=== PATIENT | female | born 1970 | race Caucasian/White ===

== ENCOUNTER 2021-01-01 16:02 | Emergency (ER) | payer MEDICAID, SELFPAY ==
[2021-01-01 16:03] VITALS: BP 113/87; PULSE 102; RESP 18; TEMP 36.1; O2SAT 100; BMI 30.7
--- NOTE | 2021-01-01 16:57 | CT_ITS ---
INDICATION: abd pain -- IV PO Contrast EXAMINATION: CT ABDOMEN AND PELVIS WITH CONTRAST - CT Abdomen And Pelvis W/ Contrast Injection TECHNIQUE: Helically acquired images were obtained of the abdomen and pelvis following IV contrast. A radiation dose optimization technique was used for this scan. IV Contrast dosage and agent: 100 mL of ISOVUE-370 Oral contrast: Not specified. COMPARISON: No recent comparison imaging. FINDINGS: LOWER CHEST: There is moderate bibasilar atelectasis. Only a small portion of the heart is included in the [id number]; not well assessed. No significant pericardial effusion. LIVER: Homogeneous. No focal mass. Note that the a small portion of the superior aspect of the liver is excluded from the bmbig-[id number] and is not visualized. GALLBLADDER AND BILIARY TREE: No calcified gallstones. No gallbladder distension or wall edema. No intra- or extrahepatic biliary ductal dilation. PANCREAS: No focal cystic or solid mass. SPLEEN: Normal size without focal cystic or solid mass. ADRENAL GLANDS: No nodules. KIDNEYS AND URETERS: Normal renal size and position. No hydronephrosis. PERITONEUM: No ascites or free air. No other fluid collection. BOWEL: Normal appendix identified. No stomach or bowel distension. No focal inflammatory change. LYMPH NODES: No enlarged mesenteric or retroperitoneal lymph nodes. VESSELS: Aorta is non-dilated. Scattered intimal calcifications without stenosis. URINARY BLADDER: Unremarkable. REPRODUCTIVE ORGANS: Absent. ABDOMINAL WALL: Small fat filled umbilical hernia. BONES: No lytic or blastic abnormality. CT/Abdomen/Pelvis WITH Contrast IMPRESSION: Negative CT of the abdomen and pelvis with contrast. Note that a small portion of the superior margin of the liver is excluded from the [id number]-[id number]. No abnormality suggested. Electronically Signed: Eagle Cartwright DO at 20:16 EDT Tel , Service support ,
--- NOTE | 2021-01-01 17:03 | EDS_ITS ---
HPI History of Present Illness Chief Complaint: Abd Pain Informant: patient Onset/Context/Timing Onset: Weeks Context: Gradual Onset Current Severity: Severe Maximum Severity: Severe Narrative Narrative: Patient presents with multitude of complaints. She states that 1 or 2 months ago she developed sores on her scalp. She started picking at her hair and has noted significant hair loss. Her skin has been very dry and burning. She saw her doctor was given a prescription for special shampoo and Eucerin cream. She states this is not improving. She reports trying to contact her doctor for follow-up but unable to get through on the phone. 3 weeks ago she developed back pain and has been seeing her chiropractor regularly. 1 week ago she noted the pain from her back was wrapping around the right flank and into the right abdomen. She does feel as if she is constipated. Last bowel movement was 4 days ago. She is passing gas. [facility] Medical History Bipolar 1 disorder Dystonic movements Restless leg syndrome Home Medications paroxetine HCl [Paxil CR] 50 mg PO DAILY 08/08/13 [History Last Taken 09/02/14] topiramate 200 mg PO DAILY 08/08/13 [History Last Taken 09/02/14] hydrocodone-acetaminophen 1 tab PO Q6H PRN 3 Days #10 tab 01/01/21 [Rx Last Taken Unknown] potassium chloride 20 meq PO BID #10 tab 01/01/21 [Rx Last Taken Unknown] Allergy/AdvReac Type Severity Reaction Status Date / Time lamotrigine [From Lamictal] Allergy Hives Verified 01/01/21 16:03 sulfamethoxazole Allergy Swelling Verified 01/01/21 16:03 [From Bactrim] trimethoprim [From Bactrim] Allergy Swelling Verified 01/01/21 16:03 clindamycin HCl AdvReac Nausea/Vom/ Verified 01/01/21 16:03 [From Cleocin] Diarrhea clindamycin palmitate HCl AdvReac Nausea/Vom/ Verified 01/01/21 16:03 [From Cleocin] Diarrhea clindamycin phosphate AdvReac Nausea/Vom/ Verified 01/01/21 16:03 [From Cleocin] Diarrhea Social History Smoking Status: Current every day smoker tobacco type: cigarettes ROS ROS ED Constitutional Constitutional ED: Denies chills or fever(s) Eyes Eyes: Denies change in vision ENT ENT ED: Denies sore throat Cardiovascular Cardiovascular: Denies chest pain Respiratory/Chest Respiratory/Chest: Denies cough or dyspnea Gastrointestinal Gastrointestinal: Reports abdominal pain, constipation and nausea; Denies diarrhea or vomiting Genitourinary Genitourinary ED: Denies dysuria Musculoskeletal Musculoskeletal: Reports back pain Integumentary Reports rash Neurologic Neurologic: Denies headache(s) or weakness Allergic/Immunologic Allergic/Immunologic ED: Denies urticaria EXAM Physical Exam Const Vital Signs: 01/01/21 16:03 01/01/21 19:17 Temperature 96.9 F L Temperature Source Temporal Pulse Rate 102 H Respiratory Rate 18 16 Blood Pressure 113/87 H Blood Pressure Mean 95 Pulse Ox 100 Oxygen Delivery Method Room Air Positive well nourished and well developed General Appearance ED: well developed HEENT Reports normocephalic and head/scalp atraumatic Eyes PERRL and EOMs intact bilaterally Neck supple Chest Wall inspection of chest normal and palpation of chest normal Resp normal respiratory effort and clear to auscultation bilaterally Cardio regular rate and regular rhythm GI Palpation: soft and tender RLQ and RUQ Extremity normal to inspection Neuro oriented x3 and no sensory deficits noted Sensorium / Orientation: alert Motor Exam: strength 5/5 throughout Psych mental status grossly normal Skin Skin Narrative: Scabbed lesions noted on her scalp and back. No sign of secondary infection. MDM MDM MDM Narrative Medical decision making narrative: Lab work, urinalysis, CT scan obtained. Patient was given morphine and Zofran for pain. Lab Data Attestation: I reviewed the patient's lab results. Labs: Laboratory Results - last 24 hr 01/01/21 01/01/21 01/01/21 17:25 17:25 17:35 WBC 7.7 RBC 4.59 Hgb 14.7 Hct 43.8 MCV 95.4 MCH 32.0 MCHC 33.6 RDW Std Deviation 50.7 H RDW Coeff of Sade 14.7 H Plt Count 292 MPV 9.2 Immature Gran % (Auto) 0.300 Neut % (Auto) 57.0 Lymph % (Auto) 33.2 [place] % (Auto) 5.9 Eos % (Auto) 2.7 Baso % (Auto) 0.9 Absolute Neuts (auto) 4.4 Absolute Lymphs (auto) 2.55 Nucleated RBC % 0 Sodium 142 Potassium 3.0 L Chloride 110 H Carbon Dioxide 26.0 Anion Gap 6 BUN 6 L Creatinine 1.03 H Estim Creat Clear Calc 55.25 Est GFR (MDRD) Af Amer 73 Est GFR (MDRD) Non-Af 61 BUN/Creatinine Ratio 5.8 L Glucose 88 Calcium 8.9 Total Bilirubin 0.50 Direct Bilirubin 0.11 AST 14 L ALT 20 Alkaline Phosphatase 168 H Total Protein 8.0 Albumin 3.9 Globulin 4.1 Lipase 54 L Urine Color Yellow Urine Clarity Cloudy Urine pH 7.0 Ur Specific [place] 1.010 Urine Protein 30 H Urine Glucose (UA) Normal Urine Ketones 5 H Urine Occult Blood 10 H Urine Nitrite Negative Urine Bilirubin Negative Urine Urobilinogen 1 H Ur Leukocyte Esterase 25 H Urine RBC 0-5 SEEN Urine WBC 0-5 SEEN Ur Squamous Epith Cells 5-10 SEEN Urine Bacteria 1+ Hyaline Casts 0-5 SEEN Urine Mucus 3+ Radiography Diagnostic Testing: Radiology Impression Abdomen/Pelvis CT 01/01/21 16:57 IMPRESSION: Negative CT of the abdomen and pelvis with contrast. Note that a small portion of the superior margin of the liver is excluded from the [id number]-ii-drgo. No abnormality suggested. Electronically Signed: Eagle Cartwright DO at 20:16 EDT Tel , Service support , Treatment and Re-Evaluation Comments:: Lab results significant only for potassium of 3.0. This was replaced orally in the emergency room. Urinalysis does show 1+ bacteria, however 5-10 epithelial cells and no other markers for infection. Test results discussed with the patient at bedside. Patient will be given analgesics and potassium replacement for home. Advised to follow-up with her primary care physician. Return instructions are provided. Discharge Plan Triage Chief Complaint: Abd Pain ED Provider: Val Domingo Dx/Rx/DC Orders Clinical Impression: Abdominal pain, Hypokalemia Instructions: ED Abdominal Pain Unkn Cause Fem, ED Hypokalemia Prescriptions: New hydrocodone-acetaminophen 5-325 mg tablet 1 tab PO Q6H PRN (Reason: pain) 3 Days Qty: 10 RF: 0 potassium chloride 20 mEq tablet extended release 20 meq PO BID Qty: 10 RF: 0 No Action topiramate 200 MG tablet 200 mg PO DAILY RF: 0 paroxetine HCl [Paxil CR] 25 MG tablet extended release 24 hr 50 mg PO DAILY RF: 0 Primary Care Provider: John Marcos Referrals: John Marcos MD [Primary Care Provider] - 1-2 Weeks Disposition Disposition: Home, Self Care
[2021-01-01] MEDS: 0.9% Normal Saline 1,000 ML 1000 ML IV (17:28)
[2021-01-01] MEDS: Morphine 4 MG/ML Syringe IV ×2 (17:28→20:41)
[2021-01-01] MEDS: Ondansetron 4 MG/2 ML Vial IV (17:28)
[2021-01-01 18:04] LABS: Absolute Lymphocyte Count 2.55 X10^3/uL (0.83-4.51); Absolute Neutrophil Count 4.4 X10^3/uL (2.0-7.7); Basophil# 0.07 X10^3/uL; Basophil% 0.9 % (0-1); Eosinophil# 0.21 X10^3/uL; Eosinophils% 2.7 % (0-5); Hematocrit 43.8 % (37-47); Hemoglobin 14.7 g/dL (12.0-15.0); Lymphocyte # 2.55 X10^3/ul (0.83-4.51); Lymphocyte % 33.2 % (19-41); Mean Corp Hgb Conc 33.6 g/dL (32-36); Mean Corpuscular Volume 95.4 fL (81-99); Mean Platelet Vol. 9.2 fl (6.2-12.0); Monocyte# 0.45 X10^3/uL; Monocyte% 5.9 % (0-10); NRBC Flagged by Analyzer 0 % (0-5); Neutrophil # 4.39 X10^3/uL (2.7-7.7); Platelet Count 292 K/mm3 (150-450); RBC Distribution Width CV 14.7 % (11.6-14.6); RBC Distribution Width SD 50.7 fl (35.1-43.9); Red Blood Count 4.59 M/mm3 (4.2-5.4); White Blood Count 7.7 K/mm3 (4.4-11.0)
[2021-01-01 18:27] LABS: AST(SGOT) 14 U/L (15-37); Alanine Aminotransfer ALT/SGPT 20 U/L (13-56); Albumin, Serum 3.9 g/dL (3.2-5.0); Alkaline Phosphatase 168 U/L (45-117); Anion Gap 6 (5-15); BUN 6 mg/dL (7-18); BUN/Creat Ratio 5.8 RATIO (10-20); Bilirubin, Direct 0.11 mg/dL (0.00-0.30); Calcium,Total 8.9 mg/dL (8.5-10.1); Chloride 110 mmol/L (98-107); Creatinine, Serum 1.03 mg/dL (0.55-1.02); EST Glomerular Filtration Rate 61 mL/min (>60); Est Glom Filt Rate - Afr Amer 73 mL/min (>60); Estimated Creatinine Clearance 55.25 ml/min; Globulin 4.1 g/dL (2.2-4.2); Glucose 88 mg/dL (74-106); Lipase 54 U/L (73-393); Sodium Level 142 mmol/L (136-145)
[2021-01-01 18:42] LABS: Color, Urine Yellow (Yellow); Glucose, Dipstick Normal (Normal); Ketone-Dipstick 5 mg/dl (Negative); Leukocyte Esterase-Dipstick 25 /ul (Negative); Nitrite-Dipstick Negative (Negative); Occult Blood-Urine 10 /ul (Negative); Protein-Dipstick 30 mg/dl (Negative); Urine Bilirubin Dipstick Negative (Negative); Urine Clarity Cloudy (Clear); Urine Urobilinogen 1 mg/dl (Normal)
[2021-01-01 18:53] LABS: Mucous, Urine 3+ /hpf (<or=2+)
[2021-01-01 18:55] LABS: Hyaline Cast 0-5 SEEN /lpf (0-5); Red Blood Cells-Urine 0-5 SEEN /hpf (0-5); Squamous Epithelial Cells - UA 5-10 SEEN /hpf (5-10); White Blood Cells 0-5 SEEN /hpf (0-5)
[2021-01-01 18:57] LABS: Bacteria 1+ /hpf (None Seen)
[2021-01-01 19:17] VITALS: RESP 16
[2021-01-01] MEDS: Ketorolac 30 MG/ML Syringe IV (20:39)
[2021-01-01] MEDS: Potassium Chloride Oral Tablet 20 MEQ 40 MEQ PO (20:39)
[2021-01-01 21:42] VITALS: BP 114/60; PULSE 78; RESP 18
== END 2021-01-01 21:43 | disposition home or self-care (01) ==
PROVIDERS: Emergency Provider Emergency Medicine; PCP Family Medicine
DX: R10.11 Right upper quadrant pain (principal); R10.31 Right lower quadrant pain; E87.6 Hypokalemia; F31.9 Bipolar disorder, unspecified; F17.210 Nicotine dependence, cigarettes, uncomplicated; Z79.899 Other long term (current) drug therapy
CPT/HCPCS: 74177; 80048; 80076; 81001; 83690; 85025; 96361; 96374; 96375; 99283; J7030; Q9967; A4216; J2405

== ENCOUNTER 2021-01-09 17:53 | Emergency (ER) | payer MEDICAID, SELFPAY ==
[2021-01-09 17:56] VITALS: BP 94/73; PULSE 111; RESP 17; TEMP 36.9; O2SAT 97; BMI 30.6
[2021-01-09 18:16] VITALS: BP 144/108; PULSE 119; RESP 20; O2SAT 96
--- NOTE | 2021-01-09 18:46 | EDS_ITS ---
HPI History of Present Illness Chief Complaint: Abd Pain Informant: patient Narrative Narrative: 50-year-old female presenting to emergency department with multiple medical complaints. She tells me that she has some sores in her head and has been losing her hair and saw her doctor for this yesterday. She notes that her body hurts all over. She was seen in the emergency department 8 days ago with constipation. At that time basic blood work was normal and a CT of the abdomen pelvis did not demonstrate anything acute. She states she has not yet had a bowel movement. She has tried several hnwi-lsv-puxurug outlets with no relief. She states she feels very bloated. Today she was at her daughter's house and felt a warm gushing sensation in the right lower quadrant going down her right medial thigh. She denies any urinary symptoms. Patient states that she is ex tremely emotional and starts to cry because she feels that no one is listening to her and helping her with her medical issues. Nursing reports that the patient had a possible syncopal episode in triage. Patient did not have any postictal symptoms. [facility] Medical History Bipolar 1 disorder Dystonic movements Restless leg syndrome Home Medications paroxetine HCl [Paxil CR] 50 mg PO DAILY 08/08/13 [History Last Taken 09/02/14] topiramate 200 mg PO DAILY 08/08/13 [History Last Taken 09/02/14] hydrocodone-acetaminophen 1 tab PO Q6H PRN 3 Days #10 tab 01/01/21 [Rx Last Taken Unknown] ammonium lactate TOPICAL 01/09/21 [History Last Taken Unknown] mupirocin TOPICAL 01/09/21 [History Last Taken Unknown] polyethylene glycol 3350 01/09/21 [History Last Taken Unknown] prednisone 01/09/21 [History Last Taken Unknown] Allergy/AdvReac Type Severity Reaction Status Date / Time lamotrigine [From Lamictal] Allergy Hives Verified 01/09/21 17:56 sulfamethoxazole Allergy Swelling Verified 01/09/21 17:56 [From Bactrim] trimethoprim [From Bactrim] Allergy Swelling Verified 01/09/21 17:56 clindamycin HCl AdvReac Nausea/Vom/ Verified 01/09/21 17:56 [From Cleocin] Diarrhea clindamycin palmitate HCl AdvReac Nausea/Vom/ Verified 01/09/21 17:56 [From Cleocin] Diarrhea clindamycin phosphate AdvReac Nausea/Vom/ Verified 01/09/21 17:56 [From Cleocin] Diarrhea Social History (Updated 01/09/21 @ 18:[address] Endy Haynes, DO) Smoking Status: Current every day smoker tobacco type: cigarettes substance use type: does not use ROS ROS ED Constitutional Constitutional ED: Denies chills or weight loss Eyes Eyes: Denies change in vision or diplopia ENT ENT ED: Denies ear pain, rhinorrhea or sore throat Cardiovascular Cardiovascular: Denies chest pain, orthopnea, palpitations or racing heartbeat Respiratory/Chest Respiratory/Chest: Denies cough, dyspnea or orthopnea Gastrointestinal Gastrointestinal: Reports abdominal pain and constipation; Denies diarrhea, nausea or vomiting Genitourinary Genitourinary ED: Denies dysuria, hematuria or urinary frequency Musculoskeletal Musculoskeletal: Reports myalgias; Denies arthralgias Integumentary Reports rash; Denies abscess Neurologic Neurologic: Denies headache(s) or weakness Psychiatric Psychiatric: Denies anxiety, depression, suicidal ideation or suicidal thoughts Endocrine Endocrinology: Denies polydipsia, polyphagia or polyuria Allergic/Immunologic Allergic/Immunologic ED: Denies mouth swelling, tongue swelling or urticaria EXAM Physical Exam Const Vital Signs: 01/09/21 17:56 01/09/21 18:16 Temperature 98.5 F Temperature Source Temporal Pulse Rate 111 H 119 H Respiratory Rate 17 20 H Blood Pressure 94/73 144/108 H Blood Pressure Mean 80 120 Pulse Ox 97 96 Oxygen Delivery Method Room Air Room Air Positive well nourished, well developed and obese General Appearance ED: well developed Nutritional Appearance: obese HEENT Reports normocephalic, head/scalp atraumatic, TM's clear and moist mucous membranes HEENT Narrative: Patient has some flat erythematous patches on her scalp each 1/2 cm or less. Lot of the hair has been shaved off. Tympanic Membrane ED: Yes TM's clear Eyes PERRL and EOMs intact bilaterally Neck no lymphadenopathy, supple and no JVD Resp normal respiratory effort and clear to auscultation bilaterally Cardio regular rate, regular rhythm and no murmurs GI GI Narrative: Patient complains of tenderness palpation over the lower quadrants. There is no guarding or rebound. She states that despite it hurting when I push it actually feels good. Palpation: soft; Negative for guarding Back/Spine no CVA tenderness and normal ROM Extremity normal to inspection General Extremety ED: Negative for edema General Extremity: Negative for edema Neuro oriented x3 and CN's II-XII intact bilaterally Sensorium / Orientation: alert Motor Exam: strength 5/5 throughout Psych mental status grossly normal Mood & Affect: Negative for depressed or tearful Skin no rashes or lesions noted and no wounds MDM MDM MDM Narrative Medical decision making narrative: Urinalysis is slightly contaminated but no overt infection. My interpretation of the plain films of the abdomen is no obstructive pattern abscess or fecal impaction. Patient does not appear to have a significant stool burden either. Her feeling of a warm gush cross the lower abdomen is unique. I do not see anything emergent causing the patient's symptoms I would recommend continued follow-up with her doctor. Lab Data Labs: Laboratory Results - last 24 hr 01/09/21 18:56 Urine Color Yellow Urine Clarity Clear Urine pH 8.0 Ur Specific [place] 1.010 Urine Protein Negative Urine Glucose (UA) Normal Urine Ketones Negative Urine Occult Blood Negative Urine Nitrite Negative Urine Bilirubin Negative Urine Urobilinogen Normal Ur Leukocyte Esterase 100 H Urine RBC 0 SEEN Urine WBC 0-5 SEEN Ur Squamous Epith Cells 5-10 SEEN Urine Bacteria 0 SEEN Urine Mucus 0 SEEN Urine Yeast 1+ Discharge Plan Triage Chief Complaint: Abd Pain ED Provider: Endy Haynes Dx/Rx/DC Orders Clinical Impression: Abdominal pain, Constipation Instructions: How the Colon Works Prescriptions: No Action topiramate 200 MG tablet 200 mg PO DAILY RF: 0 paroxetine HCl [Paxil CR] 25 MG tablet extended release 24 hr 50 mg PO DAILY RF: 0 hydrocodone-acetaminophen 5-325 mg tablet 1 tab PO Q6H PRN (Reason: pain) 3 Days Qty: 10 RF: 0 prednisone 10 mg tablet RF: 0 ammonium lactate 12 % lotion TOPICAL RF: 0 mupirocin 2 % ointment TOPICAL RF: 0 polyethylene glycol 3350 17 gram/dose powder RF: 0 Primary Care Provider: John Marcos Referrals: John Marcos MD [Primary Care Provider] - 1 Week Disposition Disposition: Home, Self Care
[2021-01-09 19:03] LABS: Bacteria 0 SEEN /hpf (None Seen); Mucous, Urine 0 SEEN /hpf (<or=2+); Red Blood Cells-Urine 0 SEEN /hpf (0-5)
[2021-01-09 19:04] LABS: Color, Urine Yellow (Yellow); Glucose, Dipstick Normal (Normal); Ketone-Dipstick Negative (Negative); Leukocyte Esterase-Dipstick 100 /ul (Negative); Nitrite-Dipstick Negative (Negative); Occult Blood-Urine Negative /ul (Negative); Protein-Dipstick Negative (Negative); Urine Bilirubin Dipstick Negative (Negative); Urine Clarity Clear (Clear); Urine Urobilinogen Normal (Normal)
--- NOTE | 2021-01-09 19:07 | RAD_ITS ---
STUDY: X-RAY - ABDOMEN/PELVIS REASON FOR EXAM: Female, 50 years old. constipation , right lower abdominal pain TECHNIQUE: Frontal view of the abdomen COMPARISON: 01 January 2021 FINDINGS: Normal visualized lung bases. There is an nonobstructive bowel gas pattern. There is no demonstrated free abdominal air. The visualized liver, spleen and kidneys are grossly normal in size and morphology. Normal soft tissue structures. Normal visualized osseous structures. RAD/Abdomen Single View IMPRESSION: Normal abdomen and bowel. Electronically Signed: Monika Hawkins MD at 20:37 EDT Tel , Service support ,
[2021-01-09 19:10] LABS: Squamous Epithelial Cells - UA 5-10 SEEN /hpf (5-10); White Blood Cells 0-5 SEEN /hpf (0-5); Yeast-Urine 1+ /hpf (None Seen)
--- NOTE | 2021-01-09 19:32 | ED.RN ---
PT REQUESTING ICE CHIPS, SOMETHING TO DRINK, AND SOME MORPHINE FOR THE PAIN IN HER MOUTH. DR HARO NOTIFIED OF THE SAME. ORDERS ENTERED. PT GIVEN A CUP OF ICE CHIPS
[2021-01-09] MEDS: Ketorolac 60 MG/2 ML Vial IM (19:37)
== END 2021-01-09 19:56 | disposition home or self-care (01) ==
PROVIDERS: Emergency Provider Emergency Medicine; PCP Family Medicine
DX: K59.00 Constipation, unspecified (principal); F31.9 Bipolar disorder, unspecified; F17.210 Nicotine dependence, cigarettes, uncomplicated; E66.9 Obesity, unspecified; Z68.30 Body mass index [BMI] 30.0-30.9, adult; Z79.899 Other long term (current) drug therapy
CPT/HCPCS: 74018; 81001; 96372; 99284

== ENCOUNTER → 2021-01-13 16:30 | Outpatient (CLI) | payer MEDICAID, SELFPAY ==
[2021-01-13 18:18] LABS: T3 Total - Triiodothyronine 0.92 ng/mL (0.6-1.81); Vitamin B12 375 pg/mL (211-911)
[2021-01-13 18:31] LABS: Ferritin 108 ng/mL (8-252); T4 Free Direct 0.76 ng/dL (0.76-1.46); Thyroid Stim Hormone (TSH) 1.89 uIU/mL (0.358-3.74)
[2021-01-16 16:54] LABS: Vitamin D 1,25-Dihydroxy 75.9 pg/mL (19.9-79.3)
[2021-01-21 09:30] LABS: Thyroid Peroxidase AB < 8 IU/mL (0-34); Zinc, Plasma or Serum 68 ug/dL (44-115)
== END ==
PROVIDERS: PCP Family Medicine; Referring Provider Physician Assistant Medical; Visit Provider Physician Assistant Medical
DX: L63.8 Other alopecia areata (principal); L85.3 Xerosis cutis; D48.5 Neoplasm of uncertain behavior of skin
CPT/HCPCS: 36415; 82306; 82607; 82652; 82728; 82746; 84439; 84443; 84480; 84630; 86376

== ENCOUNTER 2021-02-16 03:53 | Inpatient (IN) | payer MEDICAID, SELFPAY ==
[2021-02-16] VITALS (11 sets, daily range): BP systolic 116–164; BP diastolic 81–122; PULSE 85–99; RESP 14–18; TEMP 36.3–36.9; O2SAT 95–100; BMI 31.6
--- NOTE | 2021-02-16 03:58 | RAD_ITS ---
EXAM: XR Chest, 1 View CLINICAL INDICATION: 50 years old, Female; sob TECHNIQUE: Frontal view of the chest. This report was created using [employer] report generation technology. COMPARISON: None. FINDINGS: Lungs and pleural spaces: Atelectasis in the lung bases. No pneumothorax. No effusion. Heart: Unremarkable. Cardiac silhouette not enlarged. Mediastinum: Central airways and mediastinal contour are unremarkable. Bones/joints: Unremarkable. Soft tissues: Unremarkable. RAD/Chest 1 View (Portable) IMPRESSION: No acute findings in the chest. Electronically Signed: Zack Macedo MD at 5:08 EDT Tel , Service support ,
--- NOTE | 2021-02-16 03:58 | EKG12_ITS ---
Test Reason : CP Blood Pressure : / mmHG Vent. Rate : 099 BPM Atrial Rate : 099 BPM P-R Int : 138 ms QRS Dur : 078 ms QT Int : 376 ms P-R-T Axes : 036 018 034 degrees QTc Int : 482 ms Sinus rhythm with Premature atrial complexes Prolonged QT Abnormal ECG Confirmed by CJ MORGAN, SAMREEN ([id number]), content editor QUIQUE CABRERA ([id number]) on 02/18/2021 8:58:17 AM Referred By: CLARA Confirmed By:SAMREEN CORONA MD
--- NOTE | 2021-02-16 03:58 | CT_ITS ---
EXAM: CT Head Without Intravenous Contrast CLINICAL INDICATION: 50 years old, Female; seizure TECHNIQUE: Multiple axial images were obtained of the head without intravenous contrast. This CT exam was performed using one or more of the following dose reduction techniques: automated exposure control, adjustment of the mA and/or kV according to patient size, and/or use of iterative reconstruction technique. This report was created using [employer] report generation technology. COMPARISON: None. FINDINGS: Brain and extra-axial spaces: Mild small vessel mild mucosal thickening left maxillary sinus. No intra- or extra-axial hemorrhage. No evidence of acute infarct. No intracranial mass or mass effect. There is preservation of the jensen/white matter interface. Posterior fossa structures are unremarkable. Ventricles are appropriate for age. No hydrocephalus. Basal cisterns are patent. Bones/joints: Unremarkable. No discrete lytic or blastic abnormalities. Sinuses: Unremarkable as visualized. Clear. Mastoid air cells: Unremarkable. Clear. Orbits: Visualized globes, extraocular muscles, optic nerves and retrobulbar fat appear unremarkable. CT/Brain/Head without Contrast IMPRESSION: No acute findings in the head/brain. Electronically Signed: Zack Macedo MD at 5:06 EDT Tel , Service support ,
--- NOTE | 2021-02-16 04:10 | EDS_ITS ---
HPI History of Present Illness Chief Complaint: Chest Pain Informant: patient and family Onset/Context/Timing Onset: Month(s) Current Severity: Moderate Maximum Severity: Moderate Narrative Narrative: Patient presents with family members reporting chest pain for the past couple of months. Just before arrival tonight she developed shortness of breath and dizziness. She states she felt she was going to pass out. While I was examining the patient she had what appeared to be a tonic-clonic seizure lasting approximately 2 minutes. Daughter denies any history of seizure activity. She states the patient was recently started on BuSpar. PFSH PFSH Medical History Bipolar 1 disorder Dystonic movements PTSD (post-traumatic stress disorder) Restless leg syndrome Tobacco use Home Medications paroxetine HCl [Paxil CR] 50 mg PO QHS 08/08/13 [History Last Taken 09/02/14] topiramate 200 mg PO BID 08/08/13 [History Last Taken 09/02/14] polyethylene glycol 3350 DAILY PRN PRN 01/09/21 [History Last Taken Unknown] amantadine HCl 100 mg BID 02/16/21 [History Last Taken Unknown] azithromycin 250 mg PO DAILY 02/16/21 [History Last Taken Unknown] buspirone 15 mg PO BID 02/16/21 [History Last Taken Unknown] clobetasol 1 applic TOPICAL BID 02/16/21 [History Last Taken Unknown] hydroxyzine pamoate [Vistaril] 50 mg PO BID PRN 02/16/21 [History Last Taken Unknown] risperidone 1 mg PO QHS 02/16/21 [History Last Taken Unknown] zinc oxide 1 applic BID 02/16/21 [History Last Taken Unknown] Allergy/AdvReac Type Severity Reaction Status Date / Time lamotrigine [From Lamictal] Allergy Hives Verified 01/09/21 17:56 sulfamethoxazole Allergy Swelling Verified 01/09/21 17:56 [From Bactrim] trimethoprim [From Bactrim] Allergy Swelling Verified 01/09/21 17:56 clindamycin HCl AdvReac Nausea/Vom/ Verified 01/09/21 17:56 [From Cleocin] Diarrhea clindamycin palmitate HCl AdvReac Nausea/Vom/ Verified 01/09/21 17:56 [From Cleocin] Diarrhea clindamycin phosphate AdvReac Nausea/Vom/ Verified 01/09/21 17:56 [From Cleocin] Diarrhea Family History (Updated 02/16/21 @ 04:[address] Lorena Finch MD) Mother Diabetes Hypertension Rheumatoid arthritis Father Cancer Surgical History (Updated 02/16/21 @ 04:[address] Lorena Finch MD) S/P hysterectomy S/P tonsillectomy and adenoidectomy Social History (Updated 02/16/21 @ 04:[address] Lorena Finch MD) household members: family Smoking Status: Current every day smoker tobacco type: cigarettes alcohol intake: never substance use type: does not use ROS ROS ED Constitutional Constitutional ED: Denies chills or fever(s) Eyes Eyes: Denies change in vision ENT ENT ED: Denies sore throat Cardiovascular Cardiovascular: Reports chest pain Respiratory/Chest Respiratory/Chest: Reports dyspnea; Denies cough Gastrointestinal Gastrointestinal: Reports abdominal pain; Denies diarrhea, nausea or vomiting Genitourinary Genitourinary ED: Denies dysuria Musculoskeletal Musculoskeletal: Denies back pain Integumentary Reports other Details: Wound on abdominal wall that is been draining ; Denies rash Neurologic Neurologic: Denies headache(s) or weakness Psychiatric Psychiatric: Reports anxiety Allergic/Immunologic Allergic/Immunologic ED: Denies urticaria EXAM Physical Exam Const Vital Signs: 02/16/21 03:54 02/16/21 04:20 02/16/21 04:36 Temperature 98.4 F Temperature Source Temporal Pulse Rate 97 99 Respiratory Rate 14 18 Respiratory Effort Normal Non-Labored Blood Pressure 125/94 H 129/99 H Blood Pressure Mean 104 109 Pulse Ox 96 97 Oxygen Delivery Method Room Air Room Air 02/16/21 05:04 Temperature 98.4 F Temperature Source Temporal Pulse Rate 98 Respiratory Rate 16 Respiratory Effort Blood Pressure 164/122 H Blood Pressure Mean 136 Pulse Ox 100 Oxygen Delivery Method Room Air Positive well nourished and well developed General Appearance ED: well developed Neck supple Neck Narrative: No meningismus. Chest Wall inspection of chest normal and palpation of chest normal Resp normal respiratory effort and clear to auscultation bilaterally Cardio regular rate and regular rhythm GI normal to inspection, nondistended, normoactive bowel sounds and non-tender Palpation: soft Extremity normal to inspection Neuro oriented x3 Neuro Narrative: No focal neuro deficits. Sensorium / Orientation: alert Skin Skin Narrative: Superficial skin wound noted just inferior to the umbilicus. No sign of infection. MDM MDM MDM Narrative Medical decision making narrative: Patient was given 1 mg of IV Ativan for seizure-like activity. Patient is placed on cardiac care nurse. EKG, lab work, head CT, chest x-ray ordered. Lab Data Attestation: I reviewed the patient's lab results. Labs: Laboratory Results - last 24 hr 02/16/21 02/16/21 02/16/21 04:00 04:00 04:00 WBC 9.8 RBC 4.43 Hgb 14.5 Hct 42.9 MCV 96.8 MCH 32.7 H MCHC 33.8 RDW Std Deviation 51.5 H RDW Coeff of Sade 14.2 Plt Count 283 MPV 9.2 Immature Gran % (Auto) 0.200 Neut % (Auto) 46.9 L Lymph % (Auto) 46.0 H [place] % (Auto) 5.3 Eos % (Auto) 1.0 Baso % (Auto) 0.6 Absolute Neuts (auto) 4.6 Absolute Lymphs (auto) 4.49 Nucleated RBC % 0 D-Dimer Quant (PE/DVT) 0.84 H* Sodium 141 Potassium 3.1 L Chloride 107 Carbon Dioxide 24.0 Anion Gap 10 BUN 4 L Creatinine 1.02 Estim Creat Clear Calc 55.80 Est GFR (MDRD) Af Amer 74 Est GFR (MDRD) Non-Af 61 BUN/Creatinine Ratio 3.9 L Glucose 101 Lactic Acid Calcium 9.7 Total Bilirubin 0.20 Direct Bilirubin 0.06 AST 17 ALT 21 Alkaline Phosphatase 141 H Troponin I High Sens 5 Total Protein 7.0 Albumin 3.3 Globulin 3.7 Ethyl Alcohol 02/16/21 02/16/21 04:00 04:41 WBC RBC Hgb Hct MCV MCH MCHC RDW Std Deviation RDW Coeff of Sade Plt Count MPV Immature Gran % (Auto) Neut % (Auto) Lymph % (Auto) [place] % (Auto) Eos % (Auto) Baso % (Auto) Absolute Neuts (auto) Absolute Lymphs (auto) Nucleated RBC % D-Dimer Quant (PE/DVT) Sodium Potassium Chloride Carbon Dioxide Anion Gap BUN Creatinine Estim Creat Clear Calc Est GFR (MDRD) Af Amer Est GFR (MDRD) Non-Af BUN/Creatinine Ratio Glucose Lactic Acid 1.7 Calcium Total Bilirubin Direct Bilirubin AST ALT Alkaline Phosphatase Troponin I High Sens Total Protein Albumin Globulin Ethyl Alcohol < 3.0 Radiography Chest X-Ray - ED: 1 View, Read by ED Physician, Normal, Heart, Lungs and Mediastinum Diagnostic Testing: Clinical Impression(s) from Imaging Studies Brain CT 02/16/21 03:58 IMPRESSION: No acute findings in the head/brain. Electronically Signed: Zack Macedo MD at 5:06 EDT Tel , Service support , Chest X-Ray 02/16/21 03:58 IMPRESSION: No acute findings in the chest. Electronically Signed: Zack Macedo MD at 5:08 EDT Tel , Service support , Chest CTA 02/16/21 04:43 IMPRESSION: No pulmonary embolism is identified. Motion artifact limits evaluation of the distal pulmonary arteries. Electronically Signed: Zack Macdeo MD at 5:58 EDT Tel , Service support , EKG Initial EKG: Attestation: I personally reviewed and interpreted this EKG as follows: Interpretation: Sinus Rhythm (Sinus at 99 bpm with no acute ischemia.) Treatment and Re-Evaluation Comments:: Patient's lab work significant for potassium of 3.1. Troponin normal. D-dimer slightly elevated at 0.84. EtOH level negative. Tox screen pending. Head CT unremarkable. Patient given a dose of Toradol for complaint of headache. Chest x-ray reveals no focal infiltrate. CTA of the chest ordered given patient's elevated D-dimer with complaints of chest pain and shortness of breath. Patient discussed with hospitalist for admission. Discharge Plan Dx/Rx/DC Orders Clinical Impression: Chest pain, Seizure-like activity, Hypokalemia Disposition Disposition: Acute Care Hospital [facility] Discharge Date/Time: 02/16/21 05:55
[2021-02-16] MEDS: LORazepam 2 MG/ML Syringe 1 MG IV (04:11)
[2021-02-16 04:16] LABS: Absolute Lymphocyte Count 4.49 X10^3/uL (0.83-4.51); Absolute Neutrophil Count 4.6 X10^3/uL (2.0-7.7); Basophil# 0.06 X10^3/uL; Basophil% 0.6 % (0-1); Hematocrit 42.9 % (37-47); Hemoglobin 14.5 g/dL (12.0-15.0); Lymphocyte # 4.49 X10^3/ul (0.83-4.51); Mean Corp Hgb Conc 33.8 g/dL (32-36); Mean Corpuscular Hgb 32.7 pg (27.0-32.0); Mean Corpuscular Volume 96.8 fL (81-99); Mean Platelet Vol. 9.2 fl (6.2-12.0); Monocyte# 0.52 X10^3/uL; Monocyte% 5.3 % (0-10); NRBC Flagged by Analyzer 0 % (0-5); Neutrophil # 4.58 X10^3/uL (2.7-7.7); Neutrophil % 46.9 % (47-70); Platelet Count 283 K/mm3 (150-450); RBC Distribution Width CV 14.2 % (11.6-14.6); RBC Distribution Width SD 51.5 fl (35.1-43.9); Red Blood Count 4.43 M/mm3 (4.2-5.4); White Blood Count 9.8 K/mm3 (4.4-11.0)
[2021-02-16 04:35] LABS: D-Dimer Quantitative (DVT/PE) 0.84 FEU/ug/m (0.27-0.49)
[2021-02-16 04:37] LABS: AST(SGOT) 17 U/L (15-37); Alanine Aminotransfer ALT/SGPT 21 U/L (13-56); Albumin, Serum 3.3 g/dL (3.2-5.0); Alkaline Phosphatase 141 U/L (45-117); Anion Gap 10 (5-15); BUN 4 mg/dL (7-18); BUN/Creat Ratio 3.9 RATIO (10-20); Bilirubin, Direct 0.06 mg/dL (0.00-0.30); Calcium,Total 9.7 mg/dL (8.5-10.1); Chloride 107 mmol/L (98-107); Creatinine, Serum 1.02 mg/dL (0.55-1.02); EST Glomerular Filtration Rate 61 mL/min (>60); Est Glom Filt Rate - Afr Amer 74 mL/min (>60); Globulin 3.7 g/dL (2.2-4.2); Glucose 101 mg/dL (74-106); Potassium 3.1 mmol/L (3.5-5.1); Sodium Level 141 mmol/L (136-145); Troponin-I HS 5 pg/mL (3.0-54.0)
--- NOTE | 2021-02-16 04:43 | CT_ITS ---
EXAM: CT Angiography Chest Without and With Intravenous Contrast CLINICAL INDICATION: 50 years old, Female; cp, sob TECHNIQUE: Helically acquired angiography images were obtained of the chest without and with intravenous contrast. This CT exam was performed using one or more of the following dose reduction techniques: automated exposure control, adjustment of the mA and/or kV according to patient size, and/or use of iterative reconstruction technique. This report was created using [employer] report generation technology. MIP reconstructed images were created and reviewed. CONTRAST: IV 100mL Isovue-300 COMPARISON: None. FINDINGS: Artifacts: Motion artifact. Pulmonary arteries: Unremarkable. Normal in caliber. No pulmonary embolism is identified. Motion artifact limits evaluation of the distal pulmonary arteries. Aorta: Unremarkable. Normal in caliber. No evidence of dissection. Great vessels of aortic arch: Unremarkable. Normal in caliber. No evidence of dissection. Lungs and pleural spaces: Unremarkable. No mass. No consolidation or edema. No pleural effusion or thickening. No pneumothorax. Heart: Unremarkable. Heart size is normal. No pericardial effusion. No signs of right heart strain, ratio of right ventricle to left ventricle measures less than 1. Mediastinum: Unremarkable. No mediastinal or hilar adenopathy. Esophagus is unremarkable. No hiatal hernia. Thyroid: Unremarkable. No thyroid lesions. Bones/joints: Unremarkable. No suspicious lytic or blastic abnormality. CT/CTA Chest W/WO Contrast IMPRESSION: No pulmonary embolism is identified. Motion artifact limits evaluation of the distal pulmonary arteries. Electronically Signed: Zack Macedo MD at 5:58 EDT Tel , Service support ,
[2021-02-16] MEDS: Ketorolac 30 MG/ML Syringe IV (04:54)
[2021-02-16] MEDS: Potassium Chloride 10mEq/100mL 10 MEQ/100 ML IV.SOLN. 100 MEQ IV BOLUS ×4 (04:55→08:46)
[2021-02-16 04:57] LABS: Alcohol, Blood (Medical)-Serum < 3.0 mg/dL
--- NOTE | 2021-02-16 05:18 | PCM.HP.STD ---
HPI - General General Date of Admission: 02/16/21 Date of Service: 02/16/21 Chief Complaint: Chest pain, near syncope, possible seizure activity. HPI Narrative The patient is a 50 y/o F w/ PMHx: Anxiety and Depression/Bipolar disorder/PTSD, RLS, Tobacco use who presents to the [facility] ED on 02/16/21 with history of initially several months of intermittent chest discomfort however on day of presentation she reported concurrently lightheadedness and dizziness with near syncopal sensation prompting family to bring her to the ED and while being evaluated had onset of 2 minutes of tonic clonic appearing seizure activity. Per family report patient was recently started on buspar. From review of records patient did have admission in 2014 with at that time dystonic movements, phonic tics and complex motor tics evaluated per neurology with diagnosis of acute psychosis with complex motor tics and phonic tics with unremarkable MRI and EEG at that time with crisis evaluation and transition to psychiatric facility for evaluation. Patient also reports ongoing issues with abdominal fullness, chronic various skin conditions in addition to intermittent midsternal nonradiating chest discomfort, occurs at rest and with activity, rates it varying between 3-7 out of 10 in severity, currently none and this is been ongoing over the last several months. Patient does report dyspnea with these episodes. Work-up in the ED included T 98.4, heart 9 7, BP 125/94, respiratory rate 14, 96% on room air, CBC with WC 9.8, hemoglobin 14.5, platelet 283 without marked shift, D-dimer 0.84 with CTPA pending upon evaluation, CMP potassium 3.1, alk phos 141 otherwise not marked appearing, ethyl alcohol less than 3, EKG with sinus rhythm with no acute evidence of ischemia, chest x-ray with no acute cardiopulmonary findings, CT of the head with no acute intracranial findings, rapid Covid antigen negative, cardiac enzyme 5, blood culture x2 pending per ED. in the ED patient ministered potassium 40 mill equivalent, Ativan 1 mg IV x1 and Toradol 30 mg IV x1. PFSH Medical History Bipolar 1 disorder Dystonic movements PTSD (post-traumatic stress disorder) Restless leg syndrome Tobacco use Home Medications paroxetine HCl [Paxil CR] 50 mg PO DAILY 08/08/13 [History Last Taken 09/02/14] topiramate 200 mg PO DAILY 08/08/13 [History Last Taken 09/02/14] hydrocodone-acetaminophen 1 tab PO Q6H PRN 3 Days #10 tab 01/01/21 [Rx Last Taken Unknown] ammonium lactate TOPICAL 01/09/21 [History Last Taken Unknown] mupirocin TOPICAL 01/09/21 [History Last Taken Unknown] polyethylene glycol 3350 01/09/21 [History Last Taken Unknown] prednisone 01/09/21 [History Last Taken Unknown] Allergy/AdvReac Type Severity Reaction Status Date / Time lamotrigine [From Lamictal] Allergy Hives Verified 01/09/21 17:56 sulfamethoxazole Allergy Swelling Verified 01/09/21 17:56 [From Bactrim] trimethoprim [From Bactrim] Allergy Swelling Verified 01/09/21 17:56 clindamycin HCl AdvReac Nausea/Vom/ Verified 01/09/21 17:56 [From Cleocin] Diarrhea clindamycin palmitate HCl AdvReac Nausea/Vom/ Verified 01/09/21 17:56 [From Cleocin] Diarrhea clindamycin phosphate AdvReac Nausea/Vom/ Verified 01/09/21 17:56 [From Cleocin] Diarrhea Family History (Updated 02/16/21 @ 04:[address] Lorena Finch MD) Mother Diabetes Hypertension Rheumatoid arthritis Father Cancer Surgical History (Updated 02/16/21 @ 04:[address] Lorena Finch MD) S/P hysterectomy S/P tonsillectomy and adenoidectomy Social History (Updated 02/16/21 @ 04:[address] Lorena Finch MD) household members: family Smoking Status: Current every day smoker tobacco type: cigarettes alcohol intake: never substance use type: does not use ROS ROS Narrative Admission Review of Systems: CONSTITUTIONAL: No weight loss, fever, chills, + weakness or fatigue. HEENT: + Chronic hair loss which she reports is from stress. Eyes: No visual loss, blurred vision, double vision or yellow sclerae. Ears, Nose, Throat: No hearing loss, sneezing, congestion, runny nose or sore throat. SKIN: + Chronic wounds, not infected. CARDIOVASCULAR: + chest pain, chest pressure or chest discomfort, near syncopal sensation, No palpitations, edema, orthopnea. RESPIRATORY: + shortness of breath, No cough or sputum, wheezing, hemoptysis. GASTROINTESTINAL: No anorexia, nausea, vomiting or diarrhea, abdominal pain, melena, BRBPR. GENITOURINARY: No dysuria, frequency, urgency or retention. NEUROLOGICAL: + ? Seizure like activity, near syncope, No headache, paralysis, ataxia, numbness or tingling in the extremities, focal weakness, change in bowel or bladder control. MUSCULOSKELETAL: + muscle, back pain, joint pain or stiffness. HEMATOLOGIC: No anemia, bleeding or bruising. LYMPHATICS: No enlarged nodes. No history of splenectomy. PSYCHIATRIC: + history of depression or anxiety. ENDOCRINOLOGIC: No reports of sweating, cold or heat intolerance. No polyuria or polydipsia. ALLERGIES: No history of asthma, hives, eczema or rhinitis. Vital Signs Vital Signs Vital Signs: 02/16/21 03:54 02/16/21 04:20 02/16/21 04:36 Temperature 98.4 F Temperature Source Temporal Pulse Rate 97 99 Respiratory Rate 14 18 Respiratory Effort Normal Non-Labored Blood Pressure 125/94 H 129/99 H Blood Pressure Mean 104 109 Pulse Ox 96 97 Oxygen Delivery Method Room Air Room Air 02/16/21 05:04 Temperature Temperature Source Pulse Rate 98 Respiratory Rate 16 Respiratory Effort Blood Pressure 164/122 H Blood Pressure Mean 136 Pulse Ox 100 Oxygen Delivery Method Room Air Weight Weight: 178 lb 5.663 oz Body Mass Index (BMI) 31.6 Physical Exam Narrative Physical Examination: General: Awake, alert, oriented x 3, no visible evidence of any kind of postictal phase, remains cooperative, seated upright in the ED bed in no apparent distress. Skin: Normal color, normal turgor, no icterus, no cyanosis except very staged what appears to be picked regions to the thorax, scalp as well as the abdomen, noninfected appearing. HEENT: AT/NC, EOMI, PERRLA, mildly dry MM, no carotid bruits or JVD noted. Lungs: Diminished, greater bases, moderate effort, no rales, ronchi or wheezing. Heart: Mildly tachycardic with regular rhythm; no gallop, rub audible. Abdomen: Soft, despite patient reported discomfort NTTP, no obvious distention, distant normal BS, no obvious evidence of HSM. Extremities: No cyanosis, clubbing, or edema. Neurological: Patient awake, alert, oriented as noted, cognitive function intact; pupils equally reactive to light and accommodation, cranial nerves II-XII grossly normal, moving all 4 extremities, no focal deficits, strength appears intact, no evidence of any postictal phase. Psychiatric: Affect appears normal, mildly irritable to questioning, no acute evidence of depressive or anxiety feelings. Results Lab / Micro Data Result Diagrams: 02/16/21 04:00 02/16/21 04:00 Labs: Laboratory Results - last 24 hr 02/16/21 04:00: WBC 9.8, RBC 4.43, Hgb 14.5, Hct 42.9, MCV 96.8, MCH 32.7 H, MCHC 33.8, RDW Std Deviation 51.5 H, RDW Coeff of Sade 14.2, Plt Count 283, MPV 9.2, Immature Gran % (Auto) 0.200, Neut % (Auto) 46.9 L, Lymph % (Auto) 46.0 H, [place] % (Auto) 5.3, Eos % (Auto) 1.0, Baso % (Auto) 0.6, Absolute Neuts (auto) 4.6, Absolute Lymphs (auto) 4.49, Nucleated RBC % 0 02/16/21 04:00: D-Dimer Quant (PE/DVT) 0.84 H* 02/16/21 04:00: Sodium 141, Potassium 3.1 L, Chloride 107, Carbon Dioxide 24.0, Anion Gap 10, BUN 4 L, Creatinine 1.02, Estim Creat Clear Calc 55.80, Est GFR (MDRD) Af Amer 74, Est GFR (MDRD) Non-Af 61, BUN/Creatinine Ratio 3.9 L, Glucose 101, Calcium 9.7, Total Bilirubin 0.20, Direct Bilirubin 0.06, AST 17, ALT 21, Alkaline Phosphatase 141 H, Troponin I High Sens 5, Total Protein 7.0, Albumin 3.3, Globulin 3.7 02/16/21 04:00: Ethyl Alcohol < 3.0 Micro: Microbiology 02/16/21 04:05 Nasal Secretion SARS-CoV-2 Antigen (Rapid) - Final Radiology Impression Brain CT 02/16/21 03:58 IMPRESSION: No acute findings in the head/brain. Electronically Signed: Zack Macedo MD at 5:06 EDT Tel , Service support , Chest X-Ray 02/16/21 03:58 IMPRESSION: No acute findings in the chest. Electronically Signed: Zack Macedo MD at 5:08 EDT Tel , Service support , Assessment & Plan Assessment/Plan (1) Chest pain: QUALIFIERS: Chest pain type: unspecified Qualified Code(s): R07.9 - Chest pain, unspecified (2) Seizure-like activity: PLAN: The patient is a 50 y/o F w/ PMHx: Anxiety and Depression/Bipolar disorder/PTSD, RLS, Tobacco use who presents to the [facility] ED on 02/16/21 with history of initially several months of intermittent chest discomfort however on day of presentation she reported concurrently lightheadedness and dizziness with near syncopal sensation prompting family to bring her to the ED and while being evaluated had onset of 2 minutes of tonic clonic appearing seizure activity. 1. Questionable new-onset seizure with history of prior seizure evaluation with diagnosis and evaluation at that time per neurology of psychosis: CT head without acute intracranial pathology. Will admit to PCU, maintain on telemetry in PCU on seizure precautions, obtain EEG, obtain brain MRI, obtain TSH, UDS. Will hold on antiepileptic drugs at this time given prior noted history but have as needed Ativan if necessary. Pending work-up including MRI and EEG may then consider neurology consultation. We will hold BuSpar given a very rare side effect can be seizure activity. 2. Chest Pain with near syncopal sensations: EKG in ED sinus rhythm with no acute evidence of ischemia, CXR w/ no acute cardiopulmonary finding, initial trop normal x1. Will place on a monitored bed to assure no acute myocardial infarction with serial cardiac enzymes and EKGs. Given presentation as noted above #1 and pending CTPA given mildly elevated D-dimer we will hold on ordering any stress testing especially given inability to discern exact story of chest discomfort with #1 presentation concurrently. Magnesium level requested. FLP in AM. ASA. 3. Hypokalemia: Admission K+ 3.1, magnesium level requested, supplementation given, repeat level in AM. 4. Elevated BP without hypertensive diagnosis: Patient with elevated BPs upon arrival, possibly associated with questionable seizure-like activity, will continue monitor and add regimen if appropriate, as needed IV hydralazine in interim. 5. Anxiety and depression/bipolar disorder/PTSD: We will continue patient home Paxil, Topamax, Trileptal with level requested. We will hold patient BuSpar given possible rare side effect of seizure activity; however, add back if seizure felt ruled out. 6. Restless leg syndrome: We will continue patient home Mirapex regimen. 7. Tobacco Abuse: Encouraged cessation, inpatient consultation per RT, NR if desired. 8. DVT prophylaxis: SCDs, Lovenox. Charges/Coding Visit Charges OBSV E&M: 10160 Initial observation care L3
[2021-02-16 05:20] LABS: Lactic Acid 1.7 mmol/L (0.4-1.9)
[2021-02-16 06:04] LABS: Amphetamine Urine VISTA NEGATIVE (<1000 ng/mL); Barbiturate Urine VISTA NEGATIVE (< 200 ng/mL); Benzodiazepine Urine VISTA NEGATIVE (< 200 ng/mL); Cocaine Urine VISTA NEGATIVE (< 300 ng/mL); Ecstacy Urine VISTA NEGATIVE (< 500 ng/mL); Methadone Urine VISTA NEGATIVE (< 300 ng/mL); PCP Urine VISTA NEGATIVE (< 25 ng/mL); THC Urine VISTA POSITIVE (< 50 ng/mL); Vista UDS pH Range 6
--- NOTE | 2021-02-16 06:42 | MRI_ITS ---
STUDY: MRI BRAIN WITHOUT CONTRAST REASON FOR EXAM: Female, 50 years old. seizure TECHNIQUE: Standardized multiplanar fat and water weighted pulse sequences were obtained. COMPARISON: CT 02/16/2021, MRI 09/03/2014 FINDINGS: Normal size of the ventricles and extra-axial spaces for the patient''s age. Normal white matter tracts of the supratentorial brain. There is no evidence for recent intracranial ischemia or other cause of cytotoxic edema on diffusion weighted imaging (DWI). Normal T2* images of the brain without demonstrated susceptibility artifact. There is no demonstrated hemosiderin stain. Normal bilateral basal ganglia. Normal thalami. There is no extra-axial fluid accumulation. Normal flow voids within the major intracranial circulation suggesting patency by spin echo criteria. Normal sella turcica, pituitary gland, infundibular stalk, optic chiasm and hypothalamus. Normal tectal plate and pineal gland. Normal midbrain, anna and medulla. Normal cerebellum. Normal basal cisterns. Normal bilateral temporal bones. Normal bilateral internal auditory canals. No demonstrated orbital abnormality, within the constraints of a routine brain study. Normal visualized paranasal sinuses. Normal calvarium and skull base. Normal visualized soft tissue structures. Normal visualized upper cervical spine. MRI/Brain without Contrast IMPRESSION: Normal unenhanced MRI of the brain. Electronically Signed: Jaspreet Gonzalez MD at 12:16 EDT Tel , Service support ,
[2021-02-16] MEDS: 0.9% Normal Saline 1,000 ML 100 ML IV ×3 (07:42→21:45)
--- NOTE | 2021-02-16 08:04 | PCS.PANDOC ---
PANDEMIC DOCUMENTATION INITIATED: Date: 12/08/2020 Time: 190
[2021-02-16 08:32] LABS: Magnesium 1.9 mg/dL (1.6-2.6); Thyroid Stim Hormone (TSH) 1.96 uIU/mL (0.358-3.74); Troponin-I HS 5 pg/mL (3.0-54.0)
--- NOTE | 2021-02-16 09:10 | TELEMED_ITS ---
[facility] has confirmed receipt of a request for visit. This document confirms receipt of the order initiating the consult. To find the results of the consultation, please view the patient's reports for the scanned Telemed Consult.
[2021-02-16] MEDS: levETIRAcetam IV 1,000 MG/100 ML BAG 400 MG IV ×2 (09:14→21:45)
[2021-02-16] MEDS: Topiramate 200 MG Tablet PO (09:25)
[2021-02-16] MEDS: Famotidine 20 MG Tablet PO ×2 (09:26→21:45)
[2021-02-16] MEDS: Enoxaparin 40 MG/0.4 ML Syringe SC (09:26)
[2021-02-16 10:28] LABS: Troponin-I HS 4 pg/mL (3.0-54.0)
[2021-02-16] MEDS: Acetaminophen 325 MG Tablet 650 MG PO ×2 (11:18→20:41)
--- NOTE | 2021-02-16 11:49 | PN.HOSP_ITS ---
Documented by User: Anny Paniagua NP, RADIATION THERAPY TECHNICIAN-C 02/16/21 12:10 Subjective Subjective Patient seen and examined. Atypical seizure activity reported by nursing this morning. Awaiting MRI, neuro consult. Denies further chest pain. Patient states she has been under increased stress recently with watching her grandsons and was also recently started on BuSpar, she is wondering if either of these could be contributing to her symptoms. Objective Data Objective Data Vital Signs: Vital Signs Temp Pulse Resp BP Pulse Ox 97.7 F L 85 18 140/101 H 100 02/16/21 08:00 02/16/21 08:00 02/16/21 08:00 02/16/21 08:00 02/16/21 08:00 Oxygen Delivery Method Room Air Weight: 169 lb 12.095 oz Body Mass Index (BMI) 30.0 Intake & Output: Intake and Output for Last 24 Hours 02/14/21 02/15/21 02/16/21 23:59 23:59 23:59 Intake Total 500 / 500 Balance 500 / 500 Lab / Micro Data Result Diagrams: 02/16/21 04:00 02/16/21 04:00 Labs: Laboratory Results - last 24 hr 02/16/21 04:00: WBC 9.8, RBC 4.43, Hgb 14.5, Hct 42.9, MCV 96.8, MCH 32.7 H, MCHC 33.8, RDW Std Deviation 51.5 H, RDW Coeff of Sade 14.2, Plt Count 283, MPV 9.2, Immature Gran % (Auto) 0.200, Neut % (Auto) 46.9 L, Lymph % (Auto) 46.0 H, [place] % (Auto) 5.3, Eos % (Auto) 1.0, Baso % (Auto) 0.6, Absolute Neuts (auto) 4.6, Absolute Lymphs (auto) 4.49, Nucleated RBC % 0 02/16/21 04:00: D-Dimer Quant (PE/DVT) 0.84 H* 02/16/21 04:00: Sodium 141, Potassium 3.1 L, Chloride 107, Carbon Dioxide 24.0, Anion Gap 10, BUN 4 L, Creatinine 1.02, Estim Creat Clear Calc 55.80, Est GFR (MDRD) Af Amer 74, Est GFR (MDRD) Non-Af 61, BUN/Creatinine Ratio 3.9 L, Glucose 101, Calcium 9.7, Total Bilirubin 0.20, Direct Bilirubin 0.06, AST 17, ALT 21, Alkaline Phosphatase 141 H, Troponin I High Sens 5, Total Protein 7.0, Albumin 3.3, Globulin 3.7 02/16/21 04:00: Ethyl Alcohol < 3.0 02/16/21 04:41: Lactic Acid 1.7 02/16/21 05:35: Urine Opiates Screen NEGATIVE, Urine Methadone Screen NEGATIVE, Ur Barbiturates Screen NEGATIVE, Ur Phencyclidine Scrn NEGATIVE, Ur Amphetamines Screen NEGATIVE, U Methamphetamin-MDMA NEGATIVE, U Benzodiazepines Scrn NEGATIVE, Urine Cocaine Screen NEGATIVE, U Cannabinoids Screen POSITIVE H, Ur Drug Screen Comment 02/16/21 07:42: Magnesium 1.9, Troponin I High Sens 5, TSH 1.96 02/16/21 09:45: Troponin I High Sens 4 Micro: Microbiology 02/16/21 04:05 Nasal Secretion SARS-CoV-2 Antigen (Rapid) - Final Radiography Diagnostic Testing: Radiology Impression Brain CT 02/16/21 03:58 IMPRESSION: No acute findings in the head/brain. Electronically Signed: Zack Macedo MD at 5:06 EDT Tel , Service support , Chest X-Ray 02/16/21 03:58 IMPRESSION: No acute findings in the chest. Electronically Signed: Zack Macedo MD at 5:08 EDT Tel , Service support , Chest CTA 02/16/21 04:43 IMPRESSION: No pulmonary embolism is identified. Motion artifact limits evaluation of the distal pulmonary arteries. Electronically Signed: Zack Macedo MD at 5:58 EDT Tel , Service support , Physical Exam Const alert, oriented x3 and no apparent distress Orientation / Consciousness: awake, oriented to person, oriented to place and oriented to time HEENT normocephalic and moist oral mucous membranes Eyes PERRL, EOMs intact bilaterally and conjunctivae normal Neck no lymphadenopathy Resp normal respiratory effort and clear to auscultation bilaterally Cardio regular rate, regular rhythm and no murmurs Peripheral Pulses: pulses 2+ throughout GI normal to inspection, nondistended, normoactive bowel sounds, non-tender and non-distended Extremity normal to inspection Skin no rashes or lesions noted Lesions: no lesions Rashes: no rashes Trauma: no lacerations or abrasions Neuro CN's II-XII intact bilaterally, no focal motor deficits, no sensory deficits noted and deep tendon reflexes 2+ bilaterally Psych mental status grossly normal and affect normal Assessment & Plan Assessment/Plan (1) Seizure-like activity: PLAN: 1. Questionable new onset seizure-MRI of brain, EEG pending. [facility] neurology consult pending. Tox screen positive for cannabinoids. Brain CT unremarkable. Seizure precautions. Patient was evaluated in 2014 for abnormal movements and at that time diagnosed with acute psychosis, she was discharged to psychiatric facility for further treatment. 2. Atypical chest pain-troponin, EKG unremarkable. CTA without PE. Will obtain echo as well due to reported presyncope. 3. Hypokalemia-replace per protocol, trend BMP. 4. Elevated blood pressure without history of hypertension-appears improved from prior, as needed hydralazine. If remains above goal, will initiate oral regimen. 5. Anxiety/depression/bipolar disorder/PTSD-on Paxil, Topamax, Trileptal. Recently started on BuSpar which is currently being held. 6. Restless leg syndrome-on Mirapex. 7. Tobacco dependence-encouraged cessation. DVT prophylaxis-Lovenox subcu This patient was seen by MIRA Pritchard under the supervision of Dr. Brown. Documented by User: Dr. Angie Brown MD 02/16/21 14:41 Objective Data Lab / Micro Data Result Diagrams: 02/16/21 04:00 02/16/21 04:00 Charges/Coding Addendum Addendum: Patient seen by Anny MEYERS under my supervision Patient seen and examined. She was admitted with a complaint of chest pain persistent shortness of breath and dizziness. In the ED, she was also noted to have a tonic-clonic seizure lasting about 2 minutes. She had recently been started on BuSpar and they were concerned that this could have caused the seizure. She has been managed for chest pain rule out ACS as well as seizure disorder Patient seen and examined this morning. While she was having EEG, patient had a witnessed tonic-clonic seizure which lasted about 2 minutes. I personally witnessed the seizures which involved her arms and her legs as well as twitching of her eyebrows. Seizures spontaneously aborted. Patient was given a loading dose of IV Keppra 1000 mg x 1. Patient had no post ictal drowsiness and was alert and able to communicate. She had no active complaints and review of sy stems otherwise negative. O/E: Const alert, oriented x3 and no apparent distress Orientation / Consciousness: awake, oriented to person, oriented to place and oriented to time HEENT normocephalic and moist oral mucous membranes Eyes PERRL, EOMs intact bilaterally and conjunctivae normal Neck no lymphadenopathy Resp normal respiratory effort and clear to auscultation bilaterally Cardio regular rate, regular rhythm and no murmurs Peripheral Pulses: pulses 2+ throughout GI normal to inspection, nondistended, normoactive bowel sounds, non-tender and non-distended Extremity normal to inspection Skin no rashes or lesions noted Lesions: no lesions Rashes: no rashes Trauma: no lacerations or abrasions Neuro CN's II-XII intact bilaterally, no focal motor deficits, no sensory deficits noted and deep tendon reflexes 2+ bilaterally Psych mental status grossly normal and affect normal Will consult [facility] neurology. Patient given a loading dose of IV Keppra 1 g. Will start on Keppra 1000 mg twice daily. Await neurology review. EEG showed evidence of primary epilepsy. SHe has been on lamictal and depakote but didnt tolerate it. Continue holding buspar and continue on Keppra. Seizure precautions. fall precautions. MRI of the brain pending. D dimer was also elevated but CTA of the chest was negative for any evidence of PE. Rest as per Anny MEYERS's note, which I have reviewed and endorsed. Visit Charges Inpatient E&M: 08316 Subs Hosp L3
--- NOTE | 2021-02-16 12:02 | ECHOD_ITS ---
Reason For Study: Syncope/Near Syncope Procedure This was a 2D Doppler, Color Flow transthoracic echocardiogram. Exam performed portable in patient room. Left Ventricle Normal LV size. Mild concentric left ventricular hypertrophy. Apical false tendon noted. Left ventricular systolic function is normal. Stage 1 diastolic dysfunction. No regional wall motion abnormalities noted. Right Ventricle Normal RV size. Normal systolic function. Atria Normal left atrium. Normal right atrium. Mitral Valve Normal mitral valve. Tricuspid Valve Normal tricuspid valve. Mild (1+) tricuspid valve insufficiency. Pulmonary artery systolic pressure is 30 mmHg. Pulmonic Valve Normal pulmonic valve. Great Vessels Normal aortic root. The pulmonary artery is normal size. Normal inferior vena cava. Pericardium/Pleural No pericardial effusion. MMode/2D Measurements & Calculations LVIDd: 4.1 cm IVSd: 1.2 cm Ao root diam: 2.8 cm LVIDs: 2.4 cm LVPWd: 1.2 cm RVDd: 2.8 cm FS: 40.5 % LAV(MOD-bp): 26.1 ml LVAd ap4: 19.2 cm2 SV(MOD-sp4): 31.6 ml LAV(MOD-bp) Indexed: 14.7 ml/m2 LVLd ap4: 6.4 cm LAV(MOD-sp2): 20.8 ml EDV(MOD-sp4): 49.1 ml LAV(MOD-sp4): 25.8 ml EDV(sp4-el): 49.1 ml LVAs ap4: 10.3 cm2 LVLs ap4: 5.1 cm ESV(MOD-sp4): 17.5 ml ESV(sp4-el): 17.6 ml EF(MOD-sp4): 64.3 % EF(sp4-el): 64.2 % SV(sp4-el): 31.5 ml LA dimension(2D): 2.9 cm LA A4 area: 12.4 cm2 RA A4 area: 9.7 cm2 Doppler Measurements & Calculations MV E max marco antonio: 58.5 cm/sec Lat Peak E' Marco Antonio: 8.3 cm/sec Med Peak E' Marco Antonio: 8.6 cm/sec MV A max macro antonio: 79.6 cm/sec E/E' lat: 7.1 E/E' med: 6.8 MV E/A: 0.73 Ao V2 max: 133.9 cm/sec LV V1 max: 111.7 cm/sec PA V2 max: 102.1 cm/sec Ao max P.2 mmHg LV V1 max P.0 mmHg Ao V2 mean: 93.5 cm/sec Ao mean P.8 mmHg Ao V2 VTI: 25.0 cm TR max marco antonio: 263.3 cm/sec TR max P.7 mmHg ECHO/Echo Complete Interpretation Summary Normal LV size. Mild concentric left ventricular hypertrophy. Left ventricular systolic function is normal. Apical false tendon noted. Stage 1 diastolic dysfunction. Pulmonary artery systolic pressure is 30 mmHg. Ordering Physician: Anny Paniagua Referring Physician: John Marcos Performed By: Nayla Pardo, VIKI, RVT
[2021-02-16] MEDS: Paroxetine 20 MG Tablet PO ×2 (12:24→21:45)
--- NOTE | 2021-02-16 15:50 | CHAPLAIN ---
Type of Pastoral Visit _x__ Initial Visit ___ Follow-up Visit ___ On-call Visit ___ General Patient Visit ___ Spiritual Assessment ___ Family Conference ___ Bereavement ___ Rapid Response ___ Code Blue ___ Other (describe below) Pastoral Care Referral From _x__ Patient ___ Family ___ Nurse ___ Physician ___ Collar Cutter ___ Commercial Real Estate Sales Manager ___ Other (describe below) Sacrament/Intervention _x__ Active listening ___ Anointing ___ Pentecostalism ___ Bereavement ___ Communion ___ Ellyn exploration ___ _x__ Life review _x__ Prayer ___ Reconciliation ___ Sacrament of Sick _x__ Supportive presence ___ Wedding ___ Other (describe below) Pastoral Comments patient gives report on her health history of recent weeks; pt is waiting for answers; pt thinks some health issues related to her mental difficulties with 'breakdown'; pt welcomes support and prayers
[2021-02-16] MEDS: Propranolol 10 MG Tablet PO (21:45)
[2021-02-16] MEDS: DiphenhydrAMINE 25 MG Capsule 50 MG PO (22:28)
[2021-02-17 03:20] VITALS: PULSE 82
[2021-02-17 04:25] VITALS: BP 104/69; PULSE 80; RESP 16; TEMP 36.5; O2SAT 99
[2021-02-17] MEDS: 0.9% Normal Saline 1,000 ML 100 ML IV (06:48)
[2021-02-17 06:55] LABS: Absolute Lymphocyte Count 3.05 X10^3/uL (0.83-4.51); Absolute Neutrophil Count 1.7 X10^3/uL (2.0-7.7); Basophil# 0.05 X10^3/uL; Eosinophil# 0.07 X10^3/uL; Eosinophils% 1.3 % (0-5); Hematocrit 38.9 % (37-47); Hemoglobin 12.5 g/dL (12.0-15.0); Lymphocyte # 3.05 X10^3/ul (0.83-4.51); Lymphocyte % 58.3 % (19-41); Mean Corp Hgb Conc 32.1 g/dL (32-36); Mean Corpuscular Hgb 32.4 pg (27.0-32.0); Mean Corpuscular Volume 100.8 fL (81-99); Mean Platelet Vol. 9.1 fl (6.2-12.0); Monocyte# 0.37 X10^3/uL; Monocyte% 7.1 % (0-10); NRBC Flagged by Analyzer 0 % (0-5); Neutrophil # 1.68 X10^3/uL (2.7-7.7); Neutrophil % 32.1 % (47-70); Platelet Count 240 K/mm3 (150-450); RBC Distribution Width CV 14.4 % (11.6-14.6); RBC Distribution Width SD 54.3 fl (35.1-43.9); Red Blood Count 3.86 M/mm3 (4.2-5.4); White Blood Count 5.2 K/mm3 (4.4-11.0)
[2021-02-17] MEDS: Acetaminophen 325 MG Tablet 650 MG PO (06:57)
[2021-02-17 07:00] VITALS: PULSE 95
[2021-02-17] MEDS: DiphenhydrAMINE 25 MG Capsule 50 MG PO (07:00)
[2021-02-17 07:21] LABS: ALB/GLOB Ratio 0.8 RATIO (0.9-2.4); AST(SGOT) 12 U/L (15-37); Alanine Aminotransfer ALT/SGPT 16 U/L (13-56); Albumin, Serum 2.7 g/dL (3.2-5.0); Alkaline Phosphatase 114 U/L (45-117); Anion Gap 10 (5-15); BUN 4 mg/dL (7-18); BUN/Creat Ratio 4.5 RATIO (10-20); Calcium,Total 8.8 mg/dL (8.5-10.1); Chloride 111 mmol/L (98-107); Cholesterol 195 mg/dL (200); EST Glomerular Filtration Rate 71 mL/min (>60); Est Glom Filt Rate - Afr Amer 86 mL/min (>60); Estimated Creatinine Clearance 63.24 ml/min; Globulin 3.3 g/dL (2.2-4.2); Glucose 94 mg/dL (74-106); High Density Lipoprotein 36 mg/dL; Potassium 3.7 mmol/L (3.5-5.1); Sodium Level 145 mmol/L (136-145); Triglycerides 414 mg/dL
--- NOTE | 2021-02-17 09:58 | PCM.DC ---
Discharge Instructions Diet Discharge Diet: Low fat / Low cholesterol Activity Discharge Activity: Return to Normal Activity and May Not Drive (Until cleared by neurology) Dressing / Incision Call your doctor if you observe: Shortness of breath, Dizziness, Chest pain and - (Recurrent seizure activity) Follow Up Care Test Results: Test results from this visit will be discussed in further detail at your follow-up appointment, if applicable. Discharge Plan Admission Admit Date/Time: 02/16/21 13:23 Primary Reason for Your Visit: New onset seizure Attending Provider: Aldo Ellison Primary Care Provider: John Marcos Discharge Orders/Prescriptions Prescriptions: New propranolol 10 mg Tablet 10 mg PO BID Qty: 60 RF: 0 levetiracetam [Keppra] 1,000 mg tablet 1,000 mg PO BID Qty: 60 RF: 0 Continued topiramate 200 MG tablet 200 mg PO BID RF: 0 paroxetine HCl [Paxil CR] 25 MG tablet extended release 24 hr 50 mg PO QHS RF: 0 polyethylene glycol 3350 17 gram/dose powder DAILY PRN PRN (Reason: Constipation) RF: 0 amantadine HCl 100 mg BID RF: 0 risperidone 1 mg Tablet 1 mg PO QHS RF: 0 clobetasol 0.05 % Solution 1 applic TOPICAL BID RF: 0 zinc oxide 1 applic BID RF: 0 Discontinued hydroxyzine pamoate [Vistaril] 50 mg Capsule 50 mg PO BID PRN (Reason: Anxiety) RF: 0 buspirone 15 mg Tablet 15 mg PO BID RF: 0 azithromycin 250 mg Tablet 250 mg PO DAILY RF: 0 Referrals / Follow Up: Counseling,Center [GROUP OF PHYSICIANS] - In 1 Week Horace Maciel MD [STAFF PHYSICIAN] - Within 2 Weeks John Marcos MD [Primary Care Provider] - In 1 Week Disposition Disposition (needs filled in before D/C Order can be placed): Home, Self Care
--- NOTE | 2021-02-17 10:10 | CASEMGMT ---
NESSA BOLES assessment: Face to Face with patient for initial transition planning/care coordination assessment. NESSA BOLES introduced self and role at [facility], pt voices understanding and consents to assessment. Pt is sitting up in bed in no distress on room air. Pt is A/Ox4 and answers all questions appropriately. Care providers, pharmacy, and demographics verified. Presentation: CP off and on for a month, also dizziness Admitting dx: Seizure, CP, syncope PCP: [facility] Specialists: [place], psych at [facility]; [facility] Preferred Pharmacy: [facility] Insurance: [facility] [employer] plan [facility] Prescription Benefit: Yes Living Will/HPOA: Pt does not have LW/HPOA but would like AD info. Pt provided with AD info. LNOK: Magda Russo, daughter Living Arrangements: Pt states lives with 22yo daughter(not listed) in 2 story apartment and states no concerns at home. Pt states is independent with ADL's. Transportation: Pt states daughter/mother drive and states no transportation concerns. DME/HHC: Pt states no current DME or need for any further DME. Pt states no hx of HHC or SNF in the past. Pt states no concerns with going home at time of discharge. Pt is on disability. Pt states smokes a pack of cigarettes daily and does not drink ETOH. Pt states no further concerns/needs. CM to follow for any further discharge planning/needs. Advised pt to ask for CM if any further questions/concerns/needs arise, voices understanding. Pt Goal: Home Plan[place] NESSA BOL[place]
--- NOTE | 2021-02-17 10:11 | DS.PCM_ITS ---
Documented by User: Anny Paniagua NP, MARKETING TRAINEE-C 02/17/21 10:19 Providers Date of Admission: 02/16/21 Date of Discharge: 02/17/21 Primary Care Physician: John Marcos MD Reason For Visit: ? SEIZZURE, CHEST PAIN, NEAR SYNCOPE Diagnosis Discharge Diagnosis (1) Seizure-like activity: Status: Acute Code(s): R56.9 - Unspecified convulsions Medications at Discharge Home Medications paroxetine HCl [Paxil CR] 50 mg PO QHS 08/08/13 topiramate 200 mg PO BID 08/08/13 polyethylene glycol 3350 DAILY PRN PRN 01/09/21 amantadine HCl 100 mg BID 02/16/21 clobetasol 1 applic TOPICAL BID 02/16/21 risperidone 1 mg PO QHS 02/16/21 zinc oxide 1 applic BID 02/16/21 levetiracetam [Keppra] 1,000 mg PO BID #60 tab 02/17/21 propranolol 10 mg PO BID #60 tab 02/17/21 Hospital Course Operations None Procedures 2-D Echocardiogram and Electroencephalogram Summary of Care Provided Minutes Spent on Discharge: 35 Hospital Course: Patient is a 50-year-old female admitted 02/16/2021 due to seizure activity. 1. New onset seizure-MRI of brain normal, EEG abnormal and consistent with primary epilepsy. [facility] neurology consulted. Tox screen positive for cannabinoids. Brain CT unremarkable. Neurology recommending Keppra 1000 mg twice daily, discontinuing BuSpar which was recently started and neurology follo w-up. No driving until cleared by neurology. 2. Atypical chest pain-troponin, EKG unremarkable. CTA without PE. Echocardiogram completed which demonstrated preserved EF, stage I diastolic dysfunction, no regional wall motion abnormalities. Patient reports tenderness under left breast which is reproducible. Musculoskeletal in nature. 3. Hypokalemia-replaced per protocol, resolved. 4. Elevated blood pressure without history of hypertension-improved without intervention. Continue outpatient monitoring. 5. Anxiety/depression/bipolar disorder/PTSD-on Paxil, Topamax, Trileptal. Recently started on BuSpar which was discontinued, spoke with prescriber at counseling center who recommended propanolol 10 mg twice daily for further anxiety treatment. Follow-up with counseling center in 1 week. 6. Restless leg syndrome-no longer on regimen. 7. Tobacco dependence-encouraged cessation. Physical Exam Const alert, oriented x3 and no apparent distress Orientation / Consciousness: awake, oriented to person, oriented to place and oriented to time HEENT normocephalic and moist oral mucous membranes Eyes PERRL, EOMs intact bilaterally and conjunctivae normal Neck no lymphadenopathy Resp normal respiratory effort and clear to auscultation bilaterally Cardio regular rate, regular rhythm and no murmurs Peripheral Pulses: pulses 2+ throughout GI normal to inspection, nondistended, normoactive bowel sounds, non-tender and non-distended Extremity normal to inspection Skin no rashes or lesions noted Lesions: no lesions Rashes: no rashes Trauma: no lacerations or abrasions Neuro CN's II-XII intact bilaterally, no focal motor deficits, no sensory deficits noted and deep tendon reflexes 2+ bilaterally Psych mental status grossly normal and affect normal Patient seen and examined prior to discharge. Physical assessment as noted above. Patient is stable for discharge with follow up recommendations as noted above. This patient was seen by MIRA Pritchard under the supervision of Dr. Ellison. Weight / BMI Weight Weight: 170 lb 3.15 oz Body Mass Index (BMI) 30.0 ABG / Lab / Microbiology Data Result Diagrams: 02/17/21 06:32 02/17/21 06:32 Laboratory: Laboratory Results - last 24 hr 02/16/21 09:45: Troponin I High Sens 4 02/17/21 06:32: WBC 5.2, RBC 3.86 L, Hgb 12.5, Hct 38.9, MCV 100.8 H, MCH 32.4 H , MCHC 32.1 D, RDW Std Deviation 54.3 H, RDW Coeff of Sade 14.4, Plt Count 240, MPV 9.1, Immature Gran % (Auto) 0.200, Neut % (Auto) 32.1 L, Lymph % (Auto) 58.3 H, [place] % (Auto) 7.1, Eos % (Auto) 1.3, Baso % (Auto) 1.0, Absolute Neuts (auto) 1.7 L, Absolute Lymphs (auto) 3.05, Nucleated RBC % 0 02/17/21 06:32: Sodium 145, Potassium 3.7, Chloride 111 H, Carbon Dioxide 24.0, Anion Gap 10, BUN 4 L, Creatinine 0.90, Estim Creat Clear Calc 63.24, Est GFR (MDRD) Af Amer 86, Est GFR (MDRD) Non-Af 71, BUN/Creatinine Ratio 4.5 L, Glucose 94, Calcium 8.8, Total Bilirubin 0.10 L, AST 12 L, ALT 16, Alkaline Phosphatase 114, Total Protein 6.0 L, Albumin 2.7 L, Globulin 3.3, Albumin/Globulin Ratio 0.8 L, Triglycerides 414 H, Cholesterol 195, LDL Cholesterol TNP, VLDL Cholesterol TNP, HDL Cholesterol 36 L Microbiology: Microbiology 02/16/21 04:05 Nasal Secretion SARS-CoV-2 Antigen (Rapid) - Final Radiography Diagnostic Testing: Radiology Impression Brain MRI 02/16/21 06:42 IMPRESSION: Normal unenhanced MRI of the brain. Electronically Signed: Jaspreet Gonzalez MD at 12:16 EDT Tel , Service support , Echocardiogram 02/16/21 12:02 Interpretation Summary Normal LV size. Mild concentric left ventricular hypertrophy. Left ventricular systolic function is normal. Apical false tendon noted. Stage 1 diastolic dysfunction. Pulmonary artery systolic pressure is 30 mmHg. Ordering Physician: Anny Paniagua Referring Physician: John Marcos Performed By: Nayla Pardo, VIKI, RVT D/C Instructions Discharge Diet: Low fat / Low cholesterol Call your doctor if you observe: Shortness of breath, Dizziness, Chest pain and - (Recurrent seizure activity) Meaningful Use Info Meaningful Use Diagnoses (Choose all that apply): None applicable Discharge Plan Admission Admit Date/Time: 02/16/21 13:23 Primary Reason for Your Visit: New onset seizure Attending Provider: Aldo Ellison Primary Care Provider: John Marcos Discharge Orders/Prescriptions Prescriptions: New propranolol 10 mg Tablet 10 mg PO BID Qty: 60 RF: 0 levetiracetam [Keppra] 1,000 mg tablet 1,000 mg PO BID Qty: 60 RF: 0 Continued topiramate 200 MG tablet 200 mg PO BID RF: 0 paroxetine HCl [Paxil CR] 25 MG tablet extended release 24 hr 50 mg PO QHS RF: 0 polyethylene glycol 3350 17 gram/dose powder DAILY PRN PRN (Reason: Constipation) RF: 0 amantadine HCl 100 mg BID RF: 0 risperidone 1 mg Tablet 1 mg PO QHS RF: 0 clobetasol 0.05 % Solution 1 applic TOPICAL BID RF: 0 zinc oxide 1 applic BID RF: 0 Discontinued hydroxyzine pamoate [Vistaril] 50 mg Capsule 50 mg PO BID PRN (Reason: Anxiety) RF: 0 buspirone 15 mg Tablet 15 mg PO BID RF: 0 azithromycin 250 mg Tablet 250 mg PO DAILY RF: 0 Referrals / Follow Up: Counseling,Center [GROUP OF PHYSICIANS] - In 1 Week Horace Maciel MD [STAFF PHYSICIAN] - Within 2 Weeks John Marcos MD [Primary Care Provider] - 02/20/21 4:40 pm Disposition Disposition (needs filled in before D/C Order can be placed): Home, Self Care Documented by User: Dr. Aldo Ellison DO 02/17/21 20:01 Providers Date of Admission: 02/16/21 Reason For Visit: ? SEIZZURE, CHEST PAIN, NEAR SYNCOPE Medications at Discharge Home Medications paroxetine HCl [Paxil CR] 50 mg PO QHS 08/08/13 topiramate 200 mg PO BID 08/08/13 polyethylene glycol 3350 DAILY PRN PRN 01/09/21 amantadine HCl 100 mg BID 02/16/21 clobetasol 1 applic TOPICAL BID 02/16/21 risperidone 1 mg PO QHS 02/16/21 zinc oxide 1 applic BID 02/16/21 levetiracetam [Keppra] 1,000 mg PO BID #60 tab 02/17/21 propranolol 10 mg PO BID #60 tab 02/17/21 ABG / Lab / Microbiology Data Result Diagrams: 02/17/21 06:32 02/17/21 06:32 Discharge Plan Admission Admit Date/Time: 02/16/21 13:23 Primary Reason for Your Visit: New onset seizure Attending Provider: Aldo Ellison Primary Care Provider: John Marcos Discharge Orders/Prescriptions Prescriptions: New propranolol 10 mg Tablet 10 mg PO BID Qty: 60 RF: 0 levetiracetam [Keppra] 1,000 mg tablet 1,000 mg PO BID Qty: 60 RF: 0 Continued topiramate 200 MG tablet 200 mg PO BID RF: 0 paroxetine HCl [Paxil CR] 25 MG tablet extended release 24 hr 50 mg PO QHS RF: 0 polyethylene glycol 3350 17 gram/dose powder DAILY PRN PRN (Reason: Constipation) RF: 0 amantadine HCl 100 mg BID RF: 0 risperidone 1 mg Tablet 1 mg PO QHS RF: 0 clobetasol 0.05 % Solution 1 applic TOPICAL BID RF: 0 zinc oxide 1 applic BID RF: 0 Discontinued hydroxyzine pamoate [Vistaril] 50 mg Capsule 50 mg PO BID PRN (Reason: Anxiety) RF: 0 buspirone 15 mg Tablet 15 mg PO BID RF: 0 azithromycin 250 mg Tablet 250 mg PO DAILY RF: 0 Referrals / Follow Up: Counseling,Center [GROUP OF PHYSICIANS] - In 1 Week Horace Maciel MD [STAFF PHYSICIAN] - Within 2 Weeks John Marcos MD [Primary Care Provider] - 02/20/21 4:40 pm Disposition Disposition (needs filled in before D/C Order can be placed): Home, Self Care Charges/Coding Addendum Addendum: Patient was seen and examined today, her MRI of her brain did not show any evidence of stroke. On examination she appeared in good health and spirits, she does not appear to be in any distress. Vital signs as documented. Skin warm and dry and without overt rashes. Neck without JVD, thyroid appears normal, trachea is midline, neck is supple. Lungs clear, normal air movement was noted. Heart exam notable for regular rhythm, normal sounds and absence of murmurs, rubs or gallops. Abdomen unremarkable and without evidence of organomegaly, masses, or abdominal aortic enlargement, bowel sounds are present in all 4 quadrants, no abdominal tenderness was noted. Extremities nonedematous, no cyanosis was noted, no clubbing was noted. Neuro: Cranial nerves II through XII are grossly intact, no focal motor deficits were noted, sensation to light touch and pinprick is intact, motor exam 5/5 throughout. Psych: Patient is alert and oriented x3, she does not appear anxious or depressed, she does not appear agitated. Patient appears stable for discharge at this time, I have reviewed Anny Paniagua's discharge summary including her medical assessment and plan of care and endorse it. Visit Charges Inpatient E&M: 68889 Disch Hosp
[2021-02-17 10:20] VITALS: BP 141/111; PULSE 101; RESP 18; TEMP 36.6; O2SAT 98
[2021-02-17] MEDS: Propranolol 10 MG Tablet PO (10:26)
[2021-02-17] MEDS: Famotidine 20 MG Tablet PO (10:26)
[2021-02-17] MEDS: Paroxetine 20 MG Tablet PO (10:27)
[2021-02-17] MEDS: Topiramate 200 MG Tablet PO (10:27)
[2021-02-17] MEDS: Enoxaparin 40 MG/0.4 ML Syringe SC (10:29)
[2021-02-17] MEDS: levETIRAcetam IV 1,000 MG/100 ML BAG 400 MG IV (10:34)
[2021-02-17 10:42] VITALS: BP 141/111; PULSE 101; RESP 18; TEMP 36.6; O2SAT 98
--- NOTE | 2021-02-17 11:11 | PHA.DC.MC ---
Pharmacy Service has performed discharge medication reconciliation and counseling for this patient. 1. LEVETIRACETAM 1000MG PO BID 2. PROPRANOLOL 10MG PO BID The patient's discharge medication list was reviewed for discrepancies and discrepancies were resolved. Home Medications paroxetine HCl [Paxil CR] 50 mg PO QHS 08/08/13 topiramate 200 mg PO BID 08/08/13 polyethylene glycol 3350 DAILY PRN PRN 01/09/21 amantadine HCl 100 mg BID 02/16/21 clobetasol 1 applic TOPICAL BID 02/16/21 risperidone 1 mg PO QHS 02/16/21 zinc oxide 1 applic BID 02/16/21 levetiracetam [Keppra] 1,000 mg PO BID #60 tab 02/17/21 propranolol 10 mg PO BID #60 tab 02/17/21 The patient was counseled on the following discharge medications and changes in medications for homegoing were reviewed. The Reason for Use, instructions for use, and potential side effects were reviewed for all new medications. The patient's questions regarding all of their medications were answered. The patient was able to verbally demonstrate an understanding of their discharge medications.
--- NOTE | 2021-02-18 14:56 | CASEMGMT ---
NESSA BOLES Discharge Follow-Up Phone Call. Tricia: 11 Strata: 3 Discharge Date: 02/17/21 Adm Dx: Seizure, CP, near syncope Call to pt to inquire about how she has been doing since being discharged from the hospital. Pt states she has been doing okay. She states she has been tired/exhausted since returning home and has been resting a lot. She states she received her new medications prior to be discharged and is taking her medications as prescribed. She denies having any questions about the discharge instructions or any of the medications. She states her daughter has been w/her since returning home but will be leaving tonight and returning home tomorrow. Pt voices concerns w/being home alone. She states she does not need assistance w/getting up or w/personal care, it just helps her feel better to have someone w/her. NESSA BOLES inquired of pt if there were options for someone else to stay w/her. She stated no. She states she has not spoken w/her daughter about her concerns yet. NESSA BOLES encouraged her to talk w/her daughter and also recommended she have arrangements made for someone to call her or check on her if able. Pt states she thinks this will help her feel better and states she will do this. She denies having any other concerns, questions, or needs. Dia GALLEGOS RN, CM
== END 2021-02-17 11:52 | disposition home or self-care (01) | DRG 53 ==
LOC: ED 05:35 → PCU 05:53
PROVIDERS: Admitting Provider Family Medicine; Emergency Provider Emergency Medicine; PCP Family Medicine; Visit Provider Internal Medicine
DX: G40.309 Generalized idiopathic epilepsy and epileptic syndromes, not intractable, without status epilepticus (principal); R07.89 Other chest pain; R03.0 Elevated blood-pressure reading, without diagnosis of hypertension; E87.6 Hypokalemia; G25.81 Restless legs syndrome; F31.9 Bipolar disorder, unspecified; F43.10 Post-traumatic stress disorder, unspecified; F41.9 Anxiety disorder, unspecified; F17.210 Nicotine dependence, cigarettes, uncomplicated; Z79.899 Other long term (current) drug therapy
CPT/HCPCS: 36415; 70450; 70551; 71045; 71275; 80048; 80053; 80061; 80076; 80307; 82077; 83605; 83735; 84443; 84484; 85025; 85379; 87040; 87426; 93005; 93306; 95819; 97802; 99251; 99285; 99406; J7030; Q9957; Q9967; A4216; G0463; J3490

== ENCOUNTER 2021-02-20 11:00 | Emergency (ER) | payer MEDICAID, SELFPAY ==
[2021-02-20 11:01] VITALS: BP 108/78; PULSE 79; RESP 18; TEMP 36.7; O2SAT 99; BMI 31.0
--- NOTE | 2021-02-20 11:11 | ED.RN ---
pt with seizure lasting approx 20 sec. moving arms and legs and shaking head rhythmically. pt now postictal.
[2021-02-20] MEDS: LORazepam 2 MG/ML Syringe 1 MG IV (11:28)
[2021-02-20 11:51] LABS: Absolute Lymphocyte Count 2.85 X10^3/uL (0.83-4.51); Absolute Neutrophil Count 3.4 X10^3/uL (2.0-7.7); Basophil# 0.04 X10^3/uL; Basophil% 0.6 % (0-1); Eosinophil# 0.08 X10^3/uL; Eosinophils% 1.2 % (0-5); Hematocrit 46.3 % (37-47); Hemoglobin 14.9 g/dL (12.0-15.0); Lymphocyte # 2.85 X10^3/ul (0.83-4.51); Lymphocyte % 41.9 % (19-41); Mean Corp Hgb Conc 32.2 g/dL (32-36); Mean Corpuscular Hgb 32.3 pg (27.0-32.0); Mean Corpuscular Volume 100.2 fL (81-99); Mean Platelet Vol. 9.3 fl (6.2-12.0); Monocyte# 0.45 X10^3/uL; Monocyte% 6.6 % (0-10); NRBC Flagged by Analyzer 0 % (0-5); Neutrophil # 3.36 X10^3/uL (2.7-7.7); Neutrophil % 49.4 % (47-70); Platelet Count 294 K/mm3 (150-450); RBC Distribution Width CV 14.5 % (11.6-14.6); RBC Distribution Width SD 53.3 fl (35.1-43.9); Red Blood Count 4.62 M/mm3 (4.2-5.4); White Blood Count 6.8 K/mm3 (4.4-11.0)
[2021-02-20 12:02] LABS: ALB/GLOB Ratio 0.8 RATIO (0.9-2.4); AST(SGOT) 26 U/L (15-37); Alanine Aminotransfer ALT/SGPT 25 U/L (13-56); Albumin, Serum 3.3 g/dL (3.2-5.0); Alkaline Phosphatase 138 U/L (45-117); Anion Gap 5 (5-15); BUN 6 mg/dL (7-18); BUN/Creat Ratio 5.7 RATIO (10-20); Calcium,Total 9.5 mg/dL (8.5-10.1); Chloride 109 mmol/L (98-107); Creatinine, Serum 1.05 mg/dL (0.55-1.02); EST Glomerular Filtration Rate 59 mL/min (>60); Est Glom Filt Rate - Afr Amer 72 mL/min (>60); Glucose 94 mg/dL (74-106); Potassium 3.9 mmol/L (3.5-5.1); Protein, Total 7.3 g/dL (6.4-8.2); Sodium Level 140 mmol/L (136-145)
[2021-02-20 13:08] VITALS: BP 111/75; PULSE 89; RESP 16; O2SAT 99
--- NOTE | 2021-02-20 14:39 | EX.ED.DYSGE1 ---
HPI History of Present Illness Chief Complaint: Seizure Informant: patient Onset/Context/Timing Onset: Today Timing: Intermittent and Lasts (1 to 2 minutes) Quality: Shaking Location: Generalized Narrative Narrative: Patient presents with a seizure that occurred today. Patient has a history of seizures. Patient takes Keppra for her seizure. Family states that she felt like she was going to pass out and grabbed onto her. She lowered the patient to the floor. Patient denies biting her tongue. Patient denies any urinary or stool incontinence. Patient admits to subjective chills but denies any fevers. Patient admits to nausea but denies any vomiting. Patient admits to a mild headache and back pain. Patient states nothing makes her seizures better or worse. PFSH PFSH Medical History Anxiety Bipolar 1 disorder Carotid artery stenosis Current use of proton pump inhibitor Dystonic movements GERD (gastroesophageal reflux disease) Hyperlipemia Major depressive disorder Marijuana abuse Migraine PTSD (post-traumatic stress disorder) Restless leg syndrome Right shoulder pain Tobacco use Home Medications paroxetine HCl [Paxil CR] 50 mg PO BID 08/08/13 [History Last Taken 09/02/14] topiramate 200 mg PO BID 08/08/13 [History Last Taken 09/02/14] polyethylene glycol 3350 17 g PO DAILY PRN PRN 01/09/21 [History Last Taken Unknown] risperidone 1 mg PO QHS 02/16/21 [History Last Taken Unknown] amantadine HCl 100 mg PO BID 02/20/21 [History Last Taken Unknown] ammonium lactate 1 applic TOPICAL DAILY PRN PRN 02/20/21 [History Last Taken Unknown] bupropion HCl 150 mg PO DAILY 02/20/21 [History Last Taken Unknown] hydroxyzine HCl 25 mg PO Q6H PRN PRN 02/20/21 [History Last Taken Unknown] mupirocin 1 applic TOPICAL TID 02/20/21 [History Last Taken Unknown] propranolol 10 mg PO DAILY 02/20/21 [History Last Taken Unknown] Allergy/AdvReac Type Severity Reaction Status Date / Time lamotrigine [From Lamictal] Allergy Hives Verified 02/20/21 11:08 sulfamethoxazole Allergy Swelling Verified 02/20/21 11:08 [From Bactrim] trimethoprim [From Bactrim] Allergy Swelling Verified 02/20/21 11:08 clindamycin HCl AdvReac Nausea/Vom/ Verified 02/20/21 11:08 [From Cleocin] Diarrhea clindamycin palmitate HCl AdvReac Nausea/Vom/ Verified 02/20/21 11:08 [From Cleocin] Diarrhea clindamycin phosphate AdvReac Nausea/Vom/ Verified 02/20/21 11:08 [From Cleocin] Diarrhea Family History (Updated 02/16/21 @ 04:[address] Lorena Finch MD) Mother Diabetes Hypertension Rheumatoid arthritis Father Cancer Surgical History S/P hysterectomy S/P tonsillectomy and adenoidectomy Social History household members: family Smoking Status: Current every day smoker tobacco type: cigarettes alcohol intake: never substance use type: does not use ROS ROS ED Constitutional Constitutional ED: Reports chills and subjective; Denies fever(s) Eyes Eyes: Denies blurry vision or change in vision ENT ENT ED: Denies rhinorrhea or sore throat Cardiovascular Cardiovascular: Denies chest pain or palpitations Respiratory/Chest Respiratory/Chest: Denies cough or dyspnea Gastrointestinal Gastrointestinal: Reports nausea; Denies vomiting Genitourinary Genitourinary ED: Denies dysuria or hematuria Musculoskeletal Musculoskeletal: Reports back pain; Denies neck pain Integumentary Denies abscess or rash Neurologic Neurologic: Reports headache(s); Denies weakness Allergic/Immunologic Allergic/Immunologic ED: Denies mouth swelling or urticaria EXAM Physical Exam Const Vital Signs: 02/20/21 11:01 02/20/21 13:08 Temperature 98.1 F Temperature Source Oral Pulse Rate 79 89 Respiratory Rate 18 16 Blood Pressure 108/78 111/75 Blood Pressure Mean 88 87 Pulse Ox 99 99 Oxygen Delivery Method Room Air Room Air Positive well nourished and well developed General Appearance ED: well developed HEENT Reports moist mucous membranes Neck supple and no JVD Resp normal respiratory effort and clear to auscultation bilaterally Cardio regular rate, regular rhythm and no murmurs GI normal to inspection, nondistended, normoactive bowel sounds and non-tender Palpation: soft Extremity normal to inspection General Extremety ED: Negative for edema or tenderness General Extremity: Negative for edema Neuro oriented x3, CN's II-XII intact bilaterally and no sensory deficits noted Sensorium / Orientation: alert Motor Exam: strength 5/5 throughout Psych mental status grossly normal Skin no rashes or lesions noted MDM MDM MDM Narrative Medical decision making narrative: Patient had a seizure when I was in the room. Patient had some shaking. Patient closed her eyes. Patient was given a dose of Ativan. Patient woke up immediately and started talking. Patient was A&O x3 when she woke up from the seizure. CBC and comprehensive metabolic profile were obtained and were essentially within normal limits. Patient was advised of her findings. Patient was instructed continue taking her Keppra as prescribed. Patient was instructed to follow-up with her primary care physician and neurologist in 3 to 5 days. Patient and family understood and were agreeable with the plan. All questions were answered. Lab Data Attestation: I reviewed the patient's lab results. Labs: Laboratory Results - last 24 hr 02/20/21 02/20/21 11:05 11:05 WBC 6.8 RBC 4.62 Hgb 14.9 Hct 46.3 MCV 100.2 H MCH 32.3 H MCHC 32.2 RDW Std Deviation 53.3 H RDW Coeff of Sade 14.5 Plt Count 294 MPV 9.3 Immature Gran % (Auto) 0.300 Neut % (Auto) 49.4 Lymph % (Auto) 41.9 H Posey % (Auto) 6.6 Eos % (Auto) 1.2 Baso % (Auto) 0.6 Absolute Neuts (auto) 3.4 Absolute Lymphs (auto) 2.85 Nucleated RBC % 0 Sodium 140 Potassium 3.9 Chloride 109 H Carbon Dioxide 26.0 Anion Gap 5 BUN 6 L Creatinine 1.05 H Estim Creat Clear Calc 54.20 Est GFR (MDRD) Af Amer 72 Est GFR (MDRD) Non-Af 59 L BUN/Creatinine Ratio 5.7 L Glucose 94 Calcium 9.5 Total Bilirubin 0.20 AST 26 ALT 25 Alkaline Phosphatase 138 H Total Protein 7.3 Albumin 3.3 Globulin 4.0 Albumin/Globulin Ratio 0.8 L Discharge Plan Triage Chief Complaint: Seizure ED Provider: Yair Landin Dx/Rx/DC Orders Clinical Impression: Seizure-like activity Instructions: ED Seizure, Recurrent (Adult) Prescriptions: No Action topiramate 200 MG tablet 200 mg PO BID RF: 0 paroxetine HCl [Paxil CR] 25 MG tablet extended release 24 hr 50 mg PO BID RF: 0 polyethylene glycol 3350 17 gram/dose powder 17 g PO DAILY PRN PRN (Reason: Constipation) RF: 0 risperidone 1 mg Tablet 1 mg PO QHS RF: 0 amantadine HCl 100 mg Tablet 100 mg PO BID RF: 0 ammonium lactate 12 % Lotion 1 applic TOPICAL DAILY PRN PRN (Reason: Skin Cleansing) RF: 0 hydroxyzine HCl 25 mg Tablet 25 mg PO Q6H PRN PRN (Reason: Itching) RF: 0 mupirocin 2 % Ointment 1 applic TOPICAL TID RF: 0 bupropion HCl 150 mg Tablet Extended Release 24 Hr 150 mg PO DAILY RF: 0 propranolol 10 mg tablet 10 mg PO DAILY RF: 0 Primary Care Provider: John Marcos Referrals: John Marcos MD [Primary Care Provider] - 3-5 Days Disposition Disposition: Home, Self Care
[2021-02-20 14:57] VITALS: PULSE 86; RESP 16; O2SAT 98
== END 2021-02-20 15:02 | disposition home or self-care (01) ==
PROVIDERS: Emergency Provider Emergency Medicine; PCP Family Medicine
DX: G40.909 Epilepsy, unspecified, not intractable, without status epilepticus (principal); K21.9 Gastro-esophageal reflux disease without esophagitis; F31.9 Bipolar disorder, unspecified; F41.9 Anxiety disorder, unspecified; F17.210 Nicotine dependence, cigarettes, uncomplicated; Z79.899 Other long term (current) drug therapy
CPT/HCPCS: 80053; 85025; 96374; 99285; A4216

== ENCOUNTER 2021-02-26 14:30 | Emergency (ER) | payer MEDICAID, SELFPAY ==
[2021-02-26 14:31] VITALS: BP 109/83; PULSE 90; RESP 18; TEMP 36.6; O2SAT 98; BMI 29.7
--- NOTE | 2021-02-26 15:23 | CT_ITS ---
STUDY: CT MAXILLOFACIAL SINUSES REASON FOR EXAM: Female, 50 years old. sinus pain / pressure RADIATION DOSAGE (If Supplied By Facility): CTDIvol = ( 33.06 ) mGy, DLP = ( 730.55 ) mGycm TECHNIQUE: The patient was scanned in a multi detector CT scanner. High resolution axial imaging was performed without the administration of intravenous contrast material. Sagittal and coronal images were reconstructed. Individualized dose optimization techniques were used for this CT. COMPARISON: None. FINDINGS: FRONTAL SINUSES: Normal aeration, without mucosal inflammatory disease. ETHMOIDAL SINUSES: Normal aeration, without mucosal inflammatory disease. MAXILLARY SINUSES: Mild mucosal thickening of the inferior left maxillary sinus without focal mass or air-fluid level. SPHENOIDAL SINUSES: Normal aeration, without mucosal inflammatory disease. There is patency of the bilateral maxillary infundibuli with normal uncinate processes, ethmoid bullae, and hiatus semilunaris. Normal bilateral middle turbinates. Normal bilateral inferior turbinates. Normal midline nasal septum. There is patency of the bilateral nasal airways. The visualized osseous structures are normal. The visualized bilateral orbital contents are normal. CT/Sinus/Facial Bone IMPRESSION: Mild left maxillary chronic sinusitis. No air-fluid levels focal mass or osseous destruction. Electronically Signed: Arun Lino MD ([place]) at 16:30 EDT , Service support ,
--- NOTE | 2021-02-26 15:35 | EDS_ITS ---
HPI History of Present Illness Chief Complaint: Headache Narrative Narrative: Patient is a 50-year-old female with history of headache who states she has been having persistent congestion drainage and headache for multiple months. She states she was recently in the hospital and had imaging studies done which showed no obvious cause. She states that she cannot get relief from her sinus pressure/headache and congestion and secondary to his returns for repeat evaluation. She denies any fevers chills or trauma prior to the headache beginning she denies any blood thinner use. PFSH PFSH Medical History Anxiety Bipolar 1 disorder Carotid artery stenosis Current use of proton pump inhibitor Dystonic movements GERD (gastroesophageal reflux disease) Hyperlipemia Major depressive disorder Marijuana abuse Migraine PTSD (post-traumatic stress disorder) Restless leg syndrome Right shoulder pain Tobacco use Home Medications paroxetine HCl [Paxil CR] 50 mg PO BID 08/08/13 [History Last Taken 09/02/14] topiramate 200 mg PO BID 08/08/13 [History Last Taken 09/02/14] polyethylene glycol 3350 17 g PO DAILY PRN PRN 01/09/21 [History Last Taken Unknown] risperidone 1 mg PO QHS 02/16/21 [History Last Taken Unknown] amantadine HCl 100 mg PO BID 02/20/21 [History Last Taken Unknown] ammonium lactate 1 applic TOPICAL DAILY PRN PRN 02/20/21 [History Last Taken Unknown] bupropion HCl 150 mg PO DAILY 02/20/21 [History Last Taken Unknown] hydroxyzine HCl 25 mg PO Q6H PRN PRN 02/20/21 [History Last Taken Unknown] mupirocin 1 applic TOPICAL TID 02/20/21 [History Last Taken Unknown] propranolol 10 mg PO DAILY 02/20/21 [History Last Taken Unknown] azelastine 2 spray INTRANASAL BID #30 ml 02/26/21 [Rx Last Taken Unknown] prednisone 40 mg PO DAILY #10 tab 02/26/21 [Rx Last Taken Unknown] Allergy/AdvReac Type Severity Reaction Status Date / Time lamotrigine [From Lamictal] Allergy Hives Verified 02/26/21 14:33 sulfamethoxazole Allergy Swelling Verified 02/26/21 14:33 [From Bactrim] trimethoprim [From Bactrim] Allergy Swelling Verified 02/26/21 14:33 clindamycin HCl AdvReac Nausea/Vom/ Verified 02/26/21 14:33 [From Cleocin] Diarrhea clindamycin palmitate HCl AdvReac Nausea/Vom/ Verified 02/26/21 14:33 [From Cleocin] Diarrhea clindamycin phosphate AdvReac Nausea/Vom/ Verified 02/26/21 14:33 [From Cleocin] Diarrhea Family History (Updated 02/16/21 @ 04:[address] Lorena Finch MD) Mother Diabetes Hypertension Rheumatoid arthritis Father Cancer Surgical History S/P hysterectomy S/P tonsillectomy and adenoidectomy Social History household members: family Smoking Status: Current every day smoker tobacco type: cigarettes alcohol intake: never substance use type: does not use ROS ROS ED Constitutional Constitutional ED: Denies chills or fever(s) ENT ENT ED: Denies sore throat Cardiovascular Cardiovascular: Denies chest pain Respiratory/Chest Respiratory/Chest: Denies cough or dyspnea Gastrointestinal Gastrointestinal: Denies abdominal pain, diarrhea, nausea or vomiting Genitourinary Genitourinary ED: Denies dysuria Musculoskeletal Musculoskeletal: Reports myalgias Integumentary Reports rash Neurologic Neurologic: Reports headache(s) Hematologic/Lymphatic Hematologic/Lymphatic: Denies easy bleeding or easy bruising EXAM Physical Exam Const Vital Signs: 02/26/21 14:31 Temperature 97.9 F Temperature Source Temporal Pulse Rate 90 Respiratory Rate 18 Blood Pressure 109/83 H Blood Pressure Mean 91 Pulse Ox 98 Oxygen Delivery Method Room Air Positive well nourished and well developed General Appearance ED: well developed HEENT HEENT Narrative: Nasal mucosa is hyperemic and boggy with enlarged inferior nasal turbinates. There is pain on palpation diffusely across the frontal ethmoid and maxillary sinuses Eyes PERRL and EOMs intact bilaterally Neck supple Neck Narrative: No meningeal signs Resp normal respiratory effort and clear to auscultation bilaterally Cardio regular rate and regular rhythm GI normal to inspection, nondistended, normoactive bowel sounds, non-tender, non- distended and no masses Auscultation: normoactive bowel sounds Palpation: soft Extremity normal to inspection Neuro oriented x3 and CN's II-XII intact bilaterally Neuro Narrative: Cranial nerves II through XII are grossly intact there are no focal neurologic deficits. No pronator drift no dysmetria no truncal ataxia Sensorium / Orientation: alert Motor Exam: strength 5/5 throughout Psych Psych Narrative: Patient has a nervous/anxious affect Mood & Affect: anxious Skin skin turgor normal MDM MDM MDM Narrative Medical decision making narrative: Patient presented to the ER with stable vitals and a normal neurologic exam. Chart review reveals she has had a head CT and MRI in the past 7 to 10 days which have been normal. Therefore at this time I felt only need for symptomatic treatment with a CT of her sinuses to see if there is any changes that were missed on those previous images as they were of her brain. CT of the sinuses revealed no acute finding. On reevaluation she moderate improvement of her symptoms with steroids Benadryl Toradol and Reglan and her neuro exam remains normal and therefore she will be discharged home with symptomatic care to help control her congestion and headache Radiography Diagnostic Testing: Clinical Impression(s) from Imaging Studies Facial/Sinus 02/26/21 15:23 IMPRESSION: Mild left maxillary chronic sinusitis. No air-fluid levels focal mass or osseous destruction. Electronically Signed: Arun Lino MD ([place]) at 16:30 EDT , Service support , Discharge Plan Triage Chief Complaint: Headache ED Provider: Puneet Castillo Dx/Rx/DC Orders Clinical Impression: Cephalgia, Chronic maxillary sinusitis Instructions: Chronic Sinusitis Prescriptions: New prednisone 20 mg tablet 40 mg PO DAILY Qty: 10 RF: 0 azelastine 137 mcg (0.1 %) aerosol,spray 2 spray intranasal BID Qty: 30 RF: 0 No Action topiramate 200 MG tablet 200 mg PO BID RF: 0 paroxetine HCl [Paxil CR] 25 MG tablet extended release 24 hr 50 mg PO BID RF: 0 polyethylene glycol 3350 17 gram/dose powder 17 g PO DAILY PRN PRN (Reason: Constipation) RF: 0 risperidone 1 mg Tablet 1 mg PO QHS RF: 0 amantadine HCl 100 mg Tablet 100 mg PO BID RF: 0 ammonium lactate 12 % Lotion 1 applic TOPICAL DAILY PRN PRN (Reason: Skin Cleansing) RF: 0 hydroxyzine HCl 25 mg Tablet 25 mg PO Q6H PRN PRN (Reason: Itching) RF: 0 mupirocin 2 % Ointment 1 applic TOPICAL TID RF: 0 bupropion HCl 150 mg Tablet Extended Release 24 Hr 150 mg PO DAILY RF: 0 propranolol 10 mg tablet 10 mg PO DAILY RF: 0 Primary Care Provider: John Marcos Referrals: John Marcos MD [Primary Care Provider] - Disposition Disposition: Home, Self Care
[2021-02-26] MEDS: dexAMETHasone 10 MG/ML Vial IV (15:42)
[2021-02-26] MEDS: DiphenhydrAMINE 50 MG/ML Syringe IV (15:43)
[2021-02-26] MEDS: Ketorolac 30 MG/ML Syringe IV (15:44)
[2021-02-26] MEDS: Metoclopramide 10 MG/2 ML Vial IV (15:46)
[2021-02-26 17:00] VITALS: PULSE 78; RESP 12; O2SAT 98
== END 2021-02-26 17:01 | disposition home or self-care (01) ==
PROVIDERS: Emergency Provider Emergency Medicine; PCP Family Medicine
DX: R51.9 Headache, unspecified (principal); J32.0 Chronic maxillary sinusitis; F31.9 Bipolar disorder, unspecified; F41.9 Anxiety disorder, unspecified; F17.210 Nicotine dependence, cigarettes, uncomplicated; Z79.899 Other long term (current) drug therapy
CPT/HCPCS: 70486; 96374; 96375; 99283; A4216

== ENCOUNTER 2021-03-02 18:58 | Emergency (ER) | payer MEDICAID, SELFPAY ==
[2021-03-02 19:01] VITALS: BP 123/100; PULSE 103; RESP 18; TEMP 36.1; O2SAT 97; BMI 30.1
[2021-03-02 22:00] VITALS: RESP 16
--- NOTE | 2021-03-02 22:38 | EKG12_ITS ---
Test Reason : ABD PAIN Blood Pressure : / mmHG Vent. Rate : 071 BPM Atrial Rate : 071 BPM P-R Int : 128 ms QRS Dur : 084 ms QT Int : 376 ms P-R-T Axes : 036 034 046 degrees QTc Int : 408 ms Normal sinus rhythm Poor R wave progression Confirmed by CJ MORGAN, SAMREEN ([id number]), slot editor QUIQUE CABRERA ([id number]) on 03/04/2021 9:27:26 AM Referred By: MARK Confirmed By:SAMREEN CORONA MD
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
[2021-03-02 23:21] LABS: Internal QC Validated? YES +Cl - CLEAR BKGD; Pregnancy, Serum, hCG Quali. NEGATIVE Negative
[2021-03-02 23:29] LABS: Absolute Lymphocyte Count 5.84 X10^3/uL (0.83-4.51); Absolute Neutrophil Count 8.4 X10^3/uL (2.0-7.7); Basophil# 0.04 X10^3/uL; Basophil% 0.3 % (0-1); Eosinophil# 0.08 X10^3/uL; Eosinophils% 0.5 % (0-5); Hematocrit 43.1 % (37-47); Hemoglobin 14.7 g/dL (12.0-15.0); Lymphocyte # 5.84 X10^3/ul (0.83-4.51); Lymphocyte % 38.2 % (19-41); Mean Corp Hgb Conc 34.1 g/dL (32-36); Mean Corpuscular Volume 96.6 fL (81-99); Mean Platelet Vol. 9.1 fl (6.2-12.0); Monocyte# 0.81 X10^3/uL; Monocyte% 5.3 % (0-10); NRBC Flagged by Analyzer 0 % (0-5); Neutrophil # 8.35 X10^3/uL (2.7-7.7); Neutrophil % 54.5 % (47-70); POSITIVE DIFFERENTIAL YES; POSITIVE MORPHOLOGY YES; Platelet Count 325 K/mm3 (150-450); RBC Distribution Width CV 14.3 % (11.6-14.6); RBC Distribution Width SD 50.8 fl (35.1-43.9); Red Blood Count 4.46 M/mm3 (4.2-5.4); White Blood Count 15.3 K/mm3 (4.4-11.0)
[2021-03-02 23:30] LABS: ALB/GLOB Ratio 0.9 RATIO (0.9-2.4); AST(SGOT) 9 U/L (15-37); Alanine Aminotransfer ALT/SGPT 18 U/L (13-56); Albumin, Serum 3.7 g/dL (3.2-5.0); Alkaline Phosphatase 110 U/L (45-117); Anion Gap 6 (5-15); BUN 13 mg/dL (7-18); BUN/Creat Ratio 13.4 RATIO (10-20); Calcium,Total 9.6 mg/dL (8.5-10.1); Chloride 107 mmol/L (98-107); Creatinine, Serum 0.97 mg/dL (0.55-1.02); EST Glomerular Filtration Rate 65 mL/min (>60); Est Glom Filt Rate - Afr Amer 78 mL/min (>60); Estimated Creatinine Clearance 58.67 ml/min; Glucose 93 mg/dL (74-106); Lipase 86 U/L (73-393); Potassium 3.1 mmol/L (3.5-5.1); Protein, Total 7.7 g/dL (6.4-8.2); Sodium Level 137 mmol/L (136-145)
[2021-03-02] MEDS: 0.9% Normal Saline 1,000 ML 999 ML IV (23:34)
[2021-03-02 23:35] LABS: Differential Indicated SCAN CRITERIA MET
[2021-03-02] MEDS: DiphenhydrAMINE 50 MG/ML Syringe IV (23:35)
[2021-03-02] MEDS: proCHLORPERazine 10 MG/2 ML Vial IV (23:35)
[2021-03-02] MEDS: Ketorolac 30 MG/ML Syringe 15 MG IV (23:35)
[2021-03-02 23:40] LABS: Amphetamine Urine VISTA NEGATIVE (<1000 ng/mL); Barbiturate Urine VISTA NEGATIVE (< 200 ng/mL); Benzodiazepine Urine VISTA NEGATIVE (< 200 ng/mL); Cocaine Urine VISTA NEGATIVE (< 300 ng/mL); Ecstacy Urine VISTA NEGATIVE (< 500 ng/mL); Methadone Urine VISTA NEGATIVE (< 300 ng/mL); PCP Urine VISTA NEGATIVE (< 25 ng/mL); THC Urine VISTA POSITIVE (< 50 ng/mL); Vista UDS pH Range 6
[2021-03-03] VITALS (7 sets, daily range): BP systolic 140–146; BP diastolic 84–93; PULSE 80; RESP 16–18; O2SAT 97–98
[2021-03-03 00:13] LABS: Atypical Lymphocyte 1+ %; Differential Comment SCANNED
[2021-03-03] MEDS: PARoxetine CR 12.5 MG Tablet 50 MG PO (00:46)
[2021-03-03] MEDS: RisperiDONE 1 MG Tablet PO (00:47)
[2021-03-03] MEDS: levETIRAcetam 750 MG Tablet PO ×2 (00:47→10:33)
[2021-03-03] MEDS: Amantadine 100 MG Capsule PO ×2 (00:47→10:33)
[2021-03-03 00:56] LABS: Bacteria 0 SEEN /hpf (None Seen); Color, Urine Yellow (Yellow); Glucose, Dipstick Normal (Normal); Ketone-Dipstick Negative (Negative); Leukocyte Esterase-Dipstick Negative /ul (Negative); Mucous, Urine 0 SEEN /hpf (<or=2+); Nitrite-Dipstick Negative (Negative); Occult Blood-Urine Negative /ul (Negative); Protein-Dipstick Negative (Negative); Red Blood Cells-Urine 0 SEEN /hpf (0-5); Squamous Epithelial Cells - UA 0 SEEN /hpf (5-10); Urine Bilirubin Dipstick Negative (Negative); Urine Clarity Clear (Clear); Urine Urobilinogen Normal (Normal); Urine pH 6.5 (5.0 - 8.0); White Blood Cells 0 SEEN /hpf (0-5)
--- NOTE | 2021-03-03 01:17 | CT_ITS ---
EXAM: CT ABDOMEN AND PELVIS WITH INTRAVENOUS CONTRAST CLINICAL INDICATION: abd pain, leukocytosis abd pain, leukocytosis TECHNIQUE: Helically acquired images were obtained of the abdomen and pelvis with intravenous contrast. This CT exam was performed using one or more of the following dose reduction techniques: automated exposure control, adjustment of the mA and/or kV according to patient size, and/or use of iterative reconstruction technique. This report was created using [employer] report generation technology. CONTRAST: IV 100mL Isovue-300 COMPARISON: CT scan abdomen and pelvis 01/01/2021. FINDINGS: LOWER THORAX: There is mild atelectasis in the visualized lung bases bilaterally. No cardiomegaly. No significant pericardial effusion. ABDOMEN: LIVER: Unremarkable. Homogeneous. No focal mass. GALLBLADDER AND BILE DUCTS: Unremarkable. No calcified gallstones. No gallbladder distention or wall edema. No intra- or extrahepatic biliary ductal dilation. PANCREAS: Unremarkable. No focal cystic or solid mass. SPLEEN: Unremarkable. Normal size without focal cystic or solid mass. ADRENALS: Unremarkable. No nodules. KIDNEYS AND URETERS: Unremarkable. Normal renal size and position. No hydronephrosis. STOMACH AND BOWEL: There are a few colonic diverticula. No stomach or bowel distention. No focal inflammatory change. PELVIS: APPENDIX: A normal-appearing appendix is seen on axial images 87-98. BLADDER: Unremarkable. REPRODUCTIVE: The uterus is absent. ABDOMEN and PELVIS: INTRAPERITONEAL SPACE: Unremarkable. No ascites or other fluid collection. No free air. BONES/JOINTS: Unremarkable. No suspicious lytic or blastic abnormality. SOFT TISSUES: There is a small umbilical hernia which contains fat. VASCULATURE: Unremarkable. Abdominal aorta is non-dilated. LYMPH NODES: Unremarkable. No enlarged lymph nodes. CT/Abdomen/Pelvis W IV Cont ONLY IMPRESSION: 1. Previous hysterectomy. 2. Mild colonic diverticulosis, without evidence for acute diverticulitis. 3. No evidence for acute pathology. Electronically Signed: Jelani Rawls MD at 2:10 EST , Service support ,
[2021-03-03] MEDS: Potassium Chloride Oral Tablet 20 MEQ 40 MEQ PO (02:01)
[2021-03-03] MEDS: Potassium Chloride 10mEq/100mL 10 MEQ/100 ML IV.SOLN. 100 MEQ IV BOLUS (02:02)
--- NOTE | 2021-03-03 02:08 | ED.RN ---
crisis paged to see patient at this time
--- NOTE | 2021-03-03 02:26 | ED.RN ---
crisis called back to speak to dr. gomez at this time
[2021-03-03] MEDS: Potassium Chloride 10mEq/100mL 10 MEQ/100 ML IV.SOLN. IV BOLUS (03:29)
--- NOTE | 2021-03-03 10:05 | NURSING ---
CALLED [facility], ETA IS 45 MIN
[2021-03-03] MEDS: Topiramate 200 MG Tablet PO (10:32)
[2021-03-03] MEDS: Propranolol 10 MG Tablet PO (10:33)
== END 2021-03-03 11:39 ==
PROVIDERS: Emergency Provider Emergency Medicine; PCP Family Medicine
DX: F31.9 Bipolar disorder, unspecified (principal); F29 Unspecified psychosis not due to a substance or known physiological condition; F41.9 Anxiety disorder, unspecified; G43.009 Migraine without aura, not intractable, without status migrainosus; R56.9 Unspecified convulsions; E87.6 Hypokalemia; F17.210 Nicotine dependence, cigarettes, uncomplicated; Z79.899 Other long term (current) drug therapy
CPT/HCPCS: 74177; 80053; 80307; 81001; 82077; 83690; 84703; 85025; 87426; 93005; 96361; 96365; 96366; 96375; 99285; J7030; J7050; Q9967; A4216

== ENCOUNTER 2021-07-27 11:33 | Emergency (ER) | payer MEDICAID, SELFPAY ==
[2021-07-27 11:33] VITALS: BP 130/94; PULSE 94; RESP 18; TEMP 36; O2SAT 100; BMI 34.0
--- NOTE | 2021-07-27 12:14 | US_ITS ---
STUDY: ABDOMINAL ULTRASOUND - RIGHT UPPER QUADRANT REASON FOR VISIT: Female, 50 years old . Three-week history of right upper quadrant pain. TECHNIQUE: Ultrasound evaluation of the right upper quadrant was performed with real-time and static jensen-scale imaging. TECHNICAL QUALITY: Adequate. COMPARISON: None. FINDINGS: Liver: The liver is mildly enlarged and measures 17.3 cm. There is increased echogenicity consistent with fatty infiltration. The bile ducts are within normal limits. There is hepatic color flow. The direction of portal flow is hepatopetal. There is no demonstrated mass lesion. Gallbladder: Normal distended gallbladder. The gallbladder wall measures 2.4 mm. There is a negative sonographic Jarvis''s sign. There is no pericholecystic fluid. There are no gallstones. Common Bile Duct (C.B.D.): The common bile duct measures 3.4 mm. Pancreas: Normal size of the head, body and tail of the pancreas. There is increased echogenicity of the pancreas. There is no demonstrated pancreatic mass or cyst. Right Kidney: Normal size of the right kidney. The right kidney measures 11.2 cm x 5.1 cm x 4.4 cm. Normal renal cortex. The right cortex measures 1.3 cm. There is no demonstrated renal mass or cyst. There is no right hydronephrosis. US/Gallbladder IMPRESSION: Mild hepatomegaly. Diffuse fatty infiltration of the liver. Electronically Signed: Steven Caban MD at 14:24 EDT ,
--- NOTE | 2021-07-27 12:26 | EDS_ITS ---
HPI HPI - GI History of Present Illness Chief Complaint: Abd Pain Detail of Chief Complaint: Right upper quadrant pain for 2 to 3 weeks Informant: patient Abdominal Pain/Flank Pain Onset: Weeks Context: Sudden Onset Timing: Continuous and Waxes and wanes Quality: Aching Location: RUQ Current Severity: Mild Maximum Severity: Severe Worsened by: Nothing Relieved by: Nothing Nausea/Vomiting/Emesis GI Symptom: Positive for Nausea; Negative for Vomiting Quality: Negative for Blood streaks, Coffee ground and Hematemesis Diarrhea/Melena/Hematochezia GI Symptom: Negative for Diarrhea, Melena and Hematochezia Narrative Narrative: Patient is a 42-year-old woman who does have history of of daily marijuana use and at times greasy fried foods. There is a family history of biliary disease. She is not had anything to eat since 8 PM. She had cereal with milk. She had a bowel movement this morning that was her normal. She states has been having diarrhea for some time. She has no history of Crohn's or ulcerative colitis. She has no history of irritable bowel syndrome. She denies cardiac respiratory symptoms. She denies dysuria, frequency, urgency or hematuria. The right upper quadrant pain does radiate to the intrascapular region. Prior similar symptoms: No Recent Illness/Hospitalization: No PFSH PFSH Medical History Anxiety Bipolar 1 disorder Bipolar disorder Carotid artery stenosis Current use of proton pump inhibitor Dystonic movements GERD (gastroesophageal reflux disease) Hyperlipemia Major depressive disorder Marijuana abuse Migraine Pseudoseizures PTSD (post-traumatic stress disorder) Restless leg syndrome Right shoulder pain Tobacco use Home Medications topiramate 200 mg PO BID 08/08/13 [History Last Taken 09/02/14] risperidone 1 mg PO QHS 02/16/21 [History Last Taken Unknown] amantadine HCl 100 mg PO BID 02/20/21 [History Last Taken Unknown] propranolol 10 mg PO DAILY 02/20/21 [History Last Taken Unknown] azelastine 2 spray INTRANASAL BID #30 ml 02/26/21 [Rx Last Taken Unknown] acetaminophen 500 mg tablet 1,000 mg PO BID PRN tab 03/02/21 [History Last Taken Unknown] diphenhydramine HCl 25 mg capsule 50 mg PO BID cap 03/02/21 [History Last Taken Unknown] levetiracetam 750 mg tablet 750 mg PO BID #60 tab 03/02/21 [Rx Last Taken Unknown] paroxetine HCl 25 mg tablet,extended release 24 hr 50 mg PO QHS tab 03/02/21 [History Last Taken Unknown] Allergy/AdvReac Type Severity Reaction Status Date / Time lamotrigine [From Lamictal] Allergy Hives Verified 07/27/21 14:51 sulfamethoxazole Allergy Swelling Verified 07/27/21 14:51 [From Bactrim] trimethoprim [From Bactrim] Allergy Swelling Verified 07/27/21 14:51 clindamycin HCl AdvReac Nausea/Vom/ Verified 07/27/21 14:51 [From Cleocin] Diarrhea clindamycin palmitate HCl AdvReac Nausea/Vom/ Verified 07/27/21 14:51 [From Cleocin] Diarrhea clindamycin phosphate AdvReac Nausea/Vom/ Verified 07/27/21 14:51 [From Cleocin] Diarrhea Family History Mother Diabetes Hypertension Rheumatoid arthritis Father Cancer Uncle Cerebral aneurysm Surgical History S/P hysterectomy S/P tonsillectomy and adenoidectomy Social History household members: family Smoking Status: Current every day smoker tobacco type: cigarettes Tobacco: How many years used: 35 second hand exposure: Yes alcohol intake: former substance use type: marijuana ROS ROS ED Constitutional Constitutional ED: Denies chills, fever(s), subjective, sweats or weight loss ENT ENT ED: Denies ear pain, rhinorrhea or sore throat Cardiovascular Cardiovascular: Denies chest pain, orthopnea, palpitations or racing heartbeat Respiratory/Chest Respiratory/Chest: Denies cough, dyspnea, dyspnea on exertion, orthopnea or sputum Gastrointestinal Gastrointestinal: Reports diarrhea and nausea; Denies abdominal pain, constipation or vomiting Genitourinary Genitourinary ED: Denies dysuria, hematuria or urinary frequency Musculoskeletal Musculoskeletal: Reports back pain; Denies arthralgias, myalgias or neck pain Integumentary Denies abscess, Abrasions or rash Neurologic Neurologic: Reports weakness; Denies headache(s) or paresthesias Endocrine Endocrinology: Denies polydipsia, polyphagia or polyuria Hematologic/Lymphatic Hematologic/Lymphatic: Denies easy bleeding or easy bruising EXAM Physical Exam Const Vital Signs: 07/27/21 11:33 Temperature 96.8 F L Temperature Source Temporal Pulse Rate 94 Respiratory Rate 18 Blood Pressure 130/94 H Blood Pressure Mean 106 Pulse Ox 100 Oxygen Delivery Method Room Air Positive well nourished, well developed, obese and unkempt General Appearance ED: unkempt and well developed; Negative for pallor Nutritional Appearance: obese HEENT Reports TM's clear and dry mucous membranes normocephalic and atraumatic Tympanic Membrane ED: Yes TM's clear Mouth ED: Yes dry mucous membranes Mouth: dry mucous membranes Eyes PERRL and EOMs intact bilaterally General Eye ED: Negative for pale conjunctiva or scleral icterus Neck no lymphadenopathy, supple and no JVD Resp normal respiratory effort and clear to auscultation bilaterally Effort and Inspection: Negative for pain with movement Auscultation: Negative for diminished lung sounds Cardio regular rate, regular rhythm, S1 normal heart sound, S2 normal heart sound and no murmurs GI Negative for non-tender or non-distended Inspection: abdominal distention Auscultation: hypoactive bowel sounds; Negative for normoactive bowel sounds Palpation: soft, tender RUQ, McBurney's point and Jarvis's sign and guarding RUQ; Negative for rigid, hepatomegaly, splenomegaly, pulsatile mass or rebound tenderness present Back/Spine no CVA tenderness Cervical Spine: Negative for cervical spine tenderness Thoracic Spine / Upper Back: Negative for thoracic spinal tenderness Lumbar Spine / Lower Back: Negative for lumbar spinal tenderness Extremity Negative for full ROM General Extremety ED: Negative for edema General Extremity: Negative for edema Neuro CN's II-XII intact bilaterally and no sensory deficits noted Sensorium / Orientation: alert, oriented to person, oriented to place and oriented to time Motor Exam: strength 5/5 throughout Psych Appearance: unkempt Mood & Affect: depressed Skin no wounds General Skin Exam: Negative for jaundice or pallor Lesions: no lesions Rashes: no rashes MDM MDM MDM Narrative Medical decision making narrative: Patient symptoms may be due to biliary disease versus lower lobe pneumonia versus cannabis hyperemesis. Patient was treated with Zofran and morphine for her nausea and pain. Appropriate blood work was ordered. Lab Data Attestation: I reviewed the patient's lab results. Lab results narrative: CBC and differential are unremarkable. Comprehensive metabolic panel is remarkable for slight elevation of creatinine with a GFR of 57. Hepatic enzymes are normal. Alkaline phosphatase slightly elevated. Ultrasound reveals a fatty liver. Labs: Laboratory Results - last 24 hr 07/27/21 07/27/21 12:30 12:30 WBC 7.1 RBC 4.66 Hgb 14.7 Hct 43.0 MCV 92.3 MCH 31.5 MCHC 34.2 RDW Std Deviation 44.0 H RDW Coeff of Sade 13.1 Plt Count 261 MPV 8.8 Immature Gran % (Auto) 0.300 Neut % (Auto) 50.3 Lymph % (Auto) 38.5 Harris % (Auto) 7.3 Eos % (Auto) 2.8 Baso % (Auto) 0.8 Absolute Neuts (auto) 3.6 Absolute Lymphs (auto) 2.75 Nucleated RBC % 0 Sodium 137 Potassium 3.8 Chloride 106 Carbon Dioxide 24.0 Anion Gap 7 BUN 13 Creatinine 1.08 H Estim Creat Clear Calc 52.70 Est GFR (MDRD) Af Amer 69 Est GFR (MDRD) Non-Af 57 L BUN/Creatinine Ratio 12.0 Glucose 115 H Calcium 9.7 Total Bilirubin 0.20 AST 25 ALT 23 Alkaline Phosphatase 135 H Total Protein 7.4 Albumin 3.4 Globulin 4.0 Albumin/Globulin Ratio 0.8 L Lipase 111 Radiography Diagnostic Testing: Clinical Impression(s) from Imaging Studies Gallbladder Ultrasound 07/27/21 12:14 IMPRESSION: Mild hepatomegaly. Diffuse fatty infiltration of the liver. Electronically Signed: Steven Caban MD at 14:24 EDT , Discharge Plan Triage Chief Complaint: Abd Pain ED Provider: Bubba Rabago Dx/Rx/DC Orders Clinical Impression: Right upper quadrant abdominal pain, Fatty infiltration of liver, Acute renal insufficiency Instructions: Nonalcoholic Fatty Liver ..., ED Abdominal Pain Unkn Cause Fem, ED Renal Insufficiency Prescriptions: No Action diphenhydramine HCl [Benadryl] 25 mg capsule 50 mg PO BID RF: 0 acetaminophen [Tylenol Extra Strength] 500 mg tablet 1,000 mg PO BID PRN (Reason: Pain) RF: 0 levetiracetam 750 mg tablet 750 mg PO BID Qty: 60 RF: 2 topiramate 200 MG tablet 200 mg PO BID RF: 0 paroxetine HCl [Paxil CR] 25 mg tablet extended release 24 hr 50 mg PO QHS RF: 0 risperidone 1 mg Tablet 1 mg PO QHS RF: 0 amantadine HCl 100 mg Tablet 100 mg PO BID RF: 0 propranolol 10 mg tablet 10 mg PO DAILY RF: 0 azelastine 137 mcg (0.1 %) aerosol,spray 2 spray intranasal BID Qty: 30 RF: 0 Primary Care Provider: John Marcos Referrals: John Marcos MD [Primary Care Provider] - 3-5 Days Disposition Disposition: Home, Self Care
[2021-07-27] MEDS: Morphine 4 MG/ML Syringe IV ×2 (12:29→14:47)
[2021-07-27] MEDS: Ondansetron 4 MG/2 ML Vial IV (12:29)
[2021-07-27 12:44] LABS: Absolute Lymphocyte Count 2.75 X10^3/uL (0.83-4.51); Absolute Neutrophil Count 3.6 X10^3/uL (2.0-7.7); Basophil# 0.06 X10^3/uL; Basophil% 0.8 % (0-1); Eosinophils% 2.8 % (0-5); Hemoglobin 14.7 g/dL (12.0-15.0); Lymphocyte # 2.75 X10^3/ul (0.83-4.51); Lymphocyte % 38.5 % (19-41); Mean Corp Hgb Conc 34.2 g/dL (32-36); Mean Corpuscular Hgb 31.5 pg (27.0-32.0); Mean Corpuscular Volume 92.3 fL (81-99); Mean Platelet Vol. 8.8 fl (6.2-12.0); Monocyte# 0.52 X10^3/uL; Monocyte% 7.3 % (0-10); NRBC Flagged by Analyzer 0 % (0-5); Neutrophil # 3.59 X10^3/uL (2.7-7.7); Neutrophil % 50.3 % (47-70); Platelet Count 261 K/mm3 (150-450); RBC Distribution Width CV 13.1 % (11.6-14.6); Red Blood Count 4.66 M/mm3 (4.2-5.4); White Blood Count 7.1 K/mm3 (4.4-11.0)
[2021-07-27 12:59] LABS: ALB/GLOB Ratio 0.8 RATIO (0.9-2.4); AST(SGOT) 25 U/L (15-37); Alanine Aminotransfer ALT/SGPT 23 U/L (13-56); Albumin, Serum 3.4 g/dL (3.2-5.0); Alkaline Phosphatase 135 U/L (45-117); Anion Gap 7 (5-15); BUN 13 mg/dL (7-18); Calcium,Total 9.7 mg/dL (8.5-10.1); Chloride 106 mmol/L (98-107); Creatinine, Serum 1.08 mg/dL (0.55-1.02); EST Glomerular Filtration Rate 57 mL/min (>60); Est Glom Filt Rate - Afr Amer 69 mL/min (>60); Glucose 115 mg/dL (74-106); Lipase 111 U/L (73-393); Potassium 3.8 mmol/L (3.5-5.1); Protein, Total 7.4 g/dL (6.4-8.2); Sodium Level 137 mmol/L (136-145)
[2021-07-27 15:42] VITALS: BP 113/80
== END 2021-07-27 15:48 | disposition home or self-care (01) ==
PROVIDERS: Emergency Provider Emergency Medicine; PCP Family Medicine; Visit Provider Emergency Medicine
DX: K76.0 Fatty (change of) liver, not elsewhere classified (principal); F31.9 Bipolar disorder, unspecified; N28.9 Disorder of kidney and ureter, unspecified; R10.11 Right upper quadrant pain; E78.5 Hyperlipidemia, unspecified; E66.9 Obesity, unspecified; F41.9 Anxiety disorder, unspecified; F17.210 Nicotine dependence, cigarettes, uncomplicated; Z68.34 Body mass index [BMI] 34.0-34.9, adult; Z79.899 Other long term (current) drug therapy; Z83.79 Family history of other diseases of the digestive system
CPT/HCPCS: 76705; 80053; 83690; 85025; 96374; 96375; 96376; 99283; A4216; J2405

== ENCOUNTER → 2024-09-29 | Outpatient (CLI) | payer MEDICAID, SELFPAY ==
--- NOTE | 2024-09-29 09:52 | CT_ITS ---
PROCEDURE: LOW DOSE CT LUNG SCREENING 09/29/2024 REASON FOR EXAM: NICOTINE DEPENDENCE TECHNIQUE: Low Dose CT Lung screening without contrast. Coronal and Sagittal reconstruction series were provided. One or more dose reduction techniques were used (e.g., Automated exposure control, adjustment of the mA and/or kV according to patient size, use of iterative reconstruction technique). REFERENCE LINK: [employer] Lung-RADS RADIATION DOSE SUMMARY: CTDlvol: 3.02 mGy DLP: 99 mGycm COMPARISON: 02/16/2021. FINDINGS: PULMONARY NODULES: (Only nodules >3mm are reported) Nodules described below are on series 2 unless otherwise specified. Minimal emphysema. Mild bilateral basilar atelectatic pulmonary changes. Normal unenhanced main pulmonary artery and right and left pulmonary arteries. Normal bilateral peripheral pulmonary arteries. Normal thoracic aorta and visualized great vessels. There is no demonstrated aortic aneurysm. Normal heart and pericardium. Normal mediastinum. Normal hilar regions. Normal visualized trachea and bronchi. Normal pleura. Normal visualized upper abdomen. CT/Low Dose CT Lung Screening IMPRESSION: Minimal emphysema. Coronary artery calcification (CAC) is is present Lung-RADS Category: 1 NEGATIVE. RECOMMEND 12-MONTH SCREENING LDCT. Reading [facility]
--- OUTSIDE RECORDS SUMMARY | 2024-09-29 09:52 | XMS RPT_ITS | CCD ---
Author Organization [facility] Care Team Providers Care Fork Operator Name Role Phone Sulove, Saksham Unavailable Unavailable Sulove, Saksham Unavailable Unavailable Sulove, Saksham Unavailable Unavailable John Sadler MD Primary Care Provider [phone] John Sadler MD Primary Care Provider John Sadler MD Primary Care Provider John Sadler MD Primary Care Provider [phone] Tereza Bateman APRN.CNP Unavailable Stacia Verdugo PA-C Unavailable [phone] John Sadler MD Primary Care Provider [phone] STACIA VERDUGO Referring Unavailable JOHN SADLER Primary Care Unavailable STACIA VERDUGO Referring Unavailable JOHN SADLER Primary Care Unavailable JOHN SADLER Primary Care Unavailable STACIA VERDUGO Attending Unavailable JOHN SADLER Primary Care Unavailable Stacia Earl Referring Unavailable Stacia Earl Attending Unavailable Stacia Earl Primary Care Unavailable Allergies Allergy Classification Reported Allergen(s) Allergy Type Date of Onset Reaction(s) Facility (1 source) clindamycin; Translations: [Cleocin HCl] Drug Allergy [facility] Repository (1 source) lamoTRIgine; Translations: [facility]al[facility] sulfamethoxazole; Translations: [sulfamethoxazole] Drug Allergy 4 Anaphylaxis [facility] Repository (1 source) sulfamethoxazole / trimethoprim; Translations: [facility]Bactrim] [facility] ([facility] sources[facility] Clindamycin; Translations: [CLINDAMYCIN HCL] Drug Allergy 4 Other: See Comments [facility] Work Phone: (20 sources) lamoTRIgine; Translations: [LAMOTRIGINE] Drug Allergy 4 Rash [facility] Work Phone: (2 sources) Clindamycin; Translations: [clindamycin palmitate HCl] [facility] Clindamycin; Translations: [clindamycin phosphate] Drug Allergy 2 Nausea/Vom/Chante rrhea [facility] Repository (1 source) Trimethoprim Drug Allergy 2 Swelling [facility] Work Phone: (1 source) Clindamycin Drug Allergy 2 [facility] Repository (1 source) lamoTRIgine Drug Allergy 2 [facility] Repository (1 source) Trimethoprim Drug Allergy 2 [facility] Repository Medications Current Medications Medication Drug Class(es) Dates Sig (Normalized) Sig (Original) acetaminophen 500 mg oral tablet (17 sources) Start: 10-08-2021 take 2 tablets by mouth every six hours as needed acetaminophen (TYLENOL EXTRA STRENGTH) 500 mg tablet Take 2 tablets by mouth every 6 hours as needed for pain. 120 tablet 5 10/08/2021 Active Start: 03-02-2021 take 2 tablets by mo uth twice daily Acetaminophen (Tylenol Extra Strength) 500 mg tablet Active 1000 MG PO TWICE A DAY March 02, 2021 10:04am Comment on above: Take 2 tablets by mo uth every 6 hours as needed for pain. amantadine hydrochloride 100 mg oral tablet (20 sources) Influenza A M2 Protein Inhibitor Start: 02-20-2021 take 100 mg by mouth twice daily Amantadine Hcl Active 100 MG PO TWICE A DAY February 20, 2021 11:08am Start: 06-19-2019 take 1 capsule by mo uth twice daily amantadine HCl (SYMMETREL) 100 mg capsule Take 1 capsule by mouth twice daily[facility]2019 Active Comment on above: Take 1 capsule by mo uth twice daily. [facility] azelastine hydrochloride 0.137 mg/actuat metered dose nasal spray (1 source) Histamine-1 Receptor Antagonist Start: take 1 spray(s) nasal route twice daily Azelastine Active 2 SPRAY INTRANASAL TWICE A DAY February 26, 2021 4:53pm administer into each nostril cholecalciferol 1.25 mg oral capsule (4 sources) Vitamin D Start: take 1 capsule by mouth every week cholecalciferol, Vitamin D3, (VITAMIN D3) 1,250 mcg (50,000 unit) cap capsule Take 1 capsule by mouth one time a week. 12 capsule 1 08/15/2024 Active diphenhydrAMINE hydrochloride 25 mg oral capsule (1 source) Histamine-1 Receptor Antagonist Start: take 2 capsules by mouth twice daily Diphenhydramine Hcl (Benadryl) 25 mg capsule Active 50 MG PO TWICE A DAY March 02, 2021 10:03am enteric contrast (will be provided with radiology test) (1 source) Start: End: enteric contrast (will be provided with radiology test) Indications: Elevated alkaline phosphatase level , LUQ pain , Epigastric pain , Bloating , Early satiety , RUQ pain , Hepatomegaly , Nausea For CT CHESTABD/PEL W IVCON Routine order Administer, As Directed One Time Only, via Oral, Rectal, both Oral and Rectal, Enteric Tube, Stoma or Indwelling Catheter, Enteric Contrast as designated per enteric contrast guidelines 1 Each 0 11/10/2021 11/11/2021 Active Comment on above: For CT CHESTABD/PEL W IVCON Routine order Administer, As Directed One Time Only, via Oral, Rectal, both Oral and Rectal, Enteric Tube, Stoma or Indwelling Catheter, Enteric Contrast as designated per enteric contrast guidelines iv contrast (will be provided with radiology test) (1 source) Start: End: iv contrast (will be provided with radiology test) Indications: Elevated alkaline phosphatase level , LUQ pain , Epigastric pain , Bloating , Early satiety , RUQ pain , Hepatomegaly , Nausea CT Chest ABD/PEL-Inject, intravenously, once for 1 dose.No IV access, insert saline lock prior to the beginning of sedation, infusion, injection of imaging exam. Discontinue saline lock post exam. If Pt. has a central line or IVAD, may access for administration according to line specific nursing protocol. Once exam is complete flush line and de-access according to line specific nursing protocol in the CT contrast administration guidelines link. 1 Each 0 11/10/2021 11/11/2021 Active Comment on above: CT Chest ABD/PEL-Inj ect, intravenously, once for 1 dose.No IV access, insert saline lock prior to the beginning of sedation, infusion, injection of imaging exam. Discontinue saline lock post exam. If Pt. has a central line or IVAD, may access for administration according to line specific nursing protocol. Once exam is complete flush line and de-access according to line specific nursing protocol in the CT contrast administration guidelines link. levETIRAcetam 750 mg oral tablet (5 sources) Start: take 750 mg by mouth twice daily Levetiracetam Active 750 MG PO TWICE A DAY 60 March 02, 2021 7:46pm Start: 02-20-2021 End: 08-07-2021 take 1 tablet by mouth twice daily levETIRAcetam (KEPPRA) 1,000 mg tablet Take 1 tablet by mouth twice daily. 0 02/20/2021 08/07/2021 Discontinued (Discontinued by another Health Care Provider) Comment on above: Take 1 tablet by sharon th twice daily. 24 hr nicotine 0.875 mg/hr transdermal system (5 sources) Cholinergic Nicotinic Agonist Start: 08-15-19 apply 1 dose transdermal route every twenty-four hours nicotine (NICODERM) 21 mg/24 hr Apply 1 patch as directed every 24 hours. 28 patch 1 08/14/2024 Active pantoprazole 20 mg delayed release oral tablet (14 sources) Proton Pump Inhibitor Start: 08-15-19 End: 11-13-19 25 take 1 tablet by mouth once daily pantoprazole DR (PROTONIX) 20 mg tablet Take 1 tablet by mouth once daily. 30 tablet 2 08/14/2024 11/12/2024 Active Start: 11-10-2021 End: 08-14-2024 take 1 tablet by mouth once daily pantoprazole DR (PROTONIX) 40 mg tablet Take 1 tablet by mouth once daily. 30 tablet 2 08/14/2024 08/14/2024 Discontinued Comment on above: Take 1 tablet by sharon once daily. 24 hr PARoxetine hydrochloride 25 mg extended release oral tablet (20 sources) Serotonin Reuptake Inhibitor Start: 03-02-2021 Paroxetine Hcl (Paxil Cr) 25 mg tablet extended release 24 hr Active 50 MG PO AT BEDTIME March 02, 2021 10:03am Start: 06-19-2019 End: 10-08-2021 take 2 tablets by mouth twice daily PARoxetine ER (PAXIL CR) 25 mg 24 hr tablet Take 2 tablets by mouth twice daily. [facility] 0 06/19/2019 10/08/2021 Discontinued Start: 08-08-2013 End: 03-02-2021 Paroxetine Hcl (Paxil Cr) 25 MG tablet extended release 24 hr Discontinued 50 MG PO TWICE A DAY August 08, 2013 3:45pm March 02, 2021 10:04am take 1 tablet by sharon once daily PARoxetine (PAXIL) 10 mg tablet Take 10 mg by mouth once daily. Active take 1 tablet by sharon once daily PARoxetine (PAXIL) 40 mg tablet Take 40 mg by mouth once daily. Active Comment on above: Take 2 tablets by mo [facility] twice daily. [facility] Take 40 mg by mouth once daily. Take 10 mg by mouth once daily. polyethylene glycol 3350 72398 mg powder for oral solution (20 sources) Osmotic Laxative Start: End: take 17 g by mouth once daily as needed Polyethylene Glycol 3350 Discontinued 17 GM PO DAILY NEEDED January 09, 2021 6:20pm March 02, 2021 10:04am Start: 01-08-2021 End: 10-08-2021 polyethylene glycol 3350 (PA RALAX) 17 gram/dose powder Indications: Acute constipation Take 17g in 8oz water once or twice a day for constipation until bowels are regular and then as needed 225 g 5 10/08/2021 Active Comment on above: Take 17g in 8oz wate r once or twice a day for constipation until bowels are regular and then as needed polyethylene glycol 3350 124312 mg / potassium chloride 2970 mg / sodium bicarbonate 6740 mg / sodium chloride 5860 mg / sodium sulfate 48976 mg powder for oral solution (13 sources) Osmotic Laxative Start: 11-11-19 peg 3350-Electrolytes (GOLYTELY) 236-22.74-6.74 -5.86 gram suspension Indications: Colon cancer screening Refer to printed prep instructions from your provider. 4000 mL 11/10/2021 Active Comment on above: Refer to printed pre p instructions from your provider. microencapsulated potassium chloride 20 meq extended release oral tablet (2 sources) Start: 09-21-19 take 1 tablet by mouth once daily potassium chloride ER (KLOR-CON) 20 mEq tablet Take 1 tablet by mouth once daily. 30 tablet 11 09/20/2024 Active Start: 08-15-2024 End: 08-22-2024 take 1 tablet by mouth once daily potassium chloride ER (KLOR-CON) 20 mEq tablet Take 1 tablet by mouth once daily for 7 days. 7 tablet 08/15/2024 08/22/2024 Active risperiDONE 1 mg oral tablet (20 sources) Atypical Antipsychotic Start: 06-19-2019 End: 10-08-2021 risperiDONE (RISPERDAL) 1 mg tablet Take 1 mg in AM and 2 mg in PM. Per Psych 10/08/2021 Active Comment on above: Take 1 tablet by sharon th at bedtime as needed. [facility] Take 1 mg in AM and 2 mg in PM. [facility] rosuvastatin calcium 5 mg oral tablet (4 sources) HMG-CoA Reductase Inhibitor Start: 08-15-2024 take 1 tablet by mouth once daily at bedtime rosuvastatin (CRESTOR) 5 mg tablet Take 1 tablet by mouth daily at bedtime. 90 tablet 1 08/15/2024 Active topiramate 200 mg oral tablet (20 sources) Start: 08-08-2013 take 1 tablet by mouth twice daily topiramate (TOPAMAX) 200 mg tablet Take 1 tablet by mouth twice daily. [facility] 06/19/2019 Active Comment on above: Take 1 tablet by sharon th twice daily. [facility] traZODone hydrochloride 50 mg oral tablet (20 sources) Serotonin Reuptake Inhibitor take 1 tablet by mouth once daily at bedtime traZODone (DESYREL) 50 mg tablet Take 50 mg by mouth daily at bedtime. Active Comment on above: Take 50 mg by mouth daily at bedtime. white petrolatum - mineral oil (EUCERIN) cream (15 sources) Start: 12-15-2020 End: 12-15-2021 white petrolatum - mineral oil (EUCERIN) cream Indications: Itchy skin Apply to affected area as needed for Dry Skin (daily as needed). 113 g 11 12/15/2020 12/15/2021 Active Comment on above: Apply to affected ar ea as needed for Dry Skin (daily as needed). Completed/Discontinued Medications Medication Drug Class(es) Dates Sig (Normalized) Sig (Original) azithromycin 250 mg oral tablet (1 source) Macrolide Antimicrobial Start: 02-16-2021 End: 02-17-2021 take 250 mg by mouth once daily Azithromycin Discontinued 250 MG PO DAILY February 16, 2021 6:37am February 17, 2021 10:07am 2 doses left 24 hr buPROPion hydrochloride 150 mg extended release oral tablet (2 sources) Aminoketone Start: 02-20-2021 End: 03-02-2021 take 150 mg by mouth once daily Bupropion Hcl Discontinued 150 MG PO DAILY February 20, 2021 11:08am March 02, 2021 10:04am Start: 08-08-2013 End: 08-27-2014 take 1 tablet by mouth twice daily Bupropion Hcl (Wellbutrin Sr) 200 MG tablet Discontinued 200 MG PO TWICE A DAY August 08, 2013 3:45pm August 27, 2014 11:54am busPIRone hydrochloride 15 mg oral tablet (1 source) Start: 02-16-2021 End: 02-17-2021 take 15 mg by mouth twice daily Buspirone Discontinued 15 MG PO TWICE A DAY February 16, 2021 6:37am February 17, 2021 10:08am famotidine 20 mg oral tablet (19 sources) Histamine-2 Receptor Antagonist Start: 05-25-2021 End: 08-14-2024 take 1 tablet by mouth twice daily famotidine (PEPCID) 20 mg tablet Take 1 tablet by mouth twice daily. 60 tablet 5 10/08/2021 08/14/2024 Discontinued Comment on above: Take 1 tablet by sharon twice daily. fluticasone propionate 0.05 mg/actuat metered dose nasal spray (18 sources) Corticosteroid Start: 04-06-2021 End: 08-14-2024 take 2 spray(s) by mouth once daily fluticasone (FLONASE) 50 mcg/actuation nasal spray Use 2 Sprays in each nostril once daily. Rinse mouth after use. 1 Each 5 04/06/2021 08/14/2024 Discontinued Comment on above: Use 2 Sprays in each nostril once daily. Rinse mouth after use. hydrOXYzine hydrochloride 25 mg oral tablet (20 sources) Antihistamine Start: 02-20-2021 End: 03-02-2021 take 25 mg by mouth every six hours as needed Hydroxyzine Hcl Discontinued 25 MG PO EVERY 6 HOURS NEEDED February 20, 2021 11:08am March 02, 2021 10:04am Start: 02-16-2021 End: 02-17-2021 take 1 capsule by mouth twice daily Hydroxyzine Pamoate (Vistaril) 50 mg Capsule Discontinued 50 MG PO TWICE A DAY February 16, 2021 6:35am February 17, 2021 10:08am Start: 06-18-2014 End: 08-27-2014 take 1 tablet by mouth four times daily as needed Hydroxyzine (Atarax) 25 MG tablet Discontinued 25 MG PO 4 TIMES DAILY NEEDED June 18, 2014 7:54am August 27, 2014 11:54am End: 08-14-2024 take 1 capsule by mouth every eight hours as needed hydrOXYzine pamoate (VISTARIL) 50 mg capsule Take 50 mg by mouth three times daily as needed. 08/14/2024 Discontinued Comment on above: Take 50 mg by mouth three times daily as needed. ibuprofen 600 mg oral tablet (5 sources) Nonsteroidal Anti-inflammatory Drug Start: 2 End: 2 take 1 tablet by mouth every eight hours as needed ibuprofen (MOTRIN) 600 mg tablet Take 1 tablet by mouth every 8 hours as needed for pain. 90 tablet 1 05/26/2021 09/25/2021 Discontinued (Side Effects) Comment on above: Take 1 tablet by sharon every 8 hours as needed for pain. ammonium lactate 120 mg/ml topical lotion (1 source) Start: End: 1 Ammonium Lactate Discontinued 1 APPLIC TOPICAL DAILY NEEDED February 20, 2021 11:08am March 02, 2021 10:04am loratadine 10 mg oral tablet (12 sources) End: 5 take 1 tablet by mouth once daily loratadine (CLARITIN) 10 mg tablet Take 10 mg by mouth once daily. Take one tablet daily 08/14/2024 Discontinued Comment on above: Take 10 mg by mouth once daily. Take one tablet daily multivitamin tablet (19 sources) Start: End: take 1 tablet by mouth once daily multivitamin tablet Take 1 tablet by mouth once daily. 30 tablet 5 10/08/2021 08/14/2024 Discontinued Start: 10-08-2021 take 1 tablet by sharon th once daily multivitamin tablet Take 1 tablet by mouth once daily. 30 tablet 5 10/08/2021 Active Start: 04-06-2021 End: 10-08-2021 take 1 tablet by mouth once daily multivitamin tablet Take 1 tablet by mouth once daily. 30 tablet 5 04/06/2021 10/08/2021 Discontinued Start: 04-06-2021 take 1 tablet by sharon th once daily multivitamin tablet Take 1 tablet by mouth once daily. 30 tablet 5 04/06/2021 Active Comment on above: Take 1 tablet by sharon th once daily. mupirocin 0.02 mg/mg topical ointment (6 sources) RNA Synthetase Inhibitor Antibacterial Start: 01-09-20 End: 09-26-19 mupirocin (BACTROBAN) 2 % ointment Indications: Rash Apply to affected area three times daily. 15 g 1 01/08/2021 09/25/2021 Discontinued (Course of therapy completed) Comment on above: Apply to affected ar ea three times daily. omeprazole 10 mg delayed release oral capsule (1 source) Proton Pump Inhibitor Start: 08-27-19 15 End: 08-28-19 15 take 10 mg by mouth once daily Omeprazole Discontinued 10 MG PO DAILY August 26, 2014 5:36pm August 27, 2014 11:56am predniSONE 20 mg oral tablet (1 source) Start: 02-27-20 End: 03-02-20 take 40 mg by mouth once daily Prednisone Discontinued 40 MG PO DAILY February 26, 2021 4:52pm March 02, 2021 10:04am propranolol hydrochloride 20 mg oral tablet (20 sources) beta-Adrenergic Karissa Start: 05-26-19 End: 08-15-19 take 1 tablet by mouth once daily propranolol (INDERAL) 20 mg tablet Take 1 tablet by mouth once daily. 30 tablet 5 11/25/2021 08/14/2024 Discontinued Start: 02-20-2021 take 10 mg by mouth once daily Propranolol Active 10 MG PO DAILY February 20, 2021 11:16am Start: 02-17-2021 End: 02-20-2021 take 10 mg by mouth twice daily Propranolol Discontinued 10 MG PO TWICE A DAY 60 February 17, 2021 10:04am February 20, 2021 11:17am Comment on above: Take 1 tablet by sharon once daily. zolpidem tartrate 10 mg oral tablet (1 source) gamma-Aminobutyri c Acid-ergic Agonist Start: 08-08-2013 End: 08-27-2014 take 1 tablet by mouth at bedtime as needed Zolpidem (Ambien) 10 MG tablet Discontinued 10 MG PO AT BEDTIME NEEDED August 08, 2013 3:45pm August 27, 2014 12:05pm Problems Active Problems Problem Classification Problem Date Documented Da te Episodic/Chronic Abdominal pain (18 sources) Right upper quadrant pain; Translations: [Right upper quadrant pain] Episodic Anxiety disorders (20 sources) Generalized anxiety disorder; Translations: [Generalized anxiety disorder] Onset: 0 06-19-2019 Chronic Diabetes mellitus without complication (1 source) Prediabetes; Translations: [Prediabetes] 08-15-2024 Episodic Disorders of lipid metabolism (20 sources) Mixed hyperlipidemia; Translations: [Mixed hyperlipidemia] Onset: 0 07-03-2019 Chronic Disorders usually diagnosed in infancy, childhood, or adolescence (1 source) Tic disorder; Translations: [Other tic disorders] Chronic Epilepsy; convulsions (2 sources) Neurological finding; Translations: [Unspecified convulsions] Episodic Esophageal disorders (20 sources) Gastroesophageal reflux disease without esophagitis; Translations: [Gastro-esophageal reflux disease without esophagitis] Onset: 0 06-19-2019 Chronic Fluid and electrolyte disorders (5 sources) Hypokalemia; Translations: [Hypokalemia] Onset: 5 08-15-2024 Episodic Headache; including migraine (20 sources) Migraine without aura, not refractory ; Translations: [Migraine without aura, not intractable, without status migrainosus] Onset: 0 08-07-2019 Chronic Headache; including migraine (1 source) Headache; Translations: [Headache] Episodic Immunizations and screening for infectious disease (1 source) Vaccination needed; Translations: [Encounter for immunization] Episodic Malaise and fatigue (1 source) Other fatigue; Translations: [Other fatigue] Onset: 5 Episodic Miscellaneous mental health disorders (20 sources) Dissociative convulsions; Translations: [Conversion disorder with seizures or convulsions] Onset: 1 07-25-2021 Chronic Mood disorders (20 sources) Moderate major depression, single episode; Translations: [Major depressive disorder, single episode, moderate] Onset: 4 06-19-2019 Chronic Nausea and vomiting (3 sources) Nausea; Translations: [Nausea] Episodic Nonspecific chest pain (1 source) Chest pain; Translations: [Chest pain, unspecified] Episodic Nutritional deficiencies (5 sources) Vitamin D deficiency; Translations: [Vitamin D deficiency, unspecified] Onset: 5 08-15-2024 Chronic Occlusion or stenosis of precerebral arteries (20 sources) Bilateral stenosis of carotid arteries; Translations: [Occlusion and stenosis of bilateral carotid arteries] Onset: 0 07-03-2019 Chronic Other aftercare (20 sources) Patient encounter status; Translations: [Other snf (current) drug therapy] Onset: 0 08-07-2019 Episodic Other aftercare (1 source) Other intermodal customer service (current) drug therapy; Translations: [On intermodal customer service drug therapy] Onset: 5 Episodic Other circulatory disease (1 source) History of claudication; Translations: [Personal history of other diseases of the circulatory system] Episodic Other connective tissue disease (1 source) Muscle pain; Translations: [Myalgia, unspecified site] Episodic Other connective tissue disease (1 source) Myofascial pain; Translations: [Myalgia, other site] Episodic Other diseases of kidney and ureters (1 source) Acute renal insufficiency; Translations: [Disorder of kidney and ureter, unspecified] Episodic Other diseases of kidney and ureters (1 source) Renal impairment; Translations: [Disorder of kidney and ureter, unspecified] Episodic Other gastrointestinal disorders (1 source) Constipation; Translations: [Constipation, unspecified] Episodic Other gastrointestinal disorders (1 source) Acute constipation; Translations: [Constipation, unspecified] Episodic Other gastrointestinal disorders (4 sources) Abdominal bloating; Translations: [Abdominal distension (gaseous)] Episodic Other hereditary and degenerative nervous system conditions (1 source) Dystonia; Translations: [Dystonia, unspecified] Chronic Other hereditary and degenerative nervous system conditions (1 source) Restless legs; Translations: [Restless legs syndrome] Chronic Other liver diseases (17 sources) Steatosis of liver; Translations: [Fatty (change of) liver, not elsewhere classified] Onset: 2 Chronic Other liver diseases (1 source) Serum alkaline phosphatase raised; Translations: [Abnormal levels of other serum enzymes] Episodic Other liver diseases (2 sources) Large liver; Translations: [Hepatomegaly, not elsewhere classified] Episodic Other non-traumatic joint disorders (1 source) Multiple joint pain; Translations: [Pain in unspecified joint] Episodic Other nutritional; endocrine; and metabolic disorders (18 sources) Obese class I; Translations: [Obesity, unspecified] Onset: 2 Chronic Other nutritional; endocrine; and metabolic disorders (1 source) Weight gain; Translations: [Abnormal weight gain] Episodic Other screening for suspected conditions (not mental disorders or infectious disease) (20 sources) Elevated C-reactive protein; Translations: [Elevated C-reactive protein (CRP)] Onset: 2 Episodic Other upper respiratory disease (20 sources) Chronic rhinitis; Translations: [Chronic rhinitis] Onset: 2 07-25-2021 Chronic Other upper respiratory infections (1 source) Chronic maxillary sinusitis; Translations: [Chronic maxillary sinusitis] Chronic Residual codes; unclassified (1 source) Swelling; Translations: [Edema, unspecified] Episodic Residual codes; unclassified (4 sources) Early satiety; Translations: [Early satiety] Episodic Schizophrenia and other psychotic disorders (1 source) Psychotic disorder; Translations: [Unspecified psychosis not due to a substance or known physiological condition] Chronic Substance-related disorders (20 sources) Smoker; Translations: [Nicotine dependence, unspecified, uncomplicated] Onset: 0 06-19-2019 Chronic Unclassified (1 source) Complex motor tics Unclassified (1 source) Patient encounter status 08-14-2024 Unclassified (1 source) Obesity, Class I, BMI 30-34.9; Translations: [Obesity, Class I, BMI 30-34.9] Onset: 2 Past or Other Problems Problem Classification Problem Date Documented Da te Episodic/Chronic Other aftercare (6 sources) Drug therapy finding; Translations: [Other intermodal customer service (current) drug therapy] Onset: 08-07-2019 08-07-2019 Episodic Other liver diseases (20 sources) Alkaline phosphatase raised; Translations: [Abnormal levels of other serum enzymes] Onset: 06-20-2019 08-09-2019 Episodic Other non-traumatic joint disorders (20 sources) Chronic pain of right upper limb; Translations: [Pain in right shoulder] Onset: 07-21-2013 06-19-2019 Episodic Other non-traumatic joint disorders (19 sources) Joint pain; Translations: [Pain in unspecified joint] Onset: 08-18-2021 08-18-2021 Episodic Substance-related disorders (20 sources) Marijuana user; Translations: [Cannabis use, unspecified, uncomplicated] Onset: 06-19-2019 06-19-2019 Episodic Results Test Name Value Interpretation Reference Range Facility POTASSIUMon 09-19-2024 Potassium [Moles/Vol] 3.5 mmol/L Low 3.7-5.1 [facility] Comment on above: Order Comment: Speci men Type: BLOOD SPECIMEN Ordering Facility: [facility] Address: [address] [place] [address] Performed By: #### K 1 #### [facility] CLIA [id number] [address] [place] [address] [place] KENDRICK SCREENING W TOMOon 08-27 KENDRICK SCREENING W BOBO * * *Final Report* * * DATE OF EXAM: Aug 27 2024 9:28AM [facility] 0582 - KENDRICK SCREENING W BOBO / PROCEDURE REASON: Encounter for screening mammogram for breast cancer * * * * Physician Interpretation * * * * RESULT: [facility] [place] [address] [place] [id number] #[id number] - KENDRICK SCREENING W BOBO HISTORY: 54 year-old patient seen for screening. Patient is asymptomatic in both breasts. Patient states no personal history of breast cancer. The patient has a family history of breast cancer. COMPARISON STUDIES: The present examination has been compared to prior imaging studies dated 06/05/2013 (mammogram), 06/21/2013 (mammogram) and 06/25/2019 (mammogram). MAMMOGRAM TECHNIQUE: The study was acquired using full field digital technology and interpreted from soft copy. Digital Breast Tomosynthesis (DBT) images were obtained and used to assist in the interpretation of this examination. Computer-aided detection was utilized by the radiologist in the interpretation of this examination. MAMMOGRAM FINDINGS: The breasts are heterogeneously dense, which may obscure small masses. No suspicious masses, calcifications or other abnormalities are seen in either breast. There are no significant interval changes. IMPRESSION: There is no mammographic evidence of malignancy in either breast. Routine screening mammogram is recommended. Annual mammogram will be due in 1 year. BI-RADS Category 1: Negative RISK: Based on the Tyrer-Cuzick (TC) risk assessment model, this patient has a 4.8% lifetime risk of developing breast cancer, meaning they are at average risk for developing breast cancer. However, this is only an estimate based on available history provided on the patient's questionnaire. We encourage all patients to talk with their providers about these results, further recommendations for managing breast health, and appropriate supplemental screening options if the patient has dense breast tissue. Interpreting Radiologist: Karla Sidhu M.D. Resident/Fellow: Ean Alicea D.O. Electronically signed on: 08/28/2024 Entry Level Sales Consultant: VICENTE Transcribe Date/Time: Aug 27 2024 8:58A Dictated by: EAN ALICEA, DO This examination was interpreted and the report reviewed and electronically signed by: KARLA SIDHU MD on Aug 28 2024 12:48PM EST [id number] Normal [facility] 25(OH)D3 [facility] 2024 25-hydroxyvitamin D3 [Mass/Vol] 9.6 ng/mL Low 31.0-80.0 [facility] Comment on above: Order Comment: Speci men Type: BLOOD SPECIMEN Ordering Facility: [facility] Address: [address] [place] [address] Result Comment: Clas sification of 25 OH Vitamin D status: Deficiency/Insufficiency: < or = 30 ng/ml. Sufficiency/Optimal Levels: 31-80 ng/mL Toxicity: > 100 ng/mL. Test performed by chemiluminescent immunoassay. Performed By: #### 1 989-3 #### [facility] CLIA [id number] [address] [place] [address] [place] CBC W Auto Differential pane l (Bld)on 08-14-2024 Basophils (Bld) [#/Vol] 0.05 10*3/uL [facility] Basophils/100 WBC (Bld) 0.6 % [facility] Differential cell count method Nom (Bld) Auto [facility] Eosinophils (Bld) [#/Vol] 0.09 10*3/uL [facility] Eosinophils/100 WBC (Bld) 1.2 % [facility] Erythrocyte distribution width (RBC) [Ratio] 14.3 % 11.5 - 15.0 % [facility] Hematocrit (Bld) [Volume fraction] 45.4 % 36.0 - 46.0 % [facility] Hemoglobin (Bld) [Mass/Vol] 15.2 g/dL 11.5 - 15.5 g/dL [facility] Immature granulocytes (Bld) [#/Vol] 0.03 10*3/uL [facility] Immature granulocytes/100 WBC (Bld) 0.4 % [facility] Lymphocytes (Bld) [#/Vol] 2.79 10*3/uL [facility] Lymphocytes/100 WBC (Bld) 35.8 % [facility] MCH (RBC) [Entitic mass] 32.7 pg 26.0 - 34.0 pg [facility] MCHC (RBC) [Mass/Vol] 33.5 g/dL 30.5 - 36.0 g/dL [facility] MCV (RBC) [Entitic vol] 97.6 fL 80.0 - 100.0 fL [facility] Monocytes (Bld) [#/Vol] 0.47 10*3/uL [facility] Monocytes/100 WBC (Bld) 6 % [facility] Neutrophils (Bld) [#/Vol] 4.37 10*3/uL [facility] Neutrophils/100 WBC (Bld) 56 % [facility] Nucleated RBC (Bld) [#/Vol] NINF [facility] Nucleated RBC/100 WBC (Bld) [Ratio] 0 % /100 WBC [facility] Platelet mean volume (Bld) [Entitic vol] 9.4 fL 9.0 - 12.7 fL [facility] Platelets (Bld) [#/Vol] 285 10*3/uL [facility] RBC (Bld) [#/Vol] 4.65 10*6/uL 3.90 - 5.2 0 m/uL [facility] WBC (Bld) [#/Vol] 7.8 10*3/uL [facility] Basophils (Bld) [#/Vol] 0.05 10*3/uL Normal <0.11 [facility] Comment on above: Order Comment: Speci men Type: BLOOD SPECIMEN Ordering Facility: [facility] Address: [address] [place] [address] Performed By: #### 5 7021-8 #### [facility] CLIA [id number] [address] [place] [address] [place] Basophils/100 WBC (Bld) 0.6 % Normal [facility] Comment on above: Order Comment: Speci men Type: BLOOD SPECIMEN Ordering Facility: [facility] Address: [address] [place] [address] Performed By: #### 5 7021-8 #### [facility] CLIA [id number] [address] [place] [address] [place] Differential cell count method Nom (Bld) Auto Normal [facility] Comment on above: Order Comment: Speci men Type: BLOOD SPECIMEN Ordering Facility: [facility] Address: [address] [place] [address] Performed By: #### 5 7021-8 #### [facility] CLIA [id number] [address] [place] [address] [place] Eosinophils (Bld) [#/Vol] 0.09 10*3/uL Normal <0.46 [facility] Comment on above: Order Comment: Speci men Type: BLOOD SPECIMEN Ordering Facility: [facility] Address: [address] [place] [address] Performed By: #### 5 7021-8 #### [facility] CLIA [id number] [address] [place] [address] [place] Eosinophils/100 WBC (Bld) 1.2 % Normal [facility] Comment on above: Order Comment: Speci men Type: BLOOD SPECIMEN Ordering Facility: [facility] Address: [address] [place] [address] Performed By: #### 5 7021-8 #### [facility] CLIA [id number] [address] [place] [address] [place] Erythrocyte distribution width (RBC) [Ratio] 14.3 % Normal 11.5-15.0 [facility] Comment on above: Order Comment: Speci men Type: BLOOD SPECIMEN Ordering Facility: [facility] Address: [address] [place] [address] Performed By: #### 5 7021-8 #### [facility] CLIA [id number] [address] [place] [address] [place] Hematocrit (Bld) [Volume fraction] 45.4 % Normal 36.0-46.0 [facility] Comment on above: Order Comment: Speci men Type: BLOOD SPECIMEN Ordering Facility: [facility] Address: [address] [place] [address] Performed By: #### 5 7021-8 #### [facility] CLIA [id number] [address] [place] [address] [place] Hemoglobin (Bld) [Mass/Vol] 15.2 g/dL Normal 11.5-15.5 [facility] Comment on above: Order Comment: Speci men Type: BLOOD SPECIMEN Ordering Facility: [facility] Address: [address] [place] [address] Performed By: #### 5 7021-8 #### [facility] CLIA [id number] [address] [place] [address] [place] Immature granulocytes (Bld) [#/Vol] 0.03 10*3/uL Normal <0.10 [facility] Comment on above: Order Comment: Speci men Type: BLOOD SPECIMEN Ordering Facility: [facility] Address: [address] [place] [address] Performed By: #### 5 7021-8 #### [facility] CLIA [id number] [address] [place] [address] [place] Immature granulocytes/100 WBC (Bld) 0.4 % Normal [facility] Comment on above: Order Comment: Speci men Type: BLOOD SPECIMEN Ordering Facility: [facility] Address: [address] [place] [address] Performed By: #### 5 7021-8 #### [facility] CLIA [id number] [address] [place] [address] [place] Lymphocytes (Bld) [#/Vol] 2.79 10*3/uL Normal 1.00-4.00 [facility] Comment on above: Order Comment: Speci men Type: BLOOD SPECIMEN Ordering Facility: [facility] Address: [address] [place] [address] Performed By: #### 5 7021-8 #### [facility] CLIA [id number] [address] [place] [address] [place] Lymphocytes/100 WBC (Bld) 35.8 % Normal [facility] Comment on above: Order Comment: Speci men Type: BLOOD SPECIMEN Ordering Facility: [facility] Address: [address] [place] [address] Performed By: #### 5 7021-8 #### [facility] CLIA [id number] [address] [place] [address] [place] MCH (RBC) [Entitic mass] 32.7 pg Normal 26.0-34.0 [facility] Comment on above: Order Comment: Speci men Type: BLOOD SPECIMEN Ordering Facility: [facility] Address: [address] [place] [address] Performed By: #### 5 7021-8 #### [facility] CLIA [id number] [address] [place] [address] [place] MCHC (RBC) [Mass/Vol] 33.5 g/dL Normal 30.5-36.0 [facility] Comment on above: Order Comment: Speci men Type: BLOOD SPECIMEN Ordering Facility: [facility] Address: [address] [place] [address] Performed By: #### 5 7021-8 #### [facility] CLIA [id number] [address] [place] [address] [place] MCV (RBC) [Entitic vol] 97.6 fL Normal 80.0-100.0 [facility] Comment on above: Order Comment: Speci men Type: BLOOD SPECIMEN Ordering Facility: [facility] Address: [address] [place] [address] Performed By: #### 5 7021-8 #### [facility] CLIA [id number] [address] [place] [address] [place] Monocytes (Bld) [#/Vol] 0.47 10*3/uL Normal <0.87 [facility] Comment on above: Order Comment: Speci men Type: BLOOD SPECIMEN Ordering Facility: [facility] Address: [address] [place] [address] Performed By: #### 5 7021-8 #### [facility] CLIA [id number] [address] [place] [address] [place] Monocytes/100 WBC (Bld) 6.0 % Normal [facility] Comment on above: Order Comment: Speci men Type: BLOOD SPECIMEN Ordering Facility: [facility] Address: [address] [place] [address] Performed By: #### 5 7021-8 #### [facility] CLIA [id number] [address] [place] [address] [place] Neutrophils (Bld) [#/Vol] 4.37 10*3/uL Normal 1.45-7.50 [facility] Comment on above: Order Comment: Speci men Type: BLOOD SPECIMEN Ordering Facility: [facility] Address: [address] [place] [address] Performed By: #### 5 7021-8 #### [facility] CLIA [id number] [address] [place] [address] [place] Neutrophils/100 WBC (Bld) 56.0 % Normal [facility] Comment on above: Order Comment: Speci men Type: BLOOD SPECIMEN Ordering Facility: [facility] Address: [address] [place] [address] Performed By: #### 5 7021-8 #### [facility] CLIA [id number] [address] [place] [address] [place] Nucleated RBC (Bld) [#/Vol] 10*3/uL Normal <0.01 [facility] Comment on above: Order Comment: Speci men Type: BLOOD SPECIMEN Ordering Facility: [facility] Address: [address] [place] [address] Performed By: #### 5 7021-8 #### [facility] CLIA [id number] [address] [place] [address] [place] Nucleated RBC/100 WBC (Bld) [Ratio] 0.0 /100 WBC Normal [facility] Comment on above: Order Comment: Speci men Type: BLOOD SPECIMEN Ordering Facility: [facility] Address: [address] [place] [address] Performed By: #### 5 7021-8 #### [facility] CLIA [id number] [address] [place] [address] [place] Platelet mean volume (Bld) [Entitic vol] 9.4 fL Normal 9.0-12.7 [facility] Comment on above: Order Comment: Speci men Type: BLOOD SPECIMEN Ordering Facility: [facility] Address: [address] [place] [address] Performed By: #### 5 7021-8 #### [facility] CLIA [id number] [address] [place] [address] [place] Platelets (Bld) [#/Vol] 285 10*3/uL Normal 150-400 [facility] Comment on above: Order Comment: Speci men Type: BLOOD SPECIMEN Ordering Facility: [facility] Address: [address] [place] [address] Performed By: #### 5 7021-8 #### [facility] CLIA [id number] [address] [place] [address] [place] RBC (Bld) [#/Vol] 4.65 10*6/uL Normal 3.90-5.20 [facility] Comment on above: Order Comment: Speci men Type: BLOOD SPECIMEN Ordering Facility: [facility] Address: [address] [place] [address] Performed By: #### 5 7021-8 #### [facility] CLIA [id number] [address] [place] [address] [place] WBC (Bld) [#/Vol] 7.80 10*3/uL Normal 3.70-11.00 [facility] Comment on above: Order Comment: Speci men Type: BLOOD SPECIMEN Ordering Facility: [facility] Address: [address] [place] [address] Performed By: #### 5 7021-8 #### [facility] CLIA [id number] [address] [place] [address] [place] CNOVon 08-14-2024 CNOV Office Visit (FAMPWS ) FARNAZ UMANZOR ([id number]) 1970 F CHT Date Time Provider Department 08/14/24 9:00 AM STACIA VERDUGO During your visit today, we recorded the following information about you: Temperature Pulse Respiration Blood pressure 97.4 degrees 92/minute 18/minute 102/70 Weight Height 85.3 kg 1.635 m Stacia Verdugo PA-C 08/14/2024 9:36 AM Signed Chief Complaint Patient presents with: Yearly Exam HPI Farnaz Umanzor is a 54 year old female who presents here today for physical . Patient with hx as below. Annual Wellness Exam: - No significant health changes since last visit. - Denies counseling. - Sees psychiatrist Nisreen Orona every 6 months; reports stability. Headaches: - Occasional headaches; no changes or abnormalities noted. Tobacco Use: - Smokes approximately 1 pack per day. - First cigarette within 20 minutes of waking. - Interested in quitting; has attempted independently but struggles to succeed. - Expresses interest in nicotine replacement therapy. - Smokes marijuana; denies use of gummies or e-cigarettes. GERD: - Occasional heartburn 3-4 times per week. - Previously on Protonix 3 years ago; does not recall effectiveness. - Denies daily heartburn. Past medical history, appointments, medications, allergies reviewed. Previous Medical History PAST MEDICAL HISTORY Diagnosis Date Alkaline phosphatase elevation 06/20/2019 Alkaline phosphatase elevation 06/20/2019 W/u was negative. Bilateral carotid artery stenosis 07/03/2019 US 06/2019: Rt 20-40% and Lt 0-20% repeat in 3-5 yrs Bipolar 1 disorder (HCC) 06/19/2019 Chronic rhinitis 07/25/[address] Gant Chronic right shoulder pain 07/21/2013 Current moderate episode of major depressive disorder without prior episode (HCC) 07/21/2013 [facility] (generalized anxiety disorder) 06/19/2019 GERD without esophagitis 06/19/2019 Headache, unspecified headache type 06/19/2019 Ibuprofen overdose 07/21/2013 Marijuana use 06/19/2019 Mixed hyperlipidemia 06/20/2019 Pseudoseizure 04/06/2021 Dr. Maciel Smoker 06/19/2019 Started age 13 up to 3 PPD Previous Surgical History PAST SURGICAL HISTORY Procedure Laterality Date COLONOSCOPY 12/09/2021 EGD W/O BRSH SPEC VARICIES INJ 12/09/2021 HYSTERECTOMY HX 2008 for heavy bleeding OOPHORECTOMY, PART/TOTAL UNILAT/BILAT right removed, because of a cyst TONSILLECTOMY HX Family History FAMILY HISTORY Problem Relation Age of Onset None Other liver disease Colon Cancer Maternal Grandfather unknown if mother had colonoscopy Diabetes Mother Hyperlipidemia Mother other (not known) Father Diabetes Sister type 1 other (anancephaly) Brother Alzheimer's Disease Maternal Grandmother Coronary Artery Disease Maternal Grandmother 70's Breast Cancer Maternal Aunt other (stomach Cancer) Maternal Aunt other (accidental hanging) Brother Prostate Cancer No Family History Ovarian cancer No Family History Hypertension No Family History Kidney Disease No Family History Seizures No Family History Stroke No Family History Thyroid No Family History Patient Allergies ALLERGIES Allergen Reactions Bactrim [Sulfametho* Anaphylaxis Lamictal [Lamotrigi* Rash Cleocin [Clindamyci* Other: See Comments c diff Current Medications Current Outpatient Medications on File Prior to Visit Medication Sig risperiDONE (RISPERDAL) 1 mg tablet Take 1 mg in AM and 2 mg in PM. [facility] acetaminophen (TYLENOL EXTRA STRENGTH) 500 mg tablet Take 2 tablets by mouth every 6 hours as needed for pain. traZODone (DESYREL) 50 mg tablet Take 50 mg by mouth daily at bedtime. PARoxetine (PAXIL) 40 mg tablet Take 40 mg by mouth once daily. PARoxetine (PAXIL) 10 mg tablet Take 10 mg by mouth once daily. hydrOXYzine pamoate (VISTARIL) 50 mg capsule Take 50 mg by mouth three times daily as needed. (Patient taking differently: Take 50 mg by mouth two times a day as needed.) amantadine HCl (SYMMETREL) 100 mg capsule Take 1 capsule by mouth twice daily. From [facility] topiramate (TOPAMAX) 200 mg tablet Take 1 tablet by mouth twice daily. [facility] propranolol (INDERAL) 20 mg tablet Take 1 tablet by mouth once daily. peg 3350-Electrolytes (GOLYTELY) 236-22.74-6.74 -5.86 gram suspension Refer to printed prep instructions from your provider. pantoprazole (PROTONIX) 40 mg tablet Take 1 tablet by mouth once daily. loratadine (CLARITIN) 10 mg tablet Take 10 mg by mouth once daily. Take one tablet daily (Patient not taking: Reported on 08/14/2024) famotidine (PEPCID) 20 mg tablet Take 1 tablet by mouth twice daily. multivitamin tablet Take 1 tablet by mouth once daily. (Patient not taking: Reported on 08/14/2024) polyethylene glycol 3350 (MIRALAX) 17 gram/dose powder Take 17g in 8oz (more content not included)... Normal [facility] Cholesterol in LDL Direct as say [Mass/Vol]on 08-14-2024 Cholesterol in LDL [Mass/Vol] 106 mg/dL High <100 [facility] Comment on above: Order Comment: Speci men Type: BLOOD SPECIMEN Ordering Facility: [facility] Address: [address] [place] [address] Result Comment: <100 mg/dL, Optimal 100-129 mg/dL, Near optimal/above optimal 130-159 mg/dL, Borderline high 160-189 mg/dL, High >189 mg/dL, Very high Secondary prevention optimal LDL Cholesterol levels are recommended to be <70 mg/dL Performed By: #### 1 8262-6, 10686-0, 88987-0, 2842-3 #### [facility] CLIA [id number] [address] [place] [address] [place] Cholesterol in VLDL [Mass/Vol] 162 mg/dL High <30 [facility] Comment on above: Order Comment: Speci men Type: BLOOD SPECIMEN Ordering Facility: [facility] Address: [address] [place] [address] Performed By: #### 1 8262-6, 93794-6, 73848-5, 2842-3 #### [facility] CLIA [id number] [address] [place] [address] [place] Comprehensive metabolic 2000 panelon 08-14-2024 Albumin [Mass/Vol] 4.1 g/dL 3.9 - 4.9 g/dL [facility] ALP [Catalytic activity/Vol] 145 U/L High 34 - 123 U/L [facility] ALT [Catalytic activity/Vol] 17 U/L 7 - 38 U/L [facility] Anion gap [Moles/Vol] 14 mmol/L 8 - 15 mmol/L [facility] AST [Catalytic activity/Vol] 20 U/L 13 - 35 U/L [facility] Bilirubin [Mass/Vol] 0.2 mg/dL 0.2 - 1.3 mg/dL [facility] Calcium [Mass/Vol] 9.2 mg/dL 8.5 - 10. 2 mg/dL [facility] Chloride [Moles/Vol] 106 mmol/L 98 - 107 mmol/L [facility] CO2 [Moles/Vol] 20 mmol/L Low 22 - 30 mmol/L [facility] Creatinine [Mass/Vol] 1.03 mg/dL High 0.58 - 0.96 mg/dL [facility] GFR/1.73 sq M.predicted among non-blacks MDRD (S/P/Bld) [Vol rate/Area] 66 mL/min/{1.73_m2} - PINF [facility] Comment on above: Estimated Glomerular Filtration Rate (eGFR) is calculated using the 2020 CKD-EPI creatinine equation. This equation utilizes serum creatinine, sex, and age as parameters. The creatinine assay has traceable calibration to isotope dilution-mass spectrometry. Refer to KDIGO guidelines for clinical interpretation. In patients with unstable renal function, e.g. those with acute kidney injury, the eGFR may not accurately reflect actual GFR. Glucose [Mass/Vol] 135 mg/dL High 74 - 99 mg/dL [facility] Comment on above: The [place] Diabete s Association (ADA) provides guidance for cutoff values for fasting glucose and random glucose. The ADA defines fasting as no caloric intake for at least 8 hours. Fasting plasma glucose results between 100 to 125 mg/dL indicate increased risk for diabetes (prediabetes). Fasting plasma glucose results greater than or equal to 126 mg/dL meet the criteria for diagnosis of diabetes. In the absence of unequivocal hyperglycemia, results should be confirmed by repeat testing. In a patient with classic symptoms of hyperglycemia or hyperglycemic crisis, random plasma glucose results greater than or equal to 200 mg/dL meet the criteria for diagnosis of diabetes. Reference: Standards of Medical Care in Diabetes 2016, [place] [employer]. Diabetes Care. 2016.39(Suppl 1). Interpretation and review of laboratory results Abnormal [facility] Potassium [Moles/Vol] 3.3 mmol/L Low 3.7 - 5.1 mmol/L [facility] Protein [Mass/Vol] 7.2 g/dL 6.3 - 8.0 g/dL [facility] Sodium [Moles/Vol] 140 mmol/L 136 - 144 mmol/L [facility] Urea nitrogen [Mass/Vol] 7 mg/dL 7 - 21 mg/dL [facility] Albumin [Mass/Vol] 4.1 g/dL Normal 3.9-4.9 [facility] Comment on above: Order Comment: Speci men Type: BLOOD SPECIMEN Ordering Facility: [facility] Address: [address] [place] [address] Performed By: #### 1 8262-6, 39382-4, 94501-2, 2842-3 #### [facility] CLIA [id number] [address] [place] [address] [place] ALP [Catalytic activity/Vol] 145 U/L High 34-123 [facility] Comment on above: Order Comment: Speci men Type: BLOOD SPECIMEN Ordering Facility: [facility] Address: [address] [place] [address] Performed By: #### 1 8262-6, 02362-3, 34866-9, 2842-3 #### [facility] CLIA [id number] [address] [place] [address] [place] ALT [Catalytic activity/Vol] 17 U/L Normal 7-38 [facility] Comment on above: Order Comment: Speci men Type: BLOOD SPECIMEN Ordering Facility: [facility] Address: [address] [place] [address] Performed By: #### 1 8262-6, 49045-4, 37277-6, 2842-3 #### [facility] CLIA [id number] [address] [place], [place] [id number] [place] Anion gap [Moles/Vol] 14 mmol/L Normal 8-15 [facility] Comment on above: Order Comment: Speci men Type: BLOOD SPECIMEN [facility]ing Facility: [facility] [facility] Address: [address] [place] [address] Performed By: #### 1 8262-6, 65513-7, 77038-2, 2842-3 #### [facility] CLIA [id number] [address] [place] [address] [place] AST [Catalytic activity/Vol] 20 U/L Normal 13-35 [facility] Comment on above: Order Comment: Speci men Type: BLOOD SPECIMEN Ordering Facility: [facility] Address: [address] [place] [address] Performed By: #### 1 8262-6, 48718-1, 48838-8, 2842-3 #### [facility] CLIA [id number] [address] [place] [address] [place] Bilirubin [Mass/Vol] 0.2 mg/dL Normal 0.2-1.3 [facility] Comment on above: Order Comment: Speci men Type: BLOOD SPECIMEN Ordering Facility: [facility] Address: [address] [place] [address] Performed By: #### 1 8262-6, 33031-9, 13740-6, 2842-3 #### [facility] CLIA [id number] [address] [place] [address] [place] Calcium [Mass/Vol] 9.2 mg/dL Normal 8.5-10.2 [facility] Comment on above: Order Comment: Speci men Type: BLOOD SPECIMEN Ordering Facility: [facility] Address: [address] [place] [address] Performed By: #### 1 8262-6, 22967-0, 65200-3, 2842-3 #### [facility] CLIA [id number] [address] [place] [address] [place] Chloride [Moles/Vol] 106 mmol/L Normal 98-107 [facility] Comment on above: Order Comment: Speci men Type: BLOOD SPECIMEN Ordering Facility: [facility] Address: [address] [place] [address] Performed By: #### 1 8262-6, 91708-6, 62810-0, 2842-3 #### [facility] CLIA [id number] [address] [place] [address] [place] CO2 [Moles/Vol] 20 mmol/L Low 22-30 [facility] Comment on above: Order Comment: Speci men Type: BLOOD SPECIMEN Ordering Facility: [facility] Address: [address] [place] [address] Performed By: #### 1 8262-6, 95563-8, 12252-2, 2842-3 #### [facility] CLIA [id number] [address] [place] [address] [place] Creatinine [Mass/Vol] 1.03 mg/dL High 0.58-0.96 [facility] Comment on above: Order Comment: Speci men Type: BLOOD SPECIMEN Ordering Facility: [facility] Address: [address] [place] [address] Performed By: #### 1 8262-6, 04086-0, 22808-8, 2842-3 #### [facility] CLIA [id number] [address] [place] [address] [place] Creatinine and Glomerular filtration rate.predicted panel (S/P/Bld) 66 mL/min/1.73m??? Normal >=60 [facility] Comment on above: Order Comment: Speci men Type: BLOOD SPECIMEN Ordering Facility: [facility] Address: [address] [place] [address] Result Comment: Ghazala mated Glomerular Filtration Rate (eGFR) is calculated using the 2020 CKD-EPI creatinine equation. This equation utilizes serum creatinine, sex, and age as parameters. The creatinine assay has traceable calibration to isotope dilution-mass spectrometry. Refer to KDIGO guidelines for clinical interpretation. In patients with unstable renal function, e.g. those with acute kidney injury, the eGFR may not accurately reflect actual GFR. Performed By: #### 1 8262-6, 94683-9, 72228-7, 2842-3 #### [facility] CLIA [id number] [address] [address] [place] Glucose [Mass/Vol] 135 mg/dL High 74-99 [facility] Comment on above: Order Comment: Tammy wood Type: BLOOD SPECIMEN Ordering Facility: [facility] Address: [address] [place] [address] Result Comment: The [place] Diabetes Association (ADA) provides guidance for cutoff values for fasting glucose and random glucose. The ADA defines fasting as no caloric intake for at least 8 hours. Fasting plasma glucose results between 100 to 125 mg/dL indicate increased risk for diabetes (prediabetes). Fasting plasma glucose results greater than or equal to 126 mg/dL meet the criteria for diagnosis of diabetes. In the absence of unequivocal hyperglycemia, results should be confirmed by repeat testing. In a patient with classic symptoms of hyperglycemia or hyperglycemic crisis, random plasma glucose results greater than or equal to 200 mg/dL meet the criteria for diagnosis of diabetes. Reference: Standards of Medical Care in Diabetes 2016, [place] Diabetes Association. Diabetes Care. 2016.39(Suppl 1). Performed By: #### 1 8262-6, 25681-4, 56303-3, 2842-3 #### [facility] CLIA [id number] [address] [place] [address] [place] Potassium [Moles/Vol] 3.3 mmol/L Low 3.7-5.1 [facility] Comment on above: Order Comment: Tammy wood Type: BLOOD SPECIMEN Ordering Facility: [facility] Address: [address] [place] [address] Performed By: #### 1 8262-6, 03805-3, 29787-9, 2842-3 #### [facility] CLIA [id number] [address] [place] [address] [place] Protein [Mass/Vol] 7.2 g/dL Normal 6.3-8.0 [facility] Comment on above: Order Comment: Speci men Type: BLOOD SPECIMEN Ordering Facility: [facility] Address: [address] [place] [address] Performed By: #### 1 8262-6, 02531-8, 67004-4, 2842-3 #### [facility] CLIA [id number] [address] [place] [address] [place] Sodium [Moles/Vol] 140 mmol/L Normal 136-144 [facility] Comment on above: Order Comment: Speci men Type: BLOOD SPECIMEN Ordering Facility: [facility] Address: [address] [place] [address] Performed By: #### 1 8262-6, 07114-4, 06304-6, 2842-3 #### [facility] CLIA [id number] [address] [place] [address] [place] Urea nitrogen [Mass/Vol] 7 mg/dL Normal 7-21 [facility] Comment on above: Order Comment: Speci men Type: BLOOD SPECIMEN Ordering Facility: [facility] Address: [address] [place] [address] Performed By: #### 1 8262-6, 14548-6, 04233-4, 2842-3 #### [facility] CLIA [id number] [address] [place] [address] [place] HBV surface Ab Ql (S)on 07-25 HBV surface Ab Qn (S) mIU/mL [facility] Comment on above: <8 mIU/mL: No serolo gical evidence of immunity to Hepatitis B Virus. >/= 8 to <12 mIU/mL: No serological evidence of immunity to Hepatitis B Virus. >/= 12 mIU/mL: Consistent with serological evidence of immunity to Hepatitis B Virus. [facility] HBV surface Ab Qn (S) <8.00 Normal [facility] Comment on above: Order Comment: Speci men Type: BLOOD SPECIMEN Ordering Facility: [facility] Address: [address] [place] [address] Result Comment: <8 m IU/mL: No serological evidence of immunity to Hepatitis B Virus. >/= 8 to <12 mIU/mL: No serological evidence of immunity to Hepatitis B Virus. >/= 12 mIU/mL: Consistent with serological evidence of immunity to Hepatitis B Virus. Performed By: #### 2 2322-2 #### [facility] CLIA [id number] [address] [place] [address] OF [facility] HBV surface Ab Ser Qlon 07-25 HBV surface Ab Ql (S) Negative Normal [facility] Comment on above: Order Comment: Speci men Type: BLOOD SPECIMEN Ordering Facility[facility] Address: [address] [place] [address] Result Comment: No s erological evidence of immunity to Hepatitis B Virus. Performed By: #### 2 2322-2 #### [facility] CLIA [id number] [address] [place] [address] OF [place] HEPATITIS B SURFACE ANTIBODY on 08-14-2024 HBV surface Ab Ql (S) Negative [facility] Comment on above: No serological evide nce of immunity to Hepatitis B Virus. HbA1c (Bld)on 08-14-2024 Average glucose Estimated from glycated hemoglobin (Bld) [Mass/Vol] 126 mg/dL [facility] Comment on above: eAG: (Estimated aver age glucose) is a calculated value from HgbA1c and is community relations representative of the average blood glucose level in the last 2-3 month period. HbA1c (Bld) [Mass fraction] 6 % High 4.3 - 5.6 % [facility] Comment on above: [place] Diabetes As sociation guidelines indicate that patients with HgbA1c in the range 5.7-6.4% are at increased risk for development of diabetes, and intervention by lifestyle modification may be beneficial. HgbA1c greater or equal to 6.5% is considered diagnostic of diabetes. Interpretation and review of laboratory results Abnormal [facility] Average glucose Estimated from glycated hemoglobin (Bld) [Mass/Vol] 126 mg/dL Normal [facility] Comment on above: Order Comment: Speci men Type: BLOOD SPECIMENOrdering Facility: [facility] Address: [address] [place] [address] Result Comment: eAG: (Estimated average glucose) is a calculated value from HgbA1c and is community relations representative of the average blood glucose level in the last 2-3 month period. Performed By: #### 5 5454-3 ####[facility] [id number] [place] [address] [place] HbA1c (Bld) [Mass fraction] 6.0 % High 4.3-5.6 [facility] Comment on above: Order Comment: Speci men Type: BLOOD SPECIMENOrdering Facility: [facility] Address: [address] [place] [address] Result Comment: [place] Diabetes Association guidelines indicate that patients with HgbA1c in the range 5.7-6.4% are at increased risk for development of diabetes, and intervention by lifestyle modification may be beneficial. HgbA1c greater or equal to 6.5% is considered diagnostic of diabetes. Performed By: #### 5 5454-3 ####[facility] [id number] [place] [address] [place] Lipid 1996 panelon 5 Cholesterol [Mass/Vol] 295 mg/dL High <200 [facility] Comment on above: Order Comment: Speci men Type: BLOOD SPECIMEN Ordering Facility: [facility] Address: [address] [place], [place] [id number] Result Comment: <200 mg/dL, Desirable 200-239 mg/dL, Borderline high >239 mg/dL, High Performed By: #### 1 8262-6, 59584-8, 51731-2, 2842-3 #### [facility] CLIA [id number] [address] [place] [address] [place] Cholesterol in HDL [Mass/Vol] 27 mg/dL Low >39 [facility] Comment on above: Order Comment: Speci men Type: BLOOD SPECIMEN Ordering Facility: [facility] Address: [address] [place] [address] Result Comment: 40-5 9 mg/dL, Acceptable >59 mg/dL, High: Negative risk factor for coronary heart disease <40 mg/dL, Low: Positive risk factor for coronary heart disease Performed By: #### 1 8262-6, 32362-0, 93137-6, 2842-3 #### [facility] CLIA [id number] [address] [place], [place] [address] [place] Cholesterol in LDL [Mass/Vol] Normal [facility] Comment on above: Order Comment: Speci men Type: BLOOD SPECIMEN Ordering Facility: [facility] Address: [address] [place] [address] Result Comment: Unab le to calculate due to elevated Triglycerides. See LDL-Chol, Direct. <100 mg/dL, Optimal 100-129 mg/dL, Near optimal/above optimal 130-159 mg/dL, Borderline high 160-189 mg/dL, High >189 mg/dL, Very high Secondary prevention optimal LDL Cholesterol levels are recommended to be <70 mg/dL LDL cholesterol is calculated using the [place]-NIH equation. Performed By: #### 1 8262-6, 34896-1, 31182-8, 2842-3 #### [facility] CLIA [id number] [address] [place], [place] [id number] [place] Cholesterol in LDL/Cholesterol in HDL [Mass ratio] Normal [facility] Comment on above: Order Comment: Speci men Type: BLOOD SPECIMEN Ordering Facility: [facility] Address: [address] [place] [address] Result Comment: Unab le to calculate due to elevated Triglycerides. Reference: 1. National Cholesterol Education Program ATP III Guideline At-A-Glance Quick Desk Reference: National Heart, Lung, and Blood [place]. National Institutes of Health. 2001: NIH Publication No. 01-3305. 2. An International Atherosclerosis Society position paper: global recommendations for the management of dyslipidemia: executive summary, Atherosclerosis. 2014: 232(2):410-413. Performed By: #### 1 8262-6, 04015-2, 97177-0, 2842-3 #### [facility] CLIA [id number] [address] [address] [place] Cholesterol in VLDL [Mass/Vol] Normal [facility] Comment on above: Order Comment: Speci men Type: BLOOD SPECIMEN Ordering Facility: [facility] Address: [address] [place] [address] Result Comment: Unab le to calculate due to elevated Triglycerides. See LDL-Chol, Direct. Performed By: #### 1 8262-6, 77544-7, 29086-8, 2842-3 #### [facility] CLIA [id number] [address] [place] [address] [place] Cholesterol non HDL [Mass/Vol] 268 mg/dL High <130 [facility] Comment on above: Order Comment: Speci men Type: BLOOD SPECIMEN Ordering Facility: [facility] Address: [address] [place] [address] Result Comment: <130 mg/dL, Optimal 130-159 mg/dL, Near optimal/above optimal 160-189 mg/dL, Borderline high 190-219 mg/dL, High >219 mg/dL, Very high Secondary prevention optimal non HDL Cholesterol levels are recommended to be <100 mg/dL Performed By: #### 1 8262-6, 20033-6, 83377-5, 2842-3 #### [facility] CLIA [id number] [address] [place] [id number] [place] Cholesterol.total/ Cholesterol in HDL [Mass ratio] 10.93 {ratio} High <5.10 [facility] Comment on above: Order Comment: Speci men Type: BLOOD SPECIMEN Ordering Facility: [facility] Address: [address] [place] [address] Performed By: #### 1 8262-6, 57776-7, 76423-6, 2842-3 #### [facility] CLIA [id number] [address] [place] [id number] [place] FASTING TIME 12 hrs Normal [facility] Comment on above: Order Comment: Speci men Type: BLOOD SPECIMEN Ordering Facility: [facility] Address: [address] [place] [address] Performed By: #### 1 8262-6, 91358-3, 98640-4, 2842-3 #### [facility] CLIA [id number] [address] [place] [id number] [place] Triglyceride [Mass/Vol] 879 mg/dL High <150 [facility] Comment on above: Order Comment: Speci men Type: BLOOD SPECIMEN Ordering Facility: [facility] Address: [address] [place] [address] Result Comment: <150 mg/dL, Normal 150-199 mg/dL, Borderline high 200-499 mg/dL, High >499 mg/dL, Very high Performed By: #### 1 8262-6, 23699-8, 59141-1, 2842-3 #### [facility] CLIA [id number] [address] [place] [id number] [place] Prolactin SerPl-mCncon 08-14 Prolactin [Mass/Vol] 38.8 ng/mL High 4.4-33.8 [facility] Comment on above: Order Comment: Speci men Type: BLOOD SPECIMEN Ordering Facility: [facility] Address: [address] [place] [address] Result Comment: Prol actin test is performed using the [employer] Electrochemiluminescence Immunoassay method. Results obtained with different methods or kits cannot be used interchangeably. Performed By: #### 1 8262-6, 68225-8, 39152-7, 2842-3 #### [facility] CLIA [id number] [address] [address] [place] COLONOSCOPY SCREENINGon 11-23 [facility] EGD DIAGNOSTICon 12-09-2021 [facility] HEPATOBILIARY W EF AND/OR RXon 08-13-2021 [facility] ALPHA FETOPROTEIN BLon 08-07 AFP [Mass/Vol] ng/mL <11.0 ng/mL [facility] AMYLASE BLDon 08-07-2021 Amylase [Catalytic activity/Vol] 30 U/L 30 - 104 U/L [facility] C-REACTIVE PROTEIN (CRP)on 0 08-07-2021 CRP [Mass/Vol] 3.4 mg/dL High <0.9 mg/dL [facility] Comprehensive metabolic 2000 panelon 08-07-2021 Albumin [Mass/Vol] 4.2 g/dL 3.9 - 4.9 g/dL [facility] ALP [Catalytic activity/Vol] 150 U/L High 34 - 123 U/L [facility] ALT [Catalytic activity/Vol] 11 U/L 7 - 38 U/L [facility] Anion gap [Moles/Vol] 10 mmol/L 9 - 18 mmol/L [facility] AST [Catalytic activity/Vol] 15 U/L 13 - 35 U/L [facility] Bilirubin [Mass/Vol] mg/dL Low 0.2 - 1.3 mg/dL [facility] Calcium [Mass/Vol] 9.3 mg/dL 8.5 - 10. 2 mg/dL [facility] Chloride [Moles/Vol] 108 mmol/L High 97 - 105 mmol/L [facility] CO2 [Moles/Vol] 22 mmol/L 22 - 30 mmol/L [facility] Creatinine [Mass/Vol] 1.05 mg/dL High 0.58 - 0.96 mg/dL [facility] Estimated Glomerular Filtration Rate 66 mL/min/1.73m >=60 mL/min/1.73m [facility] Glucose [Mass/Vol] 104 mg/dL High 74 - 99 mg/dL [facility] Potassium [Moles/Vol] 3.9 mmol/L 3.7 - 5.1 mmol/L [facility] Protein [Mass/Vol] 7.0 g/dL 6.3 - 8.0 g/dL [facility] Sodium [Moles/Vol] 140 mmol/L 136 - 144 mmol/L [facility] Urea nitrogen [Mass/Vol] 8 mg/dL 7 - 21 mg/dL [facility] ESR Westergren method (Bld) [Velocity]on 08-07-2021 ESR (Bld) [Velocity] 15 mm/h 0 - 20 mm/hr [facility] GGT BLDon 08-07-2021 Gamma glutamyl transferase [Catalytic activity/Vol] 27 U/L 6 - 46 U/L [facility] LIPASE BLDon 08-07-2021 Lipase [Catalytic activity/Vol] 22 U/L 16 - 61 U/L [facility] RHEUMATOID FACTOR BLon 08-07 Rheumatoid factor Qn [IU]/mL <16 IU/mL [facility] T4 FREE/FREE THYROXon 2021 Free T4 [Mass/Vol] 0.8 ng/dL Low 0.9 - 1.7 ng/dL [facility] TSH [facility] 08-07-2021 TSH Qn 2.030 m[IU]/L 0.270 - 4.200 mIU/L [facility] Absolute lymphocyte counton 07-27-2021 Lymphocytes Auto (Unsp spec) [#/Vol] 2.75 10*3/uL 0.83-4.51 [facility] Work Phone: Basophil percentageon 2021 Basophils/100 WBC (Bld) 0.8 % 0-1 [facility] Work Phone: Bilirubin [Mass/Vol] 0.20 mg/dL 0.20-1.00 [facility] Work Phone: Comment on above: For patients on eltr ombopag therapy, use of Dimension [place] TBIL is not recommended. Chloride [Moles/Vol] 106 mmol/L 98-107 [facility] Work Phone: Eosinophils/100 WBC (Bld) 2.8 % 0-5 [facility] Work Phone: Glucose [Mass/Vol] 115 mg/dL 74-106 [facility] Work Phone: Comment on above: Fasting Glucose resu lt from 100 to 125 mg/dL suggests IMPAIRED HOMEOSTASIS per A.D.A. criteria. Neutrophils (Bld) [#/Vol] 3.6 10*3/uL 2.0-7.7 [facility] Work Phone: Neutrophils/100 WBC (Bld) 50.3 % 47-70 [facility] Work Phone: Potassium [Moles/Vol] 3.8 mmol/L 3.5-5.1 [facility] Work Phone: Protein [Mass/Vol] 7.4 g/dL 6.4-8.2 [facility] Work Phone: Sodium [Moles/Vol] 137 mmol/L 136-145 [facility] Work Phone: WBC (Bld) [#/Vol] 7.1 10*3/uL 4.4-11.0 [facility] Work Phone: Blood erythrocytes count (nu mber/volume)on 07-27-2021 RBC (Bld) [#/Vol] 4.66 10*6/uL 4.2-5.4 [facility] Work Phone: Blood hemoglobin measurement (mass/volume)on 07-27-2021 Hemoglobin (Bld) [Mass/Vol] 14.7 g/dL 12.0-15.0 [facility] Work Phone: Blood lymphocytes/100 leukoc yteson 07-27-2021 Lymphocytes/100 WBC (Bld) 38.5 % 19-41 [facility] Work Phone: Blood monocytes/100 leukocyt eson 07-27-2021 Monocytes/100 WBC (Bld) 7.3 % 0-10 [facility] Work Phone: [phone] Blood platelet mean volumeon 07-27-2021 Platelet mean volume (Bld) [Entitic vol] 8.8 fL 6.2-12.0 [facility] Work Phone: Determination of erythrocyte mean corpuscular volume (MCV)on 07-27-2021 MCV (RBC) [Entitic vol] 92.3 fL 81-99 [facility] Work Phone: Hematocrit Auto (Bld) [Volum e fraction]on 07-27-2021 Hematocrit (Bld) [Volume fraction] 43.0 % 37-47 [facility] Work Phone: [phone] Laboratory - Chemistry and C hemistry - challengeon 07-27-2021 ALP [Catalytic activity/Vol] 135 U/L 45-117 [facility] Work Phone: [phone] ALT [Catalytic activity/Vol] 23 U/L 13-56 [facility] Work Phone: [phone] CO2 [Moles/Vol] 24.0 mmol/L 21.0-32.0 [facility] Work Phone: [phone] Globulin (S) [Mass/Vol] 4.0 g/dL 2.2-4.2 [facility] Work Phone: [phone] Lipase [Catalytic activity/Vol] 111 U/L 73-393 [facility] Work Phone: [phone] Urea nitrogen/Creatinin e [Mass ratio] 12.0 mg/mg 10-20 [facility] Work Phone: [phone] Laboratory - Hematology and Cell countson 07-27-2021 Erythrocyte distribution width (RBC) [Entitic vol] 44.0 fL 35.1-43.9 [facility] Work Phone: [phone] Erythrocyte distribution width (RBC) [Ratio] 13.1 % 11.6-14.6 [facility] Work Phone: [phone] Immature granulocytes/100 WBC (Bld) 0.300 % 0.0-0.9 [facility] Work Phone: [phone] Comment on above: IG% - Immature Granu locytes (promyelocytes, myelocytes and metamyelocytes) > 1% indicates that a LEFT SHIFT is Present. MCH (RBC) [Entitic mass] 31.5 pg 27.0-32.0 [facility] Work Phone: [phone] Nucleated RBC/100 WBC (Bld) [Ratio] 0 % 0-5 [facility] Work Phone: [phone] MCHC Auto (RBC) [Mass/Vol]on 07-27-2021 MCHC (RBC) [Mass/Vol] 34.2 g/dL 32-36 [facility] Work Phone: [phone] Panel Informationon 07-27 Estimated Creatinine Clearance Calc 52.70 ml/min [facility] Work Phone: Estimated GFR (MDRD) Amer 69 mL/min >60 [facility] Work Phone: Comment on above: GFR Calc Estimated GFR (MDRD) Non-Af Amer 57 mL/min >60 [facility] Work Phone: Comment on above: Non- GFR Calc Platelets bldon 07-27-2021 Platelets (Bld) [#/Vol] 261 10*3/uL 150-450 [facility] Work Phone: Serum or plasma albumin yuriy urement (mass/volume)on 07-27-2021 Albumin [Mass/Vol] 3.4 g/dL 3.2-5.0 [facility] Work Phone: Serum or plasma albumin/glob ulin mass ratioon 07-27-2021 Albumin/Globulin [Mass ratio] 0.8 {ratio} 0.9-2.4 [facility] Work Phone: Serum or plasma calcium yuriy urement (mass/volume)on 07-27-2021 Calcium [Mass/Vol] 9.7 mg/dL 8.5-10.1 [facility] Work Phone: Serum or plasma creatinine m easurement (mass/volume)on 07-27-2021 Creatinine [Mass/Vol] 1.08 mg/dL 0.55-1.02 [facility] Work Phone: Comment on above: The validity of the calculated GFR & GFRAA in patients over 70 years has not been determined. Clinical correlation is essential. Serum or plasma urea nitroge n measurement (mass/volume)on 07-27-2021 Urea nitrogen [Mass/Vol] 13 mg/dL 7-18 [facility] Work Phone: Thin prep Papanicolaou smear with manual screeningon 07-27-2021 Thin prep Papanicolaou smear with manual screening 25 U/L 15-37 [facility] Work Phone: Thin prep Papanicolaou smear with manual screening 7 5-15 [facility] Work Phone: Vital Signs Date Time Vital Sign Value Performing Clinician Facility 08-14-2024 08:46-0400 Body height 163.5 cm Stacia Verdugo PA-C Work Phone: [facility] 08-14-2024 08:46-0400 Body mass index (BMI) [Ratio] 31.9 kg/m2 Stacia Verdugo PA-C Work Phone: [facility] 08-14-2024 08:46-0400 Body temperature 97.39 [degF] Stacia Verdugo PA-C Work Phone: [facility] 08-14-2024 08:46-0400 Body weight 85.28 kg Stacia Verdugo PA-C Work Phone: [facility] 08-14-2024 08:46-0400 Diastolic blood pressure 70 mm[Hg] Stacia Verdugo PA-C Work Phone: [facility] 08-14-2024 08:46-0400 Heart rate 92 /min Stacia Verdugo PA-C Work Phone: [facility] 08-14-2024 08:46-0400 Respiratory rate 18 /min Stacia Verdugo PA-C Work Phone: [facility] 08-14-2024 08:46-0400 SaO2% (BldA) [Mass fraction] 96 % Stacia Verdugo PA-C Work Phone: [facility] 08-14-2024 08:46-0400 Systolic blood pressure 102 mm[Hg] Stacia Verdugo PA-C Work Phone: [facility] 12-09-2021 14:01-0400 Diastolic blood pressure 90 mm[Hg] Darcy Collins MD Work Phone: [facility] 12-09-2021 14:01-0400 Heart rate 92 /min Darcy Collins MD Work Phone: [facility] 12-09-2021 14:01-0400 Respiratory rate 16 /min Darcy Collins MD Work Phone: [facility] 12-09-2021 14:01-0400 SaO2% (BldA) [Mass fraction] 96 % Darcy Collins MD Work Phone: [facility] 12-09-2021 14:01-0400 Systolic blood pressure 110 mm[Hg] Darcy Collins MD Work Phone: [facility] 12-09-2021 13:45-0400 Body temperature 97.3 [degF] Darcy Collins MD Work Phone: [facility] 12-09-2021 13:12-0400 Body height 160 cm Darcy Collins MD Work Phone: [facility] 12-09-2021 13:12-0400 Body weight 88.45 kg Darcy Collins MD Work Phone: [facility] 11-10-2021 09:38-0400 Body height 162 cm Aleah Peralta SPINAL SURGEON.GENERAL OPERATIONS AGENT Work Phone: [facility] 11-10-2021 09:38-0400 Body weight 88.45 kg Aleah Peralta SPINAL SURGEON.GENERAL OPERATIONS AGENT Work Phone: [facility] 11-10-2021 09:38-0400 Diastolic blood pressure 70 mm[Hg] Aleah Peralta SPINAL SURGEON.GENERAL OPERATIONS AGENT Work Phone: [facility] 11-10-2021 09:38-0400 Heart rate 83 /min Aleah Peralta SPINAL SURGEON.GENERAL OPERATIONS AGENT Work Phone: [facility] 11-10-2021 09:38-0400 SaO2% (BldA) [Mass fraction] 98 % Aleah Peralta SPINAL SURGEON.GENERAL OPERATIONS AGENT Work Phone: [facility] 11-10-2021 09:38-0400 Systolic blood pressure 110 mm[Hg] Aleah Peralta SPINAL SURGEON.GENERAL OPERATIONS AGENT Work Phone: [facility] 10-08-2021 13:10-0400 Body height 161.3 cm John Sadler MD Work Phone: [facility] 10-08-2021 13:10-0400 Body weight 89.81 kg John Sadler MD Work Phone: [facility] 10-08-2021 13:10-0400 Diastolic blood pressure 78 mm[Hg] John Sadler MD Work Phone: [facility] 10-08-2021 13:10-0400 Heart rate 84 /min John Sadler MD Work Phone: [facility] 10-08-2021 13:10-0400 Respiratory rate 16 /min John Sadler MD Work Phone: [facility] 10-08-2021 13:10-0400 Systolic blood pressure 112 mm[Hg] John Sadler MD Work Phone: [facility] 08-07-2021 10:19-0400 Body weight 86.64 kg John Sadler MD Work Phone: [facility] 08-07-2021 10:19-0400 Diastolic blood pressure 68 mm[Hg] John Sadler MD Work Phone: [facility] 08-07-2021 10:19-0400 Heart rate 72 /min John Sadler MD Work Phone: [facility] 08-07-2021 10:19-0400 Respiratory rate 16 /min John Sadler MD Work Phone: [facility] 08-07-2021 10:19-0400 Systolic blood pressure 98 mm[Hg] John Sadler MD Work Phone: [facility] 07-27-2021 15:42-0400 Diastolic blood pressure 80 mm[Hg] [facility] Work Phone: 07-27-2021 15:42-0400 Systolic blood pressure 113 mm[Hg] [facility] Work Phone: 07-27-2021 11:33-0400 Body height 160.02 cm [facility] Work Phone: 07-27-2021 11:33-0400 Body mass index (BMI) [Ratio] 34 kg/m2 [facility] Work Phone: 07-27-2021 11:33-0400 Body temperature 96.8 [degF] [facility] Work Phone: 07-27-2021 11:33-0400 Body weight 87.08 kg [facility] Work Phone: 07-27-2021 11:33-0400 Heart rate 94 /min [facility] Work Phone: 07-27-2021 11:33-0400 Respiratory rate 18 /min [facility] Work Phone: 07-27-2021 11:33-0400 SaO2% (BldA) [Mass fraction] 100 % [facility] Work Phone: Encounters Encounter Date Encounter Type Care Provider Facility Start: 09-29-2024 ambulatory Stacia PEREIRA Facility:[facility] Start: 09-20-2024 End: 09-20-2024 Follow-up encounter Stacia Verdugo PA-C Work Phone: [facility] Start: 09-19-2024 End: 09-19-2024 ambulatory STACIA VERDUGO Facility:[facility] Start: 08-28-2024 End: 08-28-2024 Follow-up encounter Stacia Verdugo PA-C Work Phone: [facility] Start: 08-27-2024 [facility] Start: 08-27-2024 End: 08-27-2024 Subsequent hospital visit by physician Screen Mammo [facility] Comment on above: Encounter for screen ing mammogram for breast cancer [Z12.31] Start: 08-15-2024 End: 08-15-2024 Follow-up encounter Stacia Verdugo PA-C Work Phone: [facility] [place] Start: 08-14-2024 Encounter for antibo dy response examination STACIA VERDUGO [facility] Start: 08-14-2024 Encounter for genera l adult medical examination without abnormal findings STACIA VERDUGO [facility] Start: 08-14-2024 End: 08-14-2024 Patient encounter procedure Stacia Verdugo PA-C Work Phone: [facility] Comment on above: Well adult exam (Prabha jamar Dx); Encounter for screening mammogram for breast cancer; Immunity status testing; Mixed hyperlipidemia; Gastroesophageal reflux disease without esophagitis; YANN (generalized anxiety disorder); Current moderate episode of major depressive disorder without prior episode (HCC); Bipolar 1 disorder (HCC); Marijuana use; Migraine without aura and without status migrainosus, not intractable; Smoker; GERD without esophagitis; Obesity, Class I, BMI 30-34.9; Screening for diabetes mellitus; Screening for lung cancer Start: 08-14-2024 End: 08-14-2024 Patient encounter status Stacia Verdugo PA-C Work Phone: [facility] Start: 08-14-2024 End: 08-14-2024 ambulatory JOHN SADLER Facility:[facility] Start: 09-14-2023 ambulatory John veliz MD Work Phone: [facility] [place] Start: 01-20-2022 Refill Aleah Peralta APRN.CNP Work Phone: Gastroenterology Comment on above: Refill Request Start: 12-09-2021 End: 12-09-2021 Subsequent hospital visit by physician Darcy Collins MD Work Phone: Ambulatory Surgery Comment on above: LUQ pain [R10.12] Start: 11-25-2021 Refill Stacia capps PA-C Work Phone: [facility] [place] Comment on above: Refill Request Start: 11-24-2021 Telephone encounter John Sadler MD Work Phone: [facility] [place] Comment on above: Results Start: 11-20-2021 End: 11-20-2021 Subsequent hospital visit by physician Chacha [facility] ([facility]) Work Phone: Cat Scan Comment on above: Elevated alkaline ph osphatase level [R74.8] Start: 11-10-2021 End: 11-10-2021 Patient encounter procedure Aleah Peralta GENERAL OPERATIONS AGENT Work Phone: Gastroenterology Comment on above: Colon cancer screeni ng (Primary Dx); Elevated alkaline phosphatase level; LUQ pain; Epigastric pain; Bloating; Early satiety; RUQ pain; Hepatomegaly; Nausea Start: 10-21-2021 ambulatory John veliz MD Work Phone: [facility] [place] Start: 10-16-2021 Telephone encounter John Sadler MD Work Phone: [facility] [place] Comment on above: Results; Appointment Start: 10-08-2021 End: 10-08-2021 Patient encounter procedure John Sadler MD Work Phone: [facility] [place] Comment on above: Well adult exam (Prabha jamar Dx); Mixed hyperlipidemia; Bilateral carotid artery stenosis; Migraine without aura and without status migrainosus, not intractable; GERD without esophagitis; YANN (generalized anxiety disorder); Current moderate episode of major depressive disorder without prior episode (HCC); Bipolar 1 disorder (HCC); Pseudoseizure; Encounter for immunization; Screening for HIV (human immunodeficiency virus); Arthralgia, unspecified joint; Acute constipation; Marijuana use; Smoker; Chronic rhinitis; Alkaline phosphatase elevation; Encounter for screening for diabetes mellitus; Need for vaccination; Screening for colon cancer; Obesity, Class I, BMI 30-34.9 Start: 10-08-2021 End: 10-08-2021 Patient encounter status John Sadler MD Work Phone: [facility] [place] Start: 09-25-2021 End: 09-25-2021 ambulatory Nayla Fagan PA-C Work Phone: [facility] Comment on above: CRP elevated (Primar y Dx); Polyarthralgia; Myofascial pain; Swelling; H/O intermittent claudication Start: 09-25-2021 End: 09-25-2021 Telemedicine consultation with patient Nayla Fagan PA-C Work Phone: [facility] Start: 08-13-2021 End: 08-13-2021 Subsequent hospital visit by physician [facility] Work Phone: Nuclear Medicine Comment on above: RUQ pain [R10.11] Start: 08-07-2021 End: 08-07-2021 Patient encounter procedure John Sadler MD Work Phone: Family [facility] [place] Comment on above: RUQ pain (Primary Dx ); Myalgia; Elevated serum alkaline phosphatase level; Renal insufficiency; Right upper quadrant pain; Marijuana use; Weight gain Start: 07-29-2021 Telephone encounter John Sadler MD Work Phone: [facility] Comment on above: Appointment Start: 07-27-2021 End: 07-27-2021 [facility] Start: 07-27-2021 End: 07-27-2021 Patient encounter procedure Anny Munguia APRN.GENERAL OPERATIONS AGENT Work Phone: [facility] Comment on above: Right upper quadrant abdominal pain (Primary Dx) Start: 05-25-2021 Telephone encounter John Sadler MD Work Phone: [facility] Comment on above: Patient Update Start: 10-12-2016 End: 10-13-2016 Ambulatory [facility] Facility:[facility] Procedures Date Procedure Procedure Detail Performing Clinician Start: 08-14-2024 Lipid 1996 panel - Serum or Plasma Isaiah Verdugo PA-C Work Phone: Start: 12-09-2021 Esophagogastroduodenoscopy transoral diagnostic Aleah Peralta SPINAL SURGEON.GENERAL OPERATIONS AGENT Work Phone: Start: 12-09-2021 Colonoscopy flx dx w/collj spec when pfrmd Aleah Peralta SPINAL SURGEON.GENERAL OPERATIONS AGENT Work Phone: Start: 12-09-2021 Colonoscopy Darcy Collins MD Work Phone: Start: 11-20-2021 Ct abdomen & pelvis w/contrast material Aleah Peralta SPINAL SURGEON.GENERAL OPERATIONS AGENT Work Phone: Start: 11-20-2021 Lipid 1996 panel - Serum or Plasma Flory Sadler MD Work Phone: Start: 08-13-2021 Hepatobil syst imag inc gb w/pharma intervenj John Sadler MD Work Phone: Start: 07-27-2021 US scan of gallbladder Start: 06-25-2019 Mammography Anny Munguia APRN.CNP Work Phone: Plan of Treatment Date Care Activity Detail Author Start: 09-23-2037 PNEUMOCOCCAL (1 - PCV) PNEUMOCOCCAL (1 - PCV) [facility] Comment on above: Postponed from 1978 (Postponed To Appropriate Date) Start: 09-23-2037 Pneumococcal vaccination Pneumococcal Vaccine (1 of 2 - PCV) [facility] Comment on above: Postponed from 1978 (Postponed To Appropriate Date) Start: 10-09-[address] [facility] Start: 08-14-2029 Lipid panel Lipid Screening [facility] Start: 08-15-2027 Diabetes Screening Diabetes Screening [facility] Start: 12-09-2026 Colonoscopy COLONOSCOPY [facility] Start: 12-09-2026 COLORECTAL CANCER SCREENING COLORECTAL CANCER SCREENING [facility] Start: 12-09-2026 Screening for malignant neoplasm of colon [facility] Start: 11-20-2026 Lipid panel Lipid Screening [facility] Start: 11-20-2026 LIPID SCREEN LIPID SCREEN [facility] Start: 08-27-2025 Screening for malignant neoplasm of breast Mammogram Screening [facility] Start: 08-15-2025 End: 08-15-2025 Patient encounter procedure 08/15/2025 9:00 AM EDT Office Visit [facility] [place] [address], [place] [phone] Stacia Verdugo PA-C [address] [place], [place] [phone] physcial [facility] [place] Comment on above: physcial Start: 08-14-2025 Covid-19 Vaccine ( season) Covid-19 Vaccine () [facility] Comment on above: Postponed from 12/25/2023 (Declined at t his time) Start: 08-14-2025 Pneumococcal Vaccine: 50+ (1 of 2 - PCV) Pneumococcal Vaccine: 50+ (1 of 2 - PCV) [facility] Comment on above: Postponed from 08/11/1991 (Declined at t his time) Start: 02-14-2025 End: 05-16-2025 25-hydroxyvitamin D3 [Mass/volume] in Serum or Plasma VITAMIN D 25 HYDROXY Lab Routine Vitamin D deficiency Expected: 02/14/2025, Expires: 05/16/2025 [facility] Comment on above: Expected: 02/14/2025, Expires: Start: 02-14-2025 End: 05-16-2025 Hemoglobin A1c in Blood HEMOGLOBIN A1C Lab Routine Prediabetes Expected: 02/14/2025, Expires: 05/16/2025 [facility] Comment on above: Expected: 02/14/2025, Expires: Start: 02-14-2025 End: 05-16-2025 Lipid 1996 panel - Serum or Plasma LIPID PANEL, FASTING Lab Routine Elevated triglycerides with high cholesterol Mixed hyperlipidemia Expected: 02/14/2025, Expires: 05/16/2025 [facility] Comment on above: Expected: 02/14/2025, Expires: Start: 02-14-2025 End: 02-14-2025 Patient encounter procedure 02/14/2025 9:40 AM EDT Office Visit [facility] [place] [address], [place] [id number] Stacia Verdugo PA-C [address] [facility] [place] [id number] 6 month f/u [facility] [place] Comment on above: 6 month f/u Start: 12-24-2024 Influenza vaccination Influenza Vaccine (Season Ended) [facility] Start: 11-20-2024 DIABETES SCREEN DIABETES SCREEN [facility] Start: 11-20-2024 Diabetes Screening Diabetes Screening [facility] Start: 10-22-2024 [facility] from 12/25/2023 (Declined at t his time) Start: 10-05-2024 DIABETES SCREEN DIABETES SCREEN [facility] Start: 10-04-2024 End: 01-03-2025 Potassium [Moles/volume] in Serum or Plasma POTASSIUM Lab Routine Hypokalemia Expected: 10/04/2024, Expires: 01/03/2025 [facility] Work Phone: Comment on above: Expected: 10/04/2024, Expires: Start: 08-29-2024 End: 11-28-2024 Potassium [Moles/volume] in Serum or Plasma POTASSIUM Lab Routine Hypokalemia Expected: 08/29/2024, Expires: 11/28/2024 [facility] Work Phone: Comment on above: Expected: 08/29/2024, Expires: Start: 08-27-2024 End: 08-27-2024 Patient encounter procedure 08/27/2024 9:10 AM EDT Appointment Mammogram [address] [place] [address] Dx: Encounter for screening mammogram for breast cancer [Z12.31] Mammogram Comment on above: Dx: Encounter for screening mammogram fo r breast cancer [Z12.31] Start: 08-07-2024 DIABETES SCREEN DIABETES SCREEN [facility] Start: 06-19-2024 LIPID SCREEN LIPID SCREEN [facility] Start: 04-06-2024 DIABETES SCREEN DIABETES SCREEN [facility] Start: 12-25-2023 Influenza vaccination Influenza Vaccine (Season Ended) [facility] Start: 12-24-2022 Covid-19 Vaccine ( season) Covid-19 Vaccine ( season) [facility] Start: 12-09-2022 Colonoscopy COLONOSCOPY [facility] Start: 12-09-2022 COLORECTAL CANCER SCREENING COLORECTAL CANCER SCREENING [facility] Start: 10-08-2022 COVID-19 VACCINE (#1) COVID-19 VACCINE (#1) [facility] Comment on above: Postponed from 1977 (Declined at t his time) Postponed from 02/09 (Declined at this time) Start: 2022 Screening for malignant neoplasm of lung Lung Cancer Screening [facility] Start: 2022 Shingrix Vaccine (1 of 2) Shingrix Vaccine (1 of 2) [facility] Start: 03-26-2022 End: 05-26-2022 LIPID PANEL, NONFASTING LIPID PANEL, NONFASTING Lab Routine Mixed hyperlipidemia Expected: 03/26/2022, Expires: 05/26/2022 [facility] Work Phone: Comment on above: Expected: 03/26/2022, Expires: 3 Start: 12-24-2021 Influenza vaccination INFLUENZA (#1) [facility] Start: 11-10-2021 End: 01-10-2022 Helicobacter pylori IgG Ab [Presence] in Serum or Plasma by Immunoassay H PYLORI IGG AB Lab Routine LUQ pain Epigastric pain Bloating Early satiety Expected: 11/10/2021, Expires: 01/10/2022 [facility] Work Phone: Comment on above: Expected: 11/10/2021, Expires: 2 Start: 10-08-2021 End: 12-08-2021 Hemoglobin A1c in Blood HGB A1C Lab Routine Encounter for screening for diabetes mellitus Well adult exam Expected: 10/08/2021, Expires: 12/08/2021 [facility] Work Phone: Comment on above: Expected: 10/08/2021, Expires: 2 Start: 10-08-2021 End: 12-08-2021 HIV 1+2 Ab [Presence] in Serum or Plasma by Immunoassay HIV 1 2 COMBO(AG/AB),WITH REFLEX TO DIFFERENTIATION Lab Routine Screening for HIV (human immunodeficiency virus) Arthralgia, unspecified joint Expected: 10/08/2021, Expires: 12/08/2021 [facility] Work Phone: Comment on above: Expected: 10/08/2021, Expires: 2 Start: 10-08-2021 End: 12-08-2021 LIPID PANEL, NONFASTING LIPID PANEL, NONFASTING Lab Routine Mixed hyperlipidemia Expected: 10/08/2021, Expires: 12/08/2021 [facility] Work Phone: Comment on above: Expected: 10/08/2021, Expires: 2 Start: 09-25-2021 End: 11-25-2021 Aldolase [Enzymatic activity/volume] in Serum or Plasma ALDOLASE BLD Lab Routine CRP elevated Polyarthralgia Swelling H/O intermittent claudication Myofascial pain Expected: 09/25/2021 (Approximate), Expires: 11/25/2021 [facility] Work Phone: Comment on above: Expected: 09/25/2021 (Approximate), Expi res: 11/25/2021 Start: 09-25-2021 End: 11-25-2021 MYRA BY IFA WITH REFLEX MYRA BY IFA WITH REFLEX Lab Routine CRP elevated Polyarthralgia Swelling H/O intermittent claudication Myofascial pain Expected: 09/25/2021 (Approximate), Expires: 11/25/2021 [facility] Work Phone: Comment on above: Expected: 09/25/2021 (Approximate), Expi res: 11/25/2021 Start: 09-25-2021 End: 11-25-2021 Angiotensin converting enzyme [Enzymatic activity/volume] in Serum or Plasma KING/ANGIOTENSIN BLD Lab Routine CRP elevated Polyarthralgia Swelling H/O intermittent claudication Myofascial pain Expected: 09/25/2021 (Approximate), Expires: 11/25/2021 [facility] Work Phone: Comment on above: Expected: 09/25/2021 (Approximate), Expi res: 11/25/2021 Start: 09-25-2021 End: 11-25-2021 ANTI NEUTRO CYTO AB ANTI NEUTRO CYTO AB Lab Routine CRP elevated Polyarthralgia Swelling H/O intermittent claudication Myofascial pain Expected: 09/25/2021 (Approximate), Expires: 11/25/2021 [facility] Work Phone: Comment on above: Expected: 09/25/2021 (Approximate), Expi res: 11/25/2021 Start: 09-25-2021 End: 11-25-2021 BLOOD TB SCREEN BLOOD TB SCREEN Lab Routine CRP elevated Polyarthralgia Swelling H/O intermittent claudication Myofascial pain Expected: 09/25/2021 (Approximate), Expires: 11/25/2021 [facility] Work Phone: Comment on above: Expected: 09/25/2021 (Approximate), Expi res: 11/25/2021 Start: 09-25-2021 End: 11-25-2021 C reactive protein [Mass/volume] in Serum or Plasma C-REACTIVE PROTEIN (CRP) Lab Routine CRP elevated Polyarthralgia Swelling H/O intermittent claudication Myofascial pain Expected: 09/25/2021 (Approximate), Expires: 11/25/2021 [facility] Work Phone: Comment on above: Expected: 09/25/2021 (Approximate), Expi res: 11/25/2021 Start: 09-25-2021 End: 11-25-2021 CBC W Auto Differential panel - Blood CBC + DIFF Lab Routine CRP elevated Polyarthralgia Swelling H/O intermittent claudication Myofascial pain Expected: 09/25/2021 (Approximate), Expires: 11/25/2021 [facility] Work Phone: Comment on above: Expected: 09/25/2021 (Approximate), Expi res: 11/25/2021 Start: 09-25-2021 End: 11-25-2021 CK CREATINE KINASE CK CREATINE KINASE Lab Routine CRP elevated Polyarthralgia Swelling H/O intermittent claudication Myofascial pain Expected: 09/25/2021 (Approximate), Expires: 11/25/2021 [facility] Work Phone: Comment on above: Expected: 09/25/2021 (Approximate), Expi res: 11/25/2021 Start: 09-25-2021 End: 11-25-2021 Complement C3 [Mass/volume] in Serum or Plasma C3 COMPLEMENT BLD Lab Routine CRP elevated Polyarthralgia Swelling H/O intermittent claudication Myofascial pain Expected: 09/25/2021 (Approximate), Expires: 11/25/2021 [facility] Work Phone: Comment on above: Expected: 09/25/2021 (Approximate), Expi res: 11/25/2021 Start: 09-25-2021 End: 11-25-2021 Complement C4 [Mass/volume] in Serum or Plasma C4 COMPLEMENT BLD Lab Routine CRP elevated Polyarthralgia Swelling H/O intermittent claudication Myofascial pain Expected: 09/25/2021 (Approximate), Expires: 11/25/2021 [facility] Work Phone: Comment on above: Expected: 09/25/2021 (Approximate), Expi res: 11/25/2021 Start: 09-25-2021 End: 11-25-2021 Comprehensive metabolic 2000 panel - Serum or Plasma COMP METABOLIC PANEL Lab Routine CRP elevated Polyarthralgia Swelling H/O intermittent claudication Myofascial pain Expected: 09/25/2021 (Approximate), Expires: 11/25/2021 [facility] Work Phone: Comment on above: Expected: 09/25/2021 (Approximate), Expi res: 11/25/2021 Start: 09-25-2021 End: 11-25-2021 Cyclic citrullinated peptide IgG Ab [Units/volume] in Serum or Plasma CCP ANTIBODY IGG Lab Routine CRP elevated Polyarthralgia Swelling H/O intermittent claudication Myofascial pain Expected: 09/25/2021 (Approximate), Expires: 11/25/2021 [facility] Work Phone: Comment on above: Expected: 09/25/2021 (Approximate), Expi res: 11/25/2021 Start: 09-25-2021 End: 11-25-2021 DNA ANTIBODY DS BLD DNA ANTIBODY DS BLD Lab Routine CRP elevated Polyarthralgia Swelling H/O intermittent claudication Myofascial pain Expected: 09/25/2021 (Approximate), Expires: 11/25/2021 [facility] Work Phone: Comment on above: Expected: 09/25/2021 (Approximate), Expi res: 11/25/2021 Start: 09-25-2021 End: 11-25-2021 Erythrocyte sedimentation rate SED RATE WESTERGREN Lab Routine CRP elevated Polyarthralgia Swelling H/O intermittent claudication Myofascial pain Expected: 09/25/2021 (Approximate), Expires: 11/25/2021 [facility] Work Phone: Comment on above: Expected: 09/25/2021 (Approximate), Expi res: 11/25/2021 Start: 09-25-2021 End: 11-25-2021 Extractable nuclear Ab panel - Serum ANTI ABENA ID Lab Routine CRP elevated Polyarthralgia Swelling H/O intermittent claudication Myofascial pain Expected: 09/25/2021 (Approximate), Expires: 11/25/2021 [facility] Work Phone: Comment on above: Expected: 09/25/2021 (Approximate), Expi res: 11/25/2021 Start: 09-25-2021 End: 11-25-2021 G-6-PD QUANTITATIVE G-6-PD QUANTITATIVE Lab Routine CRP elevated Polyarthralgia Swelling H/O intermittent claudication Myofascial pain Expected: 09/25/2021 (Approximate), Expires: 11/25/2021 [facility] Work Phone: Comment on above: Expected: 09/25/2021 (Approximate), Expi res: 11/25/2021 Start: 09-25-2021 End: 11-25-2021 IGG SUBCLASS 1,2,3,4 IGG SUBCLASS 1,2,3,4 Lab Routine CRP elevated Polyarthralgia Swelling H/O intermittent claudication Myofascial pain Expected: 09/25/2021 (Approximate), Expires: 11/25/2021 [facility] Work Phone: Comment on above: Expected: 09/25/2021 (Approximate), Expi res: 11/25/2021 Start: 09-25-2021 End: 11-25-2021 IMMUNOGLOBULINS NAMRATA IMMUNOGLOBULINS NAMRATA Lab Routine CRP elevated Polyarthralgia Swelling H/O intermittent claudication Myofascial pain Expected: 09/25/2021 (Approximate), Expires: 11/25/2021 [facility] Work Phone: Comment on above: Expected: 09/25/2021 (Approximate), Expi res: 11/25/2021 Start: 09-25-2021 End: 11-25-2021 Liver kidney microsomal Ab [Titer] in Serum by Immunofluorescence LKM AB Lab Routine CRP elevated Polyarthralgia Swelling H/O intermittent claudication Myofascial pain Expected: 09/25/2021 (Approximate), Expires: 11/25/2021 [facility] Work Phone: Comment on above: Expected: 09/25/2021 (Approximate), Expi res: 11/25/2021 Start: 09-25-2021 End: 11-25-2021 PM-SCL-100 IgG Ab [Units/volume] in Serum PM-SCL ANTIBODY Lab Routine CRP elevated Polyarthralgia Swelling H/O intermittent claudication Myofascial pain Expected: 09/25/2021 (Approximate), Expires: 11/25/2021 [facility] Work Phone: Comment on above: Expected: 09/25/2021 (Approximate), Expi res: 11/25/2021 Start: 09-25-2021 End: 11-25-2021 POLYMYOSITIS AND DERMATOMYOSITIS PANEL POLYMYOSITIS AND DERMATOMYOSITIS PANEL Lab Routine CRP elevated Polyarthralgia Swelling H/O intermittent claudication Myofascial pain Expected: 09/25/2021 (Approximate), Expires: 11/25/2021 [facility] Work Phone: Comment on above: Expected: 09/25/2021 (Approximate), Expi res: 11/25/2021 Start: 09-25-2021 End: 11-25-2021 Protein/Creatinine [Mass Ratio] in Urine PROTEIN CREATININE RATIO Lab Routine CRP elevated Polyarthralgia Swelling H/O intermittent claudication Myofascial pain Expected: 09/25/2021 (Approximate), Expires: 11/25/2021 [facility] Work Phone: Comment on above: Expected: 09/25/2021 (Approximate), Expi res: 11/25/2021 Start: 09-25-2021 End: 10-25-2022 Radiologic exam chest 2 views XR CHEST 2V FRONTAL/LAT Radiology Routine CRP elevated Polyarthralgia Swelling H/O intermittent claudication Myofascial pain Expected: 09/25/2021 (Approximate), Expires: 10/25/2022 [facility] Work Phone: Comment on above: Expected: 09/25/2021 (Approximate), Expi res: 10/25/2022 Start: 09-25-2021 End: 11-25-2021 SMOOTH MUSCLE AB PNL SCRN SMOOTH MUSCLE AB PNL SCRN Lab Routine CRP elevated Polyarthralgia Swelling H/O intermittent claudication Myofascial pain Expected: 09/25/2021 (Approximate), Expires: 11/25/2021 [facility] Work Phone: Comment on above: Expected: 09/25/2021 (Approximate), Expi res: 11/25/2021 Start: 09-25-2021 End: 11-25-2021 Urinalysis complete panel - Urine URINALYSIS, WITH MICROSCOPIC Lab Routine CRP elevated Polyarthralgia Swelling H/O intermittent claudication Myofascial pain Expected: 09/25/2021 (Approximate), Expires: 11/25/2021 [facility] Work Phone: Comment on above: Expected: 09/25/2021 (Approximate), Expi res: 11/25/2021 Start: 09-25-2021 End: 11-25-2021 VITAMIN D1 25-DIHYDR VITAMIN D1 25-DIHYDR Lab Routine CRP elevated Polyarthralgia Swelling H/O intermittent claudication Myofascial pain Expected: 09/25/2021 (Approximate), Expires: 11/25/2021 [facility] Work Phone: Comment on above: Expected: 09/25/2021 (Approximate), Expi res: 11/25/2021 Start: 08-07-2021 End: 10-07-2021 ALK PHOS ISOENZYM BL ALK PHOS ISOENZYM BL Lab Routine Elevated serum alkaline phosphatase level Expected: 08/07/2021, Expires: 10/07/2021 [facility] Work Phone: Comment on above: Expected: 08/07/2021, Expires: Start: 08-07-2021 End: 10-07-2021 MYRA BY IFA SCREEN [facility] Work Phone: Comment on above: Expected: 08/07/2021, Expires: 2 Start: 08-07-2021 End: 10-07-2021 HEP ACUTE PANEL/RNA [facility] Work Phone: Comment on above: Expected: 08/07/2021, Expires: 2 Start: 08-07-2021 End: 10-07-2021 MITOCHONDRIAL AB SCR [facility] Work Phone: Comment on above: Expected: 08/07/2021, Expires: 2 Start: 06-24-2020 Mammography MAMMOGRAM [facility] Start: 06-24-2020 Screening for malignant neoplasm of breast Mammogram Screening [facility] Start: 2017 COLOGUARD (FIT-DNA) COLOGUARD (FIT-DNA) [facility] Start: 2017 Colonoscopy COLONOSCOPY [facility] Start: 2017 COLORECTAL CANCER SCREENING COLORECTAL CANCER SCREENING [facility] Start: [address] COLONOGRAPHY [facility] Start: 2017 FECAL OCCULT BLOOD FECAL OCCULT BLOOD [facility] Start: 2017 Screening for malignant neoplasm of colon [facility] Start: 2017 SIGMOIDOSCOPY SIGMOIDOSCOPY [facility] Start: 08-11-1991 Hepatitis B Vaccine (1 of 3 - 19+ 3-dose series) Hepatitis B Vaccine (1 of 3 - 19+ 3-dose series) [facility] Start: 08-11-1991 ONE PNEUMOVAX PRIOR TO AGE 65 ONE PNEUMOVAX PRIOR TO AGE 65 [facility] Start: 08-11-1991 Urine microalbumin profile DTAP,TDAP,TD (1 - Tdap) [facility] Start: 1990 HEPATITIS C SCREENING HEPATITIS C SCREENING [facility] Start: 1990 HIV SCREENING HIV SCREENING [facility] Start: 1978 PNEUMOCOCCAL (1 - PCV) PNEUMOCOCCAL (1 - PCV) [facility] Start: 1977 COVID-19 VACCINE (#1) COVID-19 VACCINE (#1) [facility] Start: 1977 COVID-19 VACCINE (1) COVID-19 VACCINE (1) [facility] Start: 1972 HEPATITIS B (1 of 3 - 3-dose series) HEPATITIS B (1 of 3 - 3-dose series) [facility] End: 12-10-2022 Ct abdomen & pelvis w/contrast material CT ABD/PEL W IVCON Radiology Routine Elevated alkaline phosphatase level LUQ pain Epigastric pain Bloating Early satiety RUQ pain Hepatomegaly Nausea 1 Occurrences starting 11/10/2021 until 12/10/2022 [facility] Work Phone: Comment on above: 1 Occurrences starting 11/10/2021 until 12/10/2022 Ct abdomen & pelvis w/contrast material CT ABD/PEL W IVCON Radiology Routine Elevated alkaline phosphatase level LUQ pain Epigastric pain Bloating Early satiety RUQ pain Hepatomegaly Nausea 11/20/2021 10:08 AM EDT [facility] Work Phone: End: 09-13-2025 DBT Breast - bilateral screening KENDRICK SCREENING W BOBO Radiology Routine Encounter for screening mammogram for breast cancer 1 Occurrences starting 08/14/2024 until 09/13/2025 [facility] Work Phone: Comment on above: 1 Occurrences starting 08/14/2024 until 09/13/2025 DBT Breast - bilater al screening KENDRICK SCREENING W BOBO Radiology Routine Encounter for screening mammogram for breast cancer 08/27/2024 9:28 AM EDT [facility] Work Phone: End: 11-10-2022 EGD DIAGNOSTIC EGD DIAGNOSTIC Endoscopy Routine LUQ pain Epigastric pain Bloating Early satiety 1 Occurrences starting 11/10/2021 until 11/10/2022 [facility] Work Phone: Comment on above: 1 Occurrences starting 11/10/2021 until 11/10/2022 Hemoglobin.gastroint estinal .lower [Presence] in Stool by Immunoassay FECAL OCCULT BLOOD TEST Lab Routine Well adult exam Screening for colon cancer Ordered: 10/08/2021 [facility] Work Phone: Comment on above: Ordered: 10/08/2021 End: 09-06-2022 Hepatobil syst imag inc gb w/pharma intervenj NM HEPATOBILIARY W EF AND/OR RX Radiology Routine RUQ pain Right upper quadrant pain 1 Occurrences starting 08/07/2021 until 09/06/2022 [facility] Work Phone: Comment on above: 1 Occurrences starting 08/07/2021 until 09/06/2022 End: 10-13-2024 MG Breast Screening KENDRICK SCREENING Radiology Routine Encounter for screening mammogram for breast cancer 1 Occurrences starting 09/14/2023 until 10/13/2024 [facility] Work Phone: Comment on above: 1 Occurrences starting 09/14/2023 until 10/13/2024 Patient Education Nonalcoholic F atty Liver ... ED Abdominal Pain Unkn Cause Fem ED Renal Insufficiency [facility] Work Phone: Patient referral [facility] Work Phone: End: 10-25-2022 Radex spine cervical 2 or 3 views XR CERV GENERAL 2V AP/LAT Radiology Routine CRP elevated Polyarthralgia Swelling H/O intermittent claudication Myofascial pain 1 Occurrences starting 09/25/2021 until 10/25/2022 [facility] Work Phone: Comment on above: 1 Occurrences starting 09/25/2021 until 10/25/2022 End: 11-10-2022 Screening colonoscopy COLONOSCOPY SCREENING Endoscopy Routine Colon cancer screening Elevated alkaline phosphatase level 1 Occurrences starting 11/10/2021 until 11/10/2022 [facility] Work Phone: Comment on above: 1 Occurrences starting 11/10/2021 until 11/10/2022 End: 11-20-2022 Screening mammography bi 2-view breast inc cad KENDRICK SCREENING Radiology Routine Encounter for screening mammogram for breast cancer 1 Occurrences starting 10/21/2021 until 11/20/2022 [facility] Work Phone: Comment on above: 1 Occurrences starting 10/21/2021 until 11/20/2022 SURGICAL PATHOLOGY [facility] Work Phone: Comment on above: Release Upon Ordering for 1 Occurrences starting 12/09/2021, 1 completed End: 10-25-2022 XR FOOT SURVEY ARTHRITIS 1V AP BILATERAL XR FOOT SURVEY ARTHRITIS 1V AP BILATERAL Radiology Routine CRP elevated Polyarthralgia Swelling H/O intermittent claudication Myofascial pain 1 Occurrences starting 09/25/2021 until 10/25/2022 [facility] Work Phone: Comment on above: 1 Occurrences starting 09/25/2021 until 10/25/2022 End: 10-25-2022 XR HAND/WRIST SURVEY ARTHRITIS 1V PA BILATERAL XR HAND/WRIST SURVEY ARTHRITIS 1V PA BILATERAL Radiology Routine CRP elevated Polyarthralgia Swelling H/O intermittent claudication Myofascial pain 1 Occurrences starting 09/25/2021 until 10/25/2022 [facility] Work Phone: Comment on above: 1 Occurrences starting 09/25/2021 until 10/25/2022 [facility] Immunizations Immunization Date Immunization Notes Care Provider Fa [facility] 10-08-2021 tetanus toxoid, redu [place] diphtheria toxoid, and acellular pertussis vaccine, adsorbed John Sadler MD Work Phone: [facility] 02-20-2021 influenza, injectabl e, quadrivalent, contains preservative Anny Munguia SPINAL SURGEON.GENERAL OPERATIONS AGENT Work Phone: [facility] 02-20-2021 influenza virus vacc ine, unspecified formulation John Sadler MD Work Phone: [facility] Payers Date Payer Category Payer Self-pay [id number] 2022 Medicaid [id number] 2016 Private Health Insurance 2014 Unknown SELF PAY INSURANCE [id number] 2013 Medicaid [facility] MEDICAID [facility] [employer] MEDICAID [id number] 2013-Present [phone] [address] [place] [address] Medicaid [id number] 2013 Medicaid [id number] Unknown [id number] Social History Date Type Detail Facility Start: 08-08-2013 End: 08-14-2024 Tobacco smoking status NHIS Smokes tobacco daily [facility] History of tobacco use Cigarette Smoker C [facility] Start: 08-08-2013 End: 08-14-2024 Cigarettes smoked current (pack per day) - Reported 1 [facility] Start: 08-08-2013 End: 08-14-2024 Tobacco use and exposure Smokeless tobacco non-user [facility] Start: 07-25-2021 End: 08-14-2024 Alcohol intake Lifetime non-drinker (finding) [facility] Start: 08-07-2019 End: 10-06-2021 History SDOH Alcohol Frequency 1 [facility] Start: 11-19-2014 History SDOH Alcohol Comment 6 pack per month [facility] Start: 1970 Sex Assigned At Not on file C [facility] Start: 07-17-2021 End: 12-09-2021 Exposure to SARS-CoV-2 (event) Not sure [facility] Work Phone: Start: 07-27-2021 Tobacco smoking stat us AKIS Unknown if ever smoked [facility] Work Phone: Start: 09-04-2014 None [facility] Work Phone: Start: 09-04-2014 With Family [facility] Work Phone: Start: 09-04-2014 Non-smoker [facility] Work Phone: Start: 1970 Sex Assigned At Female W [facility] Work Phone: Start: 10-06-2021 History SDOH Alcohol Frequency 4 [facility] Start: 10-06-2021 History SDOH Social Connections Phone 2 [facility] Start: 10-06-2021 History SDOH Social Connections Get Together 3 [facility] Start: 10-06-2021 History SDOH Social Connections Living 5 [facility] Start: 04-22-2022 End: 08-14-2024 Social connection and isolation panel [facility] Do you belong to any clubs or organizations such as hinduism groups, unions, fraternal or athletic groups, or school groups? No [facility] Are you now , , , , never or living with a partner? [facility] How often to you hav e a drink containing alcohol? Monthly or less [facility] How many standard dr inks containing alcohol do you have on a typical day? 1 or 2 [facility] How often do you hav e 6 or more drinks on 1 occasion? Less than monthly [facility] How hard is it for y ou to pay for the very basics like food, housing, medical care, and heating Not hard at all [facility] Do you feel stress - tense, restless, nervous, or anxious, or unable to sleep at night because your mind is troubled all the time - these days [OSQ] Rather much [facility] (I/We) worried power er (my/our) food would run out before (I/we) got money to buy more. Never true [facility] Functional Status Date Assessment Result Facility 11-19-2014 Are you deaf, or do you have serious difficulty hearing No 11/19/2014 4:12 PM Julia Sandy No [facility] 11-19-2014 Are you blind, or do you have serious difficulty seeing, even when wearing glasses Yes 11/19/2014 4:12 PM Julia Sandy Yes [facility] 11-19-2014 Do you have serious difficulty walking or climbing stairs Yes 11/19/2014 4:12 PM Julia Sandy Yes [facility] 11-19-2014 Do you have difficul ty dressing or bathing No 11/19/2014 4:12 PM Julia Sandy No [facility] 11-19-2014 Because of a physica l, mental, or emotional condition, do you have difficulty doing errands alone such as visiting a physician's office or shopping Yes 11/19/2014 4:12 PM Julia Sandy Yes [facility] Mental Status Date Assessment Result Facility 11-19-2014 Because of a physica l, mental, or emotional condition, do you have serious difficulty concentrating, remembering, or making decisions Yes 11/19/2014 4:12 PM EDT Julia Rodríguez Yes [facility] Clinical Notes 06-19-2019 to 09-20-2024 Telephone Encounter - Joan Falcon LPN - 09/20/2024 9:14 AM EDTTelephone Encounter - Joan Falcon LPN - 09/20/2024 9:14 AM EDTSCarly cooper Mammo Tech - 08/27/2024 9:10 AM EDT Note Date & Type Note Facility 09-20-2024 Telephone encounter Note Patient notified of results and provider's instructions. Patient verbalizes understanding. Joan Falcon LPN [facility] 09-20-2024 Miscellaneous Notes Patient notified of results and provider's instructions. Patient verbalizes understanding. Joan Falcon LPN Potassium level is still low. Will have her start supplement snf and recheck levels in 2 weeks. Stacia Verdugo PA-C documented in this encounter [facility] 09-20-2024 Telephone encounter Note Potassium level is still low. Will have her start supplement snf and recheck levels in 2 weeks. Stacia Verdugo PA-C [facility] 08-28-2024 Telephone encounter Note Pt reviewed these results in My Chart message sent by Stacia Verdugo. Joan Falcon LPN [facility] 08-28-2024 Telephone encounter Note ----- Message from Stacia Verdugo PA-C sent at 08/28/2024 1:16 PM EDT ----- Normal mammogram. Repeat in 1 year. [facility] 08-28-2024 Miscellaneous Notes Pt reviewed these results in My Chart message sent by Stacia Verdugo. Joan Falcon LPN ----- Message from Stacia Verdugo PA-C sent at 08/28/2024 1:16 PM EDT ----- Normal mammogram. Repeat in 1 year. documented in this encounter [facility] 08-27-2024 History of Presen t illness Narrative Radiology Service Progress Note PATIENT NAME: Farnaz Umanzor DATE OF SERVICE: August 27, 2024 TIME: 9:00 AM PATIENT IDENTITY VERIFICATION COMPLETED USING TWO (2) IDENTIFIERS: Name and Date of confirmed by patient verbally. FALL SCREENING: Has the patient had 2 falls in the last year or 1 fall with injury or currently using an Ambulatory Assistive Device (Walker, Cane, Wheelchair, Crutches, etc.)? No PATIENT GENDER DATA: Assigned female at . status: : No status: NO. PATIENT RELEVANT IMPLANT DATA REVIEWED: Not Applicable PATIENT PRESENTS WITH AN IMPLANTABLE OR ATTACHED SEMICONDUCTOR PROCESSING GROUP LEADER: No RADIOLOGY DEPARTMENT: Mammography PERIPHERAL IV DATA: Not applicable SIGNED BY: Yudi Jenkins August 27, 2024 9:00 AM documented in this encounter [facility] 08-27-2024 Note HNO ID: [id number] Author: CARLY PATEL Mammo Tech Service: ? Author Type: Firer Retort Type: Progress Notes Filed: 08/27/2024 09:00 Note Text: Radiology Service Progress Note PATIENT NAME: Farnaz Umanzor DATE OF SERVICE: August 27, 2024 TIME: 9:00 AM PATIENT IDENTITY VERIFICATION COMPLETED USING TWO (2) IDENTIFIERS: Name and Date of confirmed by patient verbally. FALL SCREENING: Has the patient had 2 falls in the last year or 1 fall with injury or currently using an Ambulatory Assistive Device (Walker, Cane, Wheelchair, Crutches, etc.)? No PATIENT GENDER DATA: Assigned female at . status: : No status: NO. PATIENT RELEVANT IMPLANT DATA REVIEWED: Not Applicable PATIENT PRESENTS WITH AN IMPLANTABLE OR ATTACHED SEMICONDUCTOR PROCESSING GROUP LEADER: No RADIOLOGY DEPARTMENT: Mammography PERIPHERAL IV DATA: Not applicable SIGNED BY: Yudi Jenkins August 27, 2024 9:00 AM [facility] 08-15-2024 Telephone encounter Note The following approved medication requests have been transmitted electronically. Requested Prescriptions Signed Prescriptions Disp Refills potassium chloride ER (KLOR-CON) 20 mEq tablet 7 tablet 0 Sig: Take 1 tablet by mouth once daily for 7 days. cholecalciferol, Vitamin D3, (VITAMIN D3) 1,250 mcg (50,000 unit) cap capsule 12 capsule 1 Sig: Take 1 capsule by mouth one time a week. rosuvastatin (CRESTOR) 5 mg tablet 90 tablet 1 Sig: Take 1 tablet by mouth daily at bedtime. Stacia Verdugo PA-C [facility] 08-15-2024 Miscellaneous Notes The following approved medication requests have been transmitted electronically. Requested Prescriptions Signed Prescriptions Disp Refills potassium chloride ER (KLOR-CON) 20 mEq tablet 7 tablet 0 Sig: Take 1 tablet by mouth once daily for 7 days. cholecalciferol, Vitamin D3, (VITAMIN D3) 1,250 mcg (50,000 unit) cap capsule 12 capsule 1 Sig: Take 1 capsule by mouth one time a week. rosuvastatin (CRESTOR) 5 mg tablet 90 tablet 1 Sig: Take 1 tablet by mouth daily at bedtime. Stacia Verdugo PA-C Pt notified of results and instructions, pt verbalizes understanding. Pt is agreeable to starting medication for her cholesterol. Pt uses [facility]. 6 month f/u scheduled at this time and pt will complete labs prior to appointment as instructed.luz Falcon LPN Patient's A1c is at 6% which is prediabetes. Work on lowering carbs/sugars in diet. Cholesterol is high. Trigs are very high. Really needs to work on diet. Also should consider cholesterol lowering medications. Is she agreeable? Potassium is low. Will put her on potassium for 1 week and repeat levels in 2 weeks. Vit D level very low. Will start on 50,000 units once a week. Needs a follow up in 6 months with repeat labs. documented in this encounter [facility] 08-15-2024 Telephone encounter Note Pt notified of results and instructions, pt verbalizes understanding. Pt is agreeable to starting medication for her cholesterol. Pt uses [facility]. 6 month f/u scheduled at this time and pt will complete labs prior to appointment as instructed.luz Falcon LPN [facility] 08-15-2024 Telephone encounter Note Patient's A1c is at 6% which is prediabetes. Work on lowering carbs/sugars in diet. Cholesterol is high. Trigs are very high. Really needs to work on diet. Also should consider cholesterol lowering medications. Is she agreeable? Potassium is low. Will put her on potassium for 1 week and repeat levels in 2 weeks. Vit D level very low. Will start on 50,000 units once a week. Needs a follow up in 6 months with repeat labs. [facility] 08-14-2024 Note HNO ID: [id number] Author: STACIA VERDUGO PA-C Service: ? Author Type: Physician Manufacturing Design Engineer Type: Progress Notes Filed: 08/14/2024 09:36 Note Text: Chief Complaint Patient presents with: Yearly Exam HPI Farnaz Umanzor is a 54 year old female who presents here today for physical . Patient with hx as below. Annual Wellness Exam: - No significant health changes since last visit. - Denies counseling. - Sees psychiatrist Nisreen Orona every 6 months; reports stability. Headaches: - Occasional headaches; no changes or abnormalities noted. Tobacco Use: - Smokes approximately 1 pack per day. - First cigarette within 20 minutes of waking. - Interested in quitting; has attempted independently but struggles to succeed. - Expresses interest in nicotine replacement therapy. - Smokes marijuana; denies use of gummies or e-cigarettes. GERD: - Occasional heartburn 3-4 times per week. - Previously on Protonix 3 years ago; does not recall effectiveness. - Denies daily heartburn. Past medical history, appointments, medications, allergies reviewed. Previous Medical History PAST MEDICAL HISTORY Diagnosis Date Alkaline phosphatase elevation 06/20/2019 Alkaline phosphatase elevation 06/20/2019 W/u was negative. Bilateral carotid artery stenosis 07/03/2019 US 06/2019: Rt 20-40% and Lt 0-20% repeat in 3-5 yrs Bipolar 1 disorder (HCC) 06/19/2019 Chronic rhinitis 07/25/[address] Gant Chronic right shoulder pain 07/21/2013 Current moderate episode of major depressive disorder without prior episode (HCC) 07/21/2013 [facility] (generalized anxiety disorder) 06/19/2019 GERD without esophagitis 06/19/2019 Headache, unspecified headache type 06/19/2019 Ibuprofen overdose 07/21/2013 Marijuana use 06/19/2019 Mixed hyperlipidemia 06/20/2019 Pseudoseizure 04/06/2021 Dr. Maciel Smoker 06/19/2019 Started age 13 up to 1 PPD Previous Surgical History PAST SURGICAL HISTORY Procedure Laterality Date COLONOSCOPY 12/09/2021 EGD W/O BRSH SPEC VARICIES INJ 12/09/2021 HYSTERECTOMY HX 2008 for heavy bleeding OOPHORECTOMY, PART/TOTAL UNILAT/BILAT right removed, because of a cyst TONSILLECTOMY HX Family History FAMILY HISTORY Problem Relation Age of Onset None Other liver disease Colon Cancer Maternal Grandfather unknown if mother had colonoscopy Diabetes Mother Hyperlipidemia Mother other (not known) Father Diabetes Sister type 1 other (anancephaly) Brother Alzheimer's Disease Maternal Grandmother Coronary Artery Disease Maternal Grandmother 70's Breast Cancer Maternal Aunt other (stomach Cancer) Maternal Aunt other (accidental hanging) Brother Prostate Cancer No Family History Ovarian cancer No Family History Hypertension No Family History Kidney Disease No Family History Seizures No Family History Stroke No Family History Thyroid No Family History Patient Allergies ALLERGIES Allergen Reactions Bactrim [Sulfametho* Anaphylaxis Lamictal [Lamotrigi* Rash Cleocin [Clindamyci* Other: See Comments c diff Current Medications Current Outpatient Medications on File Prior to Visit Medication Sig risperiDONE (RISPERDAL) 1 mg tablet Take 1 mg in AM and 2 mg in PM. [facility] acetaminophen (TYLENOL EXTRA STRENGTH) 500 mg tablet Take 2 tablets by mouth every 6 hours as needed for pain. traZODone (DESYREL) 50 mg tablet Take 50 mg by mouth daily at bedtime. PARoxetine (PAXIL) 40 mg tablet Take 40 mg by mouth once daily. PARoxetine (PAXIL) 10 mg tablet Take 10 mg by mouth once daily. hydrOXYzine pamoate (VISTARIL) 50 mg capsule Take 50 mg by mouth three times daily as needed. (Patient taking differently: Take 50 mg by mouth two times a day as needed.) amantadine HCl (SYMMETREL) 100 mg capsule Take 1 capsule by mouth twice daily. From [facility] topiramate (TOPAMAX) 200 mg tablet Take 1 tablet by mouth twice daily. [facility] propranolol (INDERAL) 20 mg tablet Take 1 tablet by mouth once daily. peg 3350-Electrolytes (GOLYTELY) 236-22.74-6.74 -5.86 gram suspension Refer to printed prep instructions from your provider. pantoprazole DR (PROTONIX) 40 mg tablet Take 1 tablet by mouth once daily. loratadine (CLARITIN) 10 mg tablet Take 10 mg by mouth once daily. Take one tablet daily (Patient not taking: Reported on 08/14/2024) famotidine (PEPCID) 20 mg tablet Take 1 tablet by mouth twice daily. multivitamin tablet Take 1 tablet by mouth once daily. (Patient not taking: Reported on 08/14/2024) polyethylene glycol 3350 (MIRALAX) 17 gram/dose powder Take 17g in 8oz water once or twice a day for constipation until bowels are regular and then as needed (Patient not taking: Reported on 08/14/2024) fluticasone (FLONASE) 50 mcg/actuation nasal spray Use 2 Sprays in each nostril once daily. Rinse mouth after use. (Patient not taking: Reported on 08/14/2024) No current f (more content not included)... [facility] 08-14-2024 History of Presen t illness Narrative Chief Complaint Patient presents with: Yearly Exam HPI Farnaz Umanzor is a 54 year old female who presents here today for physical . Patient with hx as below. Annual Wellness Exam: - No significant health changes since last visit. - Denies counseling. - Sees psychiatrist Nisreen Orona every 6 months; reports stability. Headaches: - Occasional headaches; no changes or abnormalities noted. Tobacco Use: - Smokes approximately 1 pack per day. - First cigarette within 20 minutes of waking. - Interested in quitting; has attempted independently but struggles to succeed. - Expresses interest in nicotine replacement therapy. - Smokes marijuana; denies use of gummies or e-cigarettes. GERD: - Occasional heartburn 3-4 times per week. - Previously on Protonix 3 years ago; does not recall effectiveness. - Denies daily heartburn. Past medical history, appointments, medications, allergies reviewed. Previous Medical History PAST MEDICAL HISTORY Diagnosis Date Alkaline phosphatase elevation 06/20/2019 Alkaline phosphatase elevation 06/20/2019 W/u was negative. Bilateral carotid artery stenosis 07/03/2019 US 06/2019: Rt 20-40% and Lt 0-20% repeat in 3-5 yrs Bipolar 1 disorder (HCC) 06/19/2019 Chronic rhinitis 07/25/[address] Gant Chronic right shoulder pain 07/21/2013 Current moderate episode of major depressive disorder without prior episode (HCC) 07/21/2013 [facility] YANN (generalized anxiety disorder) 06/19/2019 GERD without esophagitis 06/19/2019 Headache, unspecified headache type 06/19/2019 Ibuprofen overdose 07/21/2013 Marijuana use 06/19/2019 Mixed hyperlipidemia 06/20/2019 Pseudoseizure 04/06/2021 Dr. Maciel Smoker 06/19/2019 Started age 13 up to 3 PPD Previous Surgical History PAST SURGICAL HISTORY Procedure Laterality Date COLONOSCOPY 12/09/2021 EGD W/O BRSH SPEC VARICIES INJ 12/09/2021 HYSTERECTOMY HX 2008 for heavy bleeding OOPHORECTOMY, PART/TOTAL UNILAT/BILAT right removed, because of a cyst TONSILLECTOMY HX Family History FAMILY HISTORY Problem Relation Age of Onset None Other liver disease Colon Cancer Maternal Grandfather unknown if mother had colonoscopy Diabetes Mother Hyperlipidemia Mother other (not known) Father Diabetes Sister type 1 other (anancephaly) Brother Alzheimer's Disease Maternal Grandmother Coronary Artery Disease Maternal Grandmother 70's Breast Cancer Maternal Aunt other (stomach Cancer) Maternal Aunt other (accidental hanging) Brother Prostate Cancer No Family History Ovarian cancer No Family History Hypertension No Family History Kidney Disease No Family History Seizures No Family History Stroke No Family History Thyroid No Family History Patient Allergies ALLERGIES Allergen Reactions Bactrim [Sulfametho* Anaphylaxis Lamictal [Lamotrigi* Rash Cleocin [Clindamyci* Other: See Comments c diff Current Medications Current Outpatient Medications on File Prior to Visit Medication Sig risperiDONE (RISPERDAL) 1 mg tablet Take 1 mg in AM and 2 mg in PM. [facility] acetaminophen (TYLENOL EXTRA STRENGTH) 500 mg tablet Take 2 tablets by mouth every 6 hours as needed for pain. traZODone (DESYREL) 50 mg tablet Take 50 mg by mouth daily at bedtime. PARoxetine (PAXIL) 40 mg tablet Take 40 mg by mouth once daily. PARoxetine (PAXIL) 10 mg tablet Take 10 mg by mouth once daily. hydrOXYzine pamoate (VISTARIL) 50 mg capsule Take 50 mg by mouth three times daily as needed. (Patient taking differently: Take 50 mg by mouth two times a day as needed.) amantadine HCl (SYMMETREL) 100 mg capsule Take 1 capsule by mouth twice daily. [facility] topiramate (TOPAMAX) 200 mg tablet Take 1 tablet by mouth twice daily. [facility] propranolol (INDERAL) 20 mg tablet Take 1 tablet by mouth once daily. peg 3350-Electrolytes (GOLYTELY) 236-22.74-6.74 -5.86 gram suspension Refer to printed prep instructions from your provider. pantoprazole DR (PROTONIX) 40 mg tablet Take 1 tablet by mouth once daily. loratadine (CLARITIN) 10 mg tablet Take 10 mg by mouth once daily. Take one tablet daily (Patient not taking: Reported on 08/14/2024) famotidine (PEPCID) 20 mg tablet Take 1 tablet by mouth twice daily. multivitamin tablet Take 1 tablet by mouth once daily. (Patient not taking: Reported on 08/14/2024) polyethylene glycol 3350 (MIRALAX) 17 gram/dose powder Take 17g in 8oz water once or twice a day for constipation until bowels are regular and then as needed (Patient not taking: Reported on 08/14/2024) fluticasone (FLONASE) 50 mcg/actuation nasal spray Use 2 Sprays in each nostril once daily. Rinse mouth after use. (Patient not taking: Reported on 08/14/2024) No current facility-administered medications on file prior to visit. Social History Social History Tobacco Use Smoking status: Every Day Current packs/day: 1.00 Average packs/day: 1 pack/day for 30.0 years (30.0 ttl pk-yrs) Types: Cigarettes Smokeless tobacco: Never Vaping Use Vaping status: Never Used Substance Use Topics Alcohol use: Never Comment: 6 pack per month Drug use: Yes Types: Marijuana Review of Symptoms REVIEW OF SYSTEMS GENERAL: No weight loss, malaise or fevers HEENT: No changes in hearing or vision, no nose bleeds or other nasal problems NECK: Negative for lumps, goiter, pain and significant neck swelling RESPIRATORY: Negative for cough, hemoptysis, wheezing, COPD, dyspnea or shortness of breath CARDIOVASCULAR: Negative for chest pain, leg swelling, hypertension, CHF or palpitations GI: +GERD. Negative for abdominal discomfort, blood in stools or black stools, change in bowel habit, nausea, vomiting : No history of dysuria, frequency or incontinence STRINGER MACHINE TENDER: Negative for abnormal vaginal bleeding, abnormal vaginal discharge MUSCULOSKELETAL: Negative for joint pain or swelling, back pain or muscle pain SKIN: Negative for lesions, rash, and itching PSYCH: seeing psych HEMATOLOGY/LYMPHOLOGY: Negative for prolonged bleeding, bruising easily or swollen nodes ENDOCRINE: Negative for cold or heat intolerance, polyuria, polydipsia and goiter NEURO: No history of worsening headaches, syncope, paralysis, seizures or tremors SEE HPI EXAM: BP 102/70 (BP Site: Left Arm, BP Position: Sitting, BP Cuff Size: Large Adult) Pulse 92 Temp 36.3 C (97.4 F) Resp 18 Ht 163.5 cm (5' 4.37) Wt 85.3 kg (188 lb) LMP 06/28/2008 SpO2 96% BMI 31.90 kg/m General Appearance: Well appearing, alert, in no acute distress, well-hydrated, well nourished. and Overweight. Skin: Skin color, texture, turgor normal, no suspicious rashes or lesions. Head: Normocephalic, no masses, lesions, tenderness or abnormalities. Eyes: Anicteric sclera. Pupils are equally round and reactive to light. Extraocular movements are intact. . Ears: External ears normal, canals clear, TMs pearly mi. Nose/Sinuses: Nares normal, septum midline, mucosa normal, no drainage or sinus tenderness. Oropharynx: Lips, mucosa, and tongue normal, teeth and gums normal, oropharynx normal. Neck: Supple, no adenopathy; thyroid symmetric, normal size, no bruits. Lungs: Lungs clear to auscultation. No wheezing, rhonchi, rales.. Heart: RRR without murmur, gallop, or rubs. No ectopy. Abdomen: Normal abdominal exam, Abdomen soft, non-tender. Bowel sounds normal. No masses, organomegaly. Extremities: No deformities, edema, skin discoloration, clubbing or cyanosis. Good capillary refill. . Peripheral Pulses: Normal. Neurologic: Gait normal. Reflexes normal and symmetric. Sensation grossly intact.. Health Maintenance List Hepatitis B Vaccine(1 of 3 - 19+ 3-dose series) Never done Mammogram Screening due on 06/24/2020 Lung Cancer Screening Never done Shingrix Vaccine(1 of 2) Never done Influenza Vaccine(1) due on 10/22/2024 Covid-19 Vaccine(1 - season) due on 08/14/2025 Pneumococcal Vaccine: 50+(1 of 2 - PCV) due on 08/14/2025 Diabetes Screening due on 11/20/2024 Lipid Screening due on 11/20/2026 Colorectal Cancer Screening due on 12/09/2026 DTaP,Tdap,Td Vaccine(2 - Td or Tdap) due on 10/09/2031 Hepatitis C Screening Completed HIV Screening Completed Cervical Cancer Screening Discontinued Data reviewed N/a Assessment and Plan 1. Well adult exam (Z00.00) - Occasional headaches, no changes or abnormalities noted. - Follow-up recommended yearly unless symptoms worsen or new concerns arise. 2. Encounter for screening mammogram for breast cancer (Z12.31) - Ordered mammogram. 3. Immunity status testing (Z01.84) - Ordered hepatitis B immunity screening. 4. Mixed hyperlipidemia (E78.2) await labs 5. Gastroesophageal reflux disease without esophagitis (K21.9) 6. GERD without esophagitis (K21.9) - Occasional heartburn, approximately 3-4 times a week. - Prescribed Protonix; instructed to take daily. can switch to every other day - Advised potential reduction to every other day if symptoms improve. - Discussed possibility of discontinuation if symptoms resolve completely. 7. YANN (generalized anxiety disorder) (F41.1) stable cont with psych 8. Current moderate episode of major depressive disorder without prior episode (HCC) (F32.1) stable continue with psyc 9. Bipolar 1 disorder (HCC) (F31.9) - Follow-up with psychiatrist every 6 months; condition stable. 10. Marijuana use (F12.90) - Continues to smoke marijuana; no use of gummies or e-cigarettes. 11. Migraine without aura and without status migrainosus, not intractable (G43.009) stable 12. Smoker (F17.200) - Smokes approximately one pack per day; first cigarette within 20 minutes of waking. - Interested in quitting; previously attempted cessation independently. - Discussed nicotine replacement therapy (NRT) and medications (Chantix, Wellbutrin). - Initiated nicotine patch at highest dose to replace cigarettes. - Advised to taper down dose after 6-8 weeks. - Prescription sent to [facility]. 13. Obesity, Class I, BMI 30-34.9 (E66.811) continue to work on lifestyle changes 14. Screening for diabetes mellitus (Z13.1) - Ordered blood work. 15. Screening for lung cancer (Z12.2) - Ordered CT scan to be performed at [facility]. Stacia Verdugo PA-C Recording using [employer] software for draft documentation of the visit was discussed with the patient/authorized community relations representative; all questions welcomed and answered. Patient/authorized community relations representative agreed to proceed documented in this encounter [facility] 08-14-2024 Note Patient Outreach (FA MPWS) FARNAZ UMANZOR ([id number]) 1970 F CHT Date Time Provider Department 08/14/24 JOHN SADLER During your visit today, we recorded the following information about you: Allergies As of Date: 08/14/2024 Noted Allergy Reaction BACTRIM (SULFAMETHOXAZOLE) 07/20/2013 10 - Anaphylaxis LAMICTAL (LAMOTRIGINE) 07/20/2013 2 - Rash CLEOCIN (CLINDAMYCIN HCL) 07/20/2013 14 - Other: See Comments Comments: c diff Date Reviewed: 08/14/2024 Reviewed by: Joan Falcon LPN - Fully Assessed Visit Diagnosis:Encounter for screening mammogram for breast cancer [Z12.31] Order(s):KENDRICK SCREENING W BOBO [[id number]] Order #: [id number] FUTURE Prescriptions as of 09/14/2024 - cholecalciferol, Vitamin D3, (VITAMIN D3) 1,250 mcg (50,000 unit) cap capsule Take 1 capsule by mouth one time a week. - rosuvastatin (CRESTOR) 5 mg tablet Take 1 tablet by mouth daily at bedtime. - nicotine (NICODERM) 21 mg/24 hr Apply 1 patch as directed every 24 hours. - pantoprazole DR (PROTONIX) 20 mg tablet Take 1 tablet by mouth once daily. - peg 3350-Electrolytes (GOLYTELY) 236-22.74-6.74 -5.86 gram suspension Refer to printed prep instructions from your provider. - polyethylene glycol 3350 (MIRALAX) 17 gram/dose powder Take 17g in 8oz water once or twice a day for constipation until bowels are regular and then as needed - risperiDONE (RISPERDAL) 1 mg tablet Take 1 mg in AM and 2 mg in PM. [facility] - acetaminophen (TYLENOL EXTRA STRENGTH) 500 mg tablet Take 2 tablets by mouth every 6 hours as needed for pain. - traZODone (DESYREL) 50 mg tablet Take 50 mg by mouth daily at bedtime. - PARoxetine (PAXIL) 40 mg tablet Take 40 mg by mouth once daily. - PARoxetine (PAXIL) 10 mg tablet Take 10 mg by mouth once daily. - amantadine HCl (SYMMETREL) 100 mg capsule Take 1 capsule by mouth twice daily. [facility] - topiramate (TOPAMAX) 200 mg tablet Take 1 tablet by mouth twice daily. [facility] Problem List As Of Date 08/14/2024 Noted Resolved Chronic right shoulder pain [M25.511, G89.29] 07/21/2013 Current moderate episode of major depressive di*07/21/2013 Bipolar 1 disorder (HCC) [F31.9] 06/19/2019 YANN (generalized anxiety disorder) [F41.1] 06/19/2019 GERD without esophagitis [K21.9] 06/19/2019 Smoker [F17.200] 06/19/2019 Marijuana use [F12.90] 06/19/2019 Well adult exam [Z00.00] 06/19/2019 Encounter for screening for diabetes mellitus [*06/19/2019 Migraine without aura and without status migrai*06/19/2019 Alkaline phosphatase elevation [R74.8] 06/20/2019 Mixed hyperlipidemia [E78.2] 06/20/2019 Bilateral carotid artery stenosis [I65.23] 07/03/2019 Medication management [Z79.899] 08/07/2019 Pseudoseizure [F44.5] 04/06/2021 Chronic rhinitis [J31.0] 07/25/2021 CRP elevated [R79.82] 08/18/2021 Arthralgia [M25.50] 08/18/2021 Obesity, Class I, BMI 30-34.9 [E66.811] 10/08/2021 Fatty liver [K76.0] 10/16/2021 Screening for lung cancer [Z12.2] 08/14/2024 Encounter Status:Closed by MAVIS ARNOLDUSER on 09/14/24 [facility] 03-26-2022 Miscellaneous Notes Patient phones requesting refills as follows: Requested Prescriptions Pending Prescriptions Disp Refills pantoprazole DR (PROTONIX) 40 mg tablet [Pharmacy Med Name: pantoprazole 40 mg tablet,delayed release] 30 tablet 11 Sig: Take 1 tablet by mouth once daily. Please review and advise. Sarah Yee MA documented in this encounter [facility] 12-09-2021 Nurse Note Report given to NESSA vargas. 100mL of LR given in recovery. Assisted pt w/dressing. All belongings given. Sitting in chair w/call light waiting to speak w/dr collins . Structures Technician called - declined to come in. Is staying in car. Went of d/c instructions w/wrecker driver. Hob up. Passing air. States ready to go. Encouraged to pass air Dr. Collins at bedside to speak to patient. Verbalizes understanding. documented in this encounter [facility] 12-09-2021 History and physical note HISTORY AND PHYSICAL Farnaz Umanzor, 51 year old female Current history and physical on file: Yes Is a new History and Physical required for today's visit? No Indication for procedure: Abdominal pain and Screening PROCEDURE(S) SCHEDULED FOR: Colonoscopy with or without biopsies and with or without removal of polyps or lesions, dilation (any means), treatment of bleeding (any means), based on clinical findings. and EGD (Esophagogastroduodenoscopy) with or without biopsies, removal of polyps or lesions, dilation ( any means), treatment of bleeding ( any means), Barrx treatment of Jamaal's Esophagus, image tube placement or cryo therapy treatment based on clinical findings. BASELINE BEHAVIOR: Calm BASELINE ORIENTATION: A & O x3 All medications and allergies reviewed: Yes Skin Assessment: Warm dry mucus membranes pink Airway/Respiratory Assessment: Airway: visualization of the uvula- Yes Mouth: opening greater than 2 fingerbreadths- Yes Neck: full range of motion- Yes Breath sounds clear/equal- Yes Cardiac Assessment: Regular rate and rhythm without murmur Abdominal Assessment: Abdomen soft, non-tender, no masses or organomegaly. Sedation Plan: MAC Additional Comments: None Darcy Collins MD documented in this encounter [facility] 11-25-2021 Miscellaneous Notes The following approved medication requests have been transmitted electronically. Signed Prescriptions Disp Refills propranolol (INDERAL) 20 mg tablet 30 tablet 5 Sig: Take 1 tablet by mouth once daily. NORMAN: No Authorizing Provider: JOHN SADLER MD Patient has been identified by name and date of : Yes Pending Prescriptions Disp Refills PROPRANOLOL 20 MG TABLET 30 tablet 5 Sig: Take 1 tablet by mouth once daily. NORMAN: No RX INSTRUCTIONS: Patient aware RX will be sent to pharmacy. No need to notify patient. Ruma Keller MA Rahul: 09/2021 Nov; 03/2022 Last refill: 05/2021 documented in this encounter [facility] 11-24-2021 Miscellaneous Notes Patient notified of results, verbalizes understanding of instructions. Magda Stone MA Let patient know her lab for HIV screening and for a bacteria in her stomach were negative. Her A1c for diabetes screening was slightly elevated at 5.9%. Normal is 4.3%-5.6% and diabetes is 6.5% and higher. So to reduce risk of becoming diabetic she should work on less sugar, carbs and starches in her diet along with increased exercise for weight loss. Her lipid panel showed Trigs very high at 1,449 (goal<150). This increases the risk for cardiovascular diease such as heart attacks and strokes, the development of pancreatitis and worsening of sugar control. Needs to work on reduce fat/chol in diet and weight loss. Her HDL is low at 24 (goal>50). Increased exercise can help this. Her LDL could not be determined because of the Trigs being so high. I want to repeat lipid panel in 4 months to see if improving to determine if we need to start medical treatment. Order placed. documented in this encounter [facility] 11-20-2021 History of Presen t illness Narrative Radiology Service Progress Note DATE OF SERVICE: November 20, 2021 TIME: 12:16 PM PATIENT IDENTITY VERIFICATION COMPLETED USING TWO (2) STANDARD IDENTIFIERS: Name and Date of confirmed by patient verbally. FALL SCREENING: Has the patient had 2 falls in the last year or 1 fall with injury or currently using an Ambulatory Assistive Device (Walker, Cane, Wheelchair, Crutches, etc.)? No PATIENT GENDER DATA: Female. status: : No status: NO. PATIENT RELEVANT IMPLANT DATA REVIEWED: Yes ALLERGIES: Reviewed and unchanged CONTRAST ALLERGY: NO. EXAM: CT -CONTRAST INDUCED NEPHROPATHY RISK FACTORS: Not applicable CREATININE: Creatinine Date Value Ref Range Status 10/05/2021 1.08 (H) 0.58 - 0.96 mg/dL Final 08/07/2021 1.05 (H) 0.58 - 0.96 mg/dL Final 04/06/2021 0.94 0.58 - 0.96 mg/dL Final Estimated Glomerular Filtration Rate Date Value Ref Range Status 10/05/2021 63 >=60 mL/min/1.73m Final Comment: Estimated Glomerular Filtration Rate (eGFR) is calculated using the 2020 CKD-EPI creatinine equation. This equation utilizes serum creatinine, sex, and age as parameters. The creatinine assay has traceable calibration to isotope dilution-mass spectrometry. Refer to KDIGO guidelines for clinical interpretation. In patients with unstable renal function, e.g. those with acute kidney injury, the eGFR may not accurately reflect actual GFR. eGFR- Date Value Ref Range Status 04/06/2021 >60 Final P.O.C.T. RESULTS: POC done: Yes, See Lab Tab November 20, 2021 TREATMENT: N/A PERIPHERAL IV DATA: Ambulatory: A peripheral IV was started in the Left antecubital site with a Angio cath: 22 gauge. RADIOLOGY DEPARTMENT: CT; Exam(s) Completed: Abdomen/Pelvis SIGNATURE: RT Iron(R) PATIENT NAME: Farnaz Umanzor DATE: November 20, 2021 TIME: 12:16 PM documented in this encounter [facility] 11-10-2021 Instructions Aleah Peralta APRN.KOBY - 11/10/2021 10:30 AM EDT Blood work Make your cardiac appt Schedule CT ABD Your procedure will be at [facility] location - they will call you to set up a date and time [facility] [address] [place], [place] [address] Follow the provided instructions for colonoscopy. You will be using GoLytely as the laxative during the preparation. You may start the laxative as early as 1:00 in the afternoon. The endoscopy staff will call you the day before the procedure with specific on arrival time. (Tuesday for Tuesday procedures). Start pantoprazole 40mg once daily on empty stomach and wait 30 min before eating Continue to take pepcid 20mg at bedtime Avoid NSAIDs (such as Advil, Ibuprofen, Excedrin, Mobic), tobacco, alcohol, carbonated beverages, caffeine, chocolate, tomato based sauces, spicy/fatty foods, and peppermint Avoid eating large meals. Avoid eating less than 3 hours before bed. Weight loss. Elevate the head of the bed 6 inches, or at least invest in a wedge pillow. documented in this encounter [facility] 11-10-2021 History of Presen t illness Narrative CHIEF COMPLAINT: Patient presents with: Abdominal Pain: upper right and left quad pain. States left is worse than right. Hurts to take a deep breath or cough. Constant dull, achy and sharp GERD: treatw with pepcid 20 mg twice daily Constipation: treats with miralax as needed. Abnormal Weight Gain This consult was requested by John Sadler MD for an opinion regarding RUQ pain. My final recommendations will be communicated to the requesting health care provider by way of the shared medical record for internal providers or letter via the [employer] for external providers. Farnaz Umanzor is a 51 year old female with a pmhx YANN, carotid artery stenosis bipolar, depression, hlp, migraines, pseudoseizures. Who presents for RUQ pain. HPI: Farnaz Umanzor is a 51 year old female with a pmhx YANN, carotid artery stenosis bipolar, depression, hlp, migraines, pseudoseizures. Who presents for evaluation of elevated ALP and LUQ pain. On recent blood work also had elevated alkaline phosphatase(150) alkaline phosphatase isoenzymes (liver fraction 128.9) patient had negative MYRA, RF, hep panel, TSH, AMA, alpha fetoprotein, amylase, GGT, lipase, RA all normal. The patient reports change in bowel habits,denies black stool or rectal bleeding. She reports she is having LUQ pain and radiates to her back. She reports certain foods like hamburger, red meats, red sauces, spicy foods, citrus bother her stomach. Having a bowel movement every other day - she reports stools are hard and balls - started taking miralax 2 capfuls daily and reports she her stools are soft but having a BM still every other day She reports regurgitation of food and at night acid reflux in her sleep. She reports nauseated in the mornings. She reports gaining weight but only eating eating once a day. She has noticed a decrease in appetite. She reports she is feeling full fast and eating less. She reports she bloating. She reports she has a decreasing in gas and burping. She reports LUQ pain and epigastric pain she reports this hurts even when she cough or breaths. She reports the the LUQ pain wraps around to her back she can't twist or bend She reports of discomfort RUQ not severe or constant like the LUQ pain. Denies vomiting, fever or chills. She also complains of fatigued and weakness she feels her muscles in her body are weak. At times feeling SOB with walking up the stairs. Denies dizziness and lightheaded. She reports at times she feels like she is swelling and had to take off her rings and can't get them back on. She reports she is to have cardiology appointment but has not made this yet. She reports following endocrinology Patient smoking 2 bowels of marijuana a day and current smoker 1 PPD Record Review: [facility] / Outside records reviewed. Component Latest Ref Rng & Units 08/07/2021 10/05/2021 WBC 3.70 - 11.00 k/uL 6.82 RBC 3.90 - 5.20 m/uL 4.49 Hemoglobin 11.5 - 15.5 g/dL 14.2 Hematocrit 36.0 - 46.0 % 42.8 MCV 80.0 - 100.0 fL 95.3 MCH 26.0 - 34.0 pg 31.6 MCHC 30.5 - 36.0 g/dL 33.2 RDW-CV 11.5 - 15.0 % 14.0 Platelet Count 150 - 400 k/uL 288 MPV 9.0 - 12.7 fL 9.5 Neut% % 48.8 Abs Neut (ANC) 1.45 - 7.50 k/uL 3.33 Lymph% % 40.6 Abs Lymph 1.00 - 4.00 k/uL 2.77 [place]% % 7.9 Abs [place] <0.87 k/uL 0.54 Eosin% % 1.5 Abs Eosin <0.46 k/uL 0.10 Baso% % 0.9 Abs Baso <0.11 k/uL 0.06 Immature Gran % % 0.3 IMMATURE GRANS (ABS) <0.10 k/uL <0.03 NRBC /100 WBC 0.0 Absolute nRBC <0.01 k/uL <0.01 DTYPE Auto Protein, Total 6.3 - 8.0 g/dL 7.0 Albumin 3.9 - 4.9 g/dL 4.2 Calcium 8.5 - 10.2 mg/dL 9.3 Bilirubin, Total 0.2 - 1.3 mg/dL <0.2 (L) Alkaline Phosphatase 34 - 123 U/L 150 (H) 158 (H) AST 13 - 35 U/L 15 ALT 7 - 38 U/L 11 Glucose 74 - 99 mg/dL 104 (H) BUN 7 - 21 mg/dL 8 Creatinine 0.58 - 0.96 mg/dL 1.05 (H) Sodium 136 - 144 mmol/L 140 Potassium 3.7 - 5.1 mmol/L 3.9 Chloride 97 - 105 mmol/L 108 (H) CO2 22 - 30 mmol/L 22 Anion Gap 9 - 18 mmol/L 10 eGFR >=60 mL/min/1.73m 66 Alk Phos Bone % 10.7 - 68.3 % 18.4 Bone Fraction 12.9 - 52.6 U/L 29.1 Alk Phos Liver % 26.0 - 86.2 % 81.6 Liver Fraction 16.0 - 69.3 U/L 128.9 (H) Alk Phos Intestine % 0.0 - 24.2 % 0.0 Intestine Fraction 0.0 - 16.3 U/L 0.0 Amylase 30 - 104 U/L 30 GGT 6 - 46 U/L 27 CRP <0.9 mg/dL 3.4 (H) WSR 0 - 20 mm/hr 15 17 AFP <11.0 ng/mL <3.0 Mitochondrial Ab Screen Negative Negative TSH 0.270 - 4.200 mIU/L 2.030 1.550 Free T4 0.9 - 1.7 ng/dL 0.8 (L) 0.8 (L) HCV RNA by PCR HCV RNA not detected by PCR. HCV RNA not detected by PCR. Hep B Surface Ag Negative Negative Hep A Ab, IgM Negative Negative Microsomal Antibody <5.6 IU/mL <1.0 Vit D1,25 Dihydroxy 19.9 - 79.3 pg/mL 34.3 07/27/2021: mild hepatomegaly, diffuse fatty infiltration of the liver 08/13/2021: HIDA: IMPRESSION: NO SCINTIGRAPHIC EVIDENCE FOR ACUTE COMMON OR CYSTIC DUCT OBSTRUCTION. NORMAL GALLBLADDER EJECTION FRACTION WITHOUT SCINTIGRAPHIC EVIDENCE OF CHRONIC CHOLECYSTITIS/BILIARY DYSKINESIA. PAST MEDICAL HISTORY Diagnosis Date Alkaline phosphatase elevation 06/20/2019 Alkaline phosphatase elevation 06/20/2019 W/u was negative. Bilateral carotid artery stenosis 07/03/2019 US 06/2019: Rt 20-40% and Lt 0-20% repeat in 3-5 yrs Bipolar 1 disorder (HCC) 06/19/2019 Chronic rhinitis 07/25/[address] Gant Chronic right shoulder pain 07/21/2013 Current moderate episode of major depressive disorder without prior episode (HCC) 07/21/2013 [facility] YANN (generalized anxiety disorder) 06/19/2019 GERD without esophagitis 06/19/2019 Headache, unspecified headache type 06/19/2019 Ibuprofen overdose 07/21/2013 Marijuana use 06/19/2019 Mixed hyperlipidemia 06/20/2019 Pseudoseizure 04/06/2021 Dr. Maciel Smoker 06/19/2019 Started age 13 up to 1 PPD PAST SURGICAL HISTORY Procedure Laterality Date HYSTERECTOMY HX 2008 for heavy bleeding OOPHORECTOMY, PART/TOTAL UNILAT/BILAT right removed, because of a cyst TONSILLECTOMY HX Allergies: ALLERGIES Allergen Reactions Bactrim [Sulfametho* Anaphylaxis Lamictal [Lamotrigi* Rash Cleocin [Clindamyci* Other: See Comments c diff Medications: loratadine (CLARITIN) 10 mg tablet Take 10 mg by mouth once daily. Take one tablet daily famotidine (PEPCID) 20 mg tablet Take 1 tablet by mouth twice daily. multivitamin tablet Take 1 tablet by mouth once daily. polyethylene glycol 3350 (MIRALAX) 17 gram/dose powder Take 17g in 8oz water once or twice a day for constipation until bowels are regular and then as needed risperiDONE (RISPERDAL) 1 mg tablet Take 1 mg in AM and 2 mg in PM. [facility] acetaminophen (TYLENOL EXTRA STRENGTH) 500 mg tablet Take 2 tablets by mouth every 6 hours as needed for pain. propranolol (INDERAL) 20 mg tablet Take 1 tablet by mouth once daily. traZODone (DESYREL) 50 mg tablet Take 50 mg by mouth daily at bedtime. PARoxetine (PAXIL) 40 mg tablet Take 40 mg by mouth once daily. PARoxetine (PAXIL) 10 mg tablet Take 10 mg by mouth once daily. hydrOXYzine pamoate (VISTARIL) 50 mg capsule Take 50 mg by mouth three times daily as needed. fluticasone (FLONASE) 50 mcg/actuation nasal spray Use 2 Sprays in each nostril once daily. Rinse mouth after use. white petrolatum - mineral oil (EUCERIN) cream Apply to affected area as needed for Dry Skin (daily as needed). amantadine HCl (SYMMETREL) 100 mg capsule Take 1 capsule by mouth twice daily. [facility] topiramate (TOPAMAX) 200 mg tablet Take 1 tablet by mouth twice daily. [facility] peg 3350-Electrolytes (GOLYTELY) 236-22.74-6.74 -5.86 gram suspension Refer to printed prep instructions from your provider. pantoprazole DR (PROTONIX) 40 mg tablet Take 1 tablet by mouth once daily. iv contrast (will be provided with radiology test) CT Chest ABD/PEL-Inject, intravenously, once for 1 dose.No IV access, insert saline lock prior to the beginning of sedation, infusion, injection of imaging exam. Discontinue saline lock post exam. If Pt. has a central line or IVAD, may access for administration according to line specific nursing protocol. Once exam is complete flush line and de-access according to line specific nursing protocol in the CT contrast administration guidelines link. enteric contrast (will be provided with radiology test) For CT CHESTABD/PEL W IVCON Routine order Administer, As Directed One Time Only, via Oral, Rectal, both Oral and Rectal, Enteric Tube, Stoma or Indwelling Catheter, Enteric Contrast as designated per enteric contrast guidelines FAMILY HISTORY Problem Relation Age of Onset None Other liver disease Colon Cancer Maternal Grandfather unknown if mother had colonoscopy Diabetes Mother Hyperlipidemia Mother other (not known) Father Diabetes Sister type 1 other (anancephaly) Brother Alzheimer's Disease Maternal Grandmother Coronary Artery Disease Maternal Grandmother 70's Breast Cancer Maternal Aunt other (stomach Cancer) Maternal Aunt other (accidental hanging) Brother Prostate Cancer No Family History Ovarian cancer No Family History Hypertension No Family History Kidney Disease No Family History Seizures No Family History Stroke No Family History Thyroid No Family History Employer And Job Title: No employer specified (disabled) Years Of Education Completed: Not specified Marital Status: Social History Tobacco Use Smoking status: Current Every Day Smoker Packs/day: 1.00 Years: 30.00 Pack years: 30.00 Types: Cigarettes Smokeless tobacco: Never Used Vaping Use Vaping Use: Never used Substance Use Topics Alcohol use: Never Comment: 6 pack per month Drug use: Yes Types: Marijuana Review of Systems: Review of Systems Constitutional: Positive for fatigue and unexpected weight change. Gastrointestinal: Positive for abdominal pain, constipation and diarrhea. All other systems reviewed and are negative. Are you taking any blood thinners? No Physical Examination: BP 110/70 Pulse 83 Ht 5' 3.78 (1.62m) Wt 195 lb (88.5kg) SpO2 98% LMP 06/28/2008 BMI 33.70 kg/(m^2). Physical Exam Abdominal: Tenderness: There is abdominal tenderness in the right upper quadrant, epigastric area and left upper quadrant. ASSESSMENT: Colon cancer screening (primary encounter diagnosis) Elevated alkaline phosphatase level Luq pain Epigastric pain Bloating Early satiety Ruq pain Hepatomegaly Nausea PLAN: Assessment/Plan (Z12.11) Colon cancer screening (primary encounter diagnosis) (R74.8) Elevated alkaline phosphatase level (R10.12) LUQ pain (R10.13) Epigastric pain (R14.0) Bloating (R68.81) Early satiety (R10.11) RUQ pain (R16.0) Hepatomegaly (R11.0) Nausea 1. Colon cancer screening - peg 3350-Electrolytes (GOLYTELY) 236-22.74-6.74 -5.86 gram suspension; Refer to printed prep instructions from your provider. Dispense: 4000 mL; Refill: 0 - COLONOSCOPY SCREENING; Future 2. Elevated alkaline phosphatase level On recent blood work also had elevated alkaline phosphatase(150) alkaline phosphatase isoenzymes (liver fraction 128.9) patient had negative MYRA, RF, hep panel, TSH, AMA, alpha fetoprotein, amylase, GGT, lipase, RA all normal. Work up has been normal at this time will monitor - - COLONOSCOPY SCREENING; Future - CT ABD/PEL W IVCON; Future - iv contrast (will be provided with radiology test); CT Chest ABD/PEL-Inject, intravenously, once for 1 dose.No IV access, insert saline lock prior to the beginning of sedation, infusion, injection of imaging exam. Discontinue saline lock post exam. If Pt. has a central line or IVAD, may access for administration according to line specific nursing protocol. Once exam is complete flush line and de-access according to line specific nursing protocol in the CT contrast administration guidelines link. Dispense: 1 Each; Refill: 0 - enteric contrast (will be provided with radiology test); For CT CHESTABD/PEL W IVCON Routine order Administer, As Directed One Time Only, via Oral, Rectal, both Oral and Rectal, Enteric Tube, Stoma or Indwelling Catheter, Enteric Contrast as designated per enteric contrast guidelines Dispense: 1 Each; Refill: 0 3. LUQ pain - pantoprazole DR (PROTONIX) 40 mg tablet; Take 1 tablet by mouth once daily. Dispense: 30 tablet; Refill: 2 - EGD DIAGNOSTIC; Future - H PYLORI IGG AB; Future - CT ABD/PEL W IVCON; Future - iv contrast (will be provided with radiology test); CT Chest ABD/PEL-Inject, intravenously, once for 1 dose.No IV access, insert saline lock prior to the beginning of sedation, infusion, injection of imaging exam. Discontinue saline lock post exam. If Pt. has a central line or IVAD, may access for administration according to line specific nursing protocol. Once exam is complete flush line and de-access according to line specific nursing protocol in the CT contrast administration guidelines link. Dispense: 1 Each; Refill: 0 - enteric contrast (will be provided with radiology test); For CT CHESTABD/PEL W IVCON Routine order Administer, As Directed One Time Only, via Oral, Rectal, both Oral and Rectal, Enteric Tube, Stoma or Indwelling Catheter, Enteric Contrast as designated per enteric contrast guidelines Dispense: 1 Each; Refill: 0 4. Epigastric pain Continue pepcid 20mg at bedtime start taking protonix 40mg and GERD lifestyle changes - pantoprazole DR (PROTONIX) 40 mg tablet; Take 1 tablet by mouth once daily. Dispense: 30 tablet; Refill: 2 - EGD DIAGNOSTIC; Future - H PYLORI IGG AB; Future - CT ABD/PEL W IVCON; Future - iv contrast (will be provided with radiology test); CT Chest ABD/PEL-Inject, intravenously, once for 1 dose.No IV access, insert saline lock prior to the beginning of sedation, infusion, injection of imaging exam. Discontinue saline lock post exam. If Pt. has a central line or IVAD, may access for administration according to line specific nursing protocol. Once exam is complete flush line and de-access according to line specific nursing protocol in the CT contrast administration guidelines link. Dispense: 1 Each; Refill: 0 - enteric contrast (will be provided with radiology test); For CT CHESTABD/PEL W IVCON Routine order Administer, As Directed One Time Only, via Oral, Rectal, both Oral and Rectal, Enteric Tube, Stoma or Indwelling Catheter, Enteric Contrast as designated per enteric contrast guidelines Dispense: 1 Each; Refill: 0 5. Bloating - pantoprazole DR (PROTONIX) 40 mg tablet; Take 1 tablet by mouth once daily. Dispense: 30 tablet; Refill: 2 - EGD DIAGNOSTIC; Future - H PYLORI IGG AB; Future - CT ABD/PEL W IVCON; Future - iv contrast (will be provided with radiology test); CT Chest ABD/PEL-Inject, intravenously, once for 1 dose.No IV access, insert saline lock prior to the beginning of sedation, infusion, injection of imaging exam. Discontinue saline lock post exam. If Pt. has a central line or IVAD, may access for administration according to line specific nursing protocol. Once exam is complete flush line and de-access according to line specific nursing protocol in the CT contrast administration guidelines link. Dispense: 1 Each; Refill: 0 - enteric contrast (will be provided with radiology test); For CT CHESTABD/PEL W IVCON Routine order Administer, As Directed One Time Only, via Oral, Rectal, both Oral and Rectal, Enteric Tube, Stoma or Indwelling Catheter, Enteric Contrast as designated per enteric contrast guidelines Dispense: 1 Each; Refill: 0 6. Early satiety - pantoprazole DR (PROTONIX) 40 mg tablet; Take 1 tablet by mouth once daily. Dispense: 30 tablet; Refill: 2 - EGD DIAGNOSTIC; Future - H PYLORI IGG AB; Future - CT ABD/PEL W IVCON; Future - iv contrast (will be provided with radiology test); CT Chest ABD/PEL-Inject, intravenously, once for 1 dose.No IV access, insert saline lock prior to the beginning of sedation, infusion, injection of imaging exam. Discontinue saline lock post exam. If Pt. has a central line or IVAD, may access for administration according to line specific nursing protocol. Once exam is complete flush line and de-access according to line specific nursing protocol in the CT contrast administration guidelines link. Dispense: 1 Each; Refill: 0 - enteric contrast (will be provided with radiology test); For CT CHESTABD/PEL W IVCON Routine order Administer, As Directed One Time Only, via Oral, Rectal, both Oral and Rectal, Enteric Tube, Stoma or Indwelling Catheter, Enteric Contrast as designated per enteric contrast guidelines Dispense: 1 Each; Refill: 0 7. RUQ pain - CT ABD/PEL W IVCON; Future - iv contrast (will be provided with radiology test); CT Chest ABD/PEL-Inject, intravenously, once for 1 dose.No IV access, insert saline lock prior to the beginning of sedation, infusion, injection of imaging exam. Discontinue saline lock post exam. If Pt. has a central line or IVAD, may access for administration according to line specific nursing protocol. Once exam is complete flush line and de-access according to line specific nursing protocol in the CT contrast administration guidelines link. Dispense: 1 Each; Refill: 0 - enteric contrast (will be provided with radiology test); For CT CHESTABD/PEL W IVCON Routine order Administer, As Directed One Time Only, via Oral, Rectal, both Oral and Rectal, Enteric Tube, Stoma or Indwelling Catheter, Enteric Contrast as designated per enteric contrast guidelines Dispense: 1 Each; Refill: 0 8. Hepatomegaly - CT ABD/PEL W IVCON; Future - iv contrast (will be provided with radiology test); CT Chest ABD/PEL-Inject, intravenously, once for 1 dose.No IV access, insert saline lock prior to the beginning of sedation, infusion, injection of imaging exam. Discontinue saline lock post exam. If Pt. has a central line or IVAD, may access for administration according to line specific nursing protocol. Once exam is complete flush line and de-access according to line specific nursing protocol in the CT contrast administration guidelines link. Dispense: 1 Each; Refill: 0 - enteric contrast (will be provided with radiology test); For CT CHESTABD/PEL W IVCON Routine order Administer, As Directed One Time Only, via Oral, Rectal, both Oral and Rectal, Enteric Tube, Stoma or Indwelling Catheter, Enteric Contrast as designated per enteric contrast guidelines Dispense: 1 Each; Refill: 0 9. Nausea - - pantoprazole DR (PROTONIX) 40 mg tablet; Take 1 tablet by mouth once daily. Dispense: 30 tablet; Refill: 2 - CT ABD/PEL W IVCON; Future - iv contrast (will be provided with radiology test); CT Chest ABD/PEL-Inject, intravenously, once for 1 dose.No IV access, insert saline lock prior to the beginning of sedation, infusion, injection of imaging exam. Discontinue saline lock post exam. If Pt. has a central line or IVAD, may access for administration according to line specific nursing protocol. Once exam is complete flush line and de-access according to line specific nursing protocol in the CT contrast administration guidelines link. Dispense: 1 Each; Refill: 0 - enteric contrast (will be provided with radiology test); For CT CHESTABD/PEL W IVCON Routine order Administer, As Directed One Time Only, via Oral, Rectal, both Oral and Rectal, Enteric Tube, Stoma or Indwelling Catheter, Enteric Contrast as designated per enteric contrast guidelines Dispense: 1 Each; Refill: 0 Follow up in office 3 months/PRN. Recommended to please call office/go to ER if fever, chills, chest pain, SOB, diarrhea, nausea, emesis, worsening abdominal pain, dehydration occurs I spent a total of 30 minutes on the date of the service which included preparing to see the patient, [id number] patient care, completing clinical documentation, obtaining and/or reviewing separately obtained history, performing a medically appropriate examination, counseling and educating the patient/family/caregiver, ordering medications, tests, or procedures, communicating with other HCPs (not separately reported), independently interpreting results (not separately reported), communicating results to the patient/family/caregiver, and care coordination (not separately reported). Aleah Peralta APRN.GENERAL OPERATIONS AGENT November 10, 2021 3:54 PM documented in this encounter [facility] 10-21-2021 Miscellaneous Notes Scheduled with Gastro 11/10/21. Josey Carr Ma Pt called and is notified of providers message. Pt voices understanding. Pt put through to scheduling to make Gastro appointment. Keira Ruiz RN Patient notified of results and provider's instructions. Patient verbalizes understanding. Pt would like to see a liver specialist. Would like to stay local. Please place referral. Joan Falcon LPN Attempted to contact patient no answer; voice mail full. Ruma Keller MA Let patient know that though her Free T4 is slightly low her other two thyroid labs were normal. No thyroid disease. Her Alk Phos is elevated and looks like it's source is the liver. I suspect this is secondary to the fatty live that was noted on the US she had done. If she would like can refer her to see a liver specialist to get their opinion. documented in this encounter [facility] 10-08-2021 History of Presen t illness Narrative Chief Complaint Physical HPI Farnaz Umanzor is a 51 year old female who presents here today for Physical. Patient with hx of YANN, bipolar, depression, hlp, migraines, and more recently dx with likely pseudoseizures. Concerns: Patient indicated soreness on left side of neck; fatigue. Patient did see rheumatology on for w/u of her fatigue and chronic muscular pains. Multiple labs and x-rays placed. Patient also referred to vascular and cardio for eval of leg swelling and claudication which she still needs to set up. She does have her appt with gastro next month for w/u of the elevated Alk Phos and RUQ pain. Her US and HIDA scans were within normal limits. Patient is wanting to know if she can get tylenol prescription. Patient has put on some weight more weight. She still smokes about two bowels of marijuana a day. Past medical history, appointments, medications, allergies reviewed. Previous Medical History PAST MEDICAL HISTORY Diagnosis Date Alkaline phosphatase elevation 06/20/2019 Alkaline phosphatase elevation 06/20/2019 W/u was negative. Bilateral carotid artery stenosis 07/03/2019 US 06/2019: Rt 20-40% and Lt 0-20% repeat in 3-5 yrs Bipolar 1 disorder (HCC) 06/19/2019 Chronic rhinitis 07/25/[address] Gant Chronic right shoulder pain 07/21/2013 Current moderate episode of major depressive disorder without prior episode (HCC) 07/21/2013 [facility] YANN (generalized anxiety disorder) 06/19/2019 GERD without esophagitis 06/19/2019 Headache, unspecified headache type 06/19/2019 Ibuprofen overdose 07/21/2013 Marijuana use 06/19/2019 Mixed hyperlipidemia 06/20/2019 Pseudoseizure 04/06/2021 Dr. Maciel Smoker 06/19/2019 Started age 13 up to 1 PPD Previous Surgical History PAST SURGICAL HISTORY Procedure Laterality Date HYSTERECTOMY HX 2008 for heavy bleeding OOPHORECTOMY, PART/TOTAL UNILAT/BILAT right removed, because of a cyst TONSILLECTOMY HX Family History FAMILY HISTORY Problem Relation Age of Onset None Other liver disease Colon Cancer Maternal Grandfather unknown if mother had colonoscopy Diabetes Mother Hyperlipidemia Mother other (not known) Father Diabetes Sister type 1 other (anancephaly) Brother Alzheimer's Disease Maternal Grandmother Coronary Artery Disease Maternal Grandmother 70's Breast Cancer Maternal Aunt other (stomach Cancer) Maternal Aunt other (accidental hanging) Brother Prostate Cancer No Family History Ovarian cancer No Family History Hypertension No Family History Kidney Disease No Family History Seizures No Family History Stroke No Family History Thyroid No Family History Patient Allergies ALLERGIES Allergen Reactions Bactrim [Sulfametho* Anaphylaxis Lamictal [Lamotrigi* Rash Cleocin [Clindamyci* Other: See Comments c diff Current Medications Current Outpatient Medications on File Prior to Visit Medication Sig propranolol (INDERAL) 20 mg tablet Take 1 tablet by mouth once daily. famotidine (PEPCID) 20 mg tablet Take 1 tablet by mouth twice daily. traZODone (DESYREL) 50 mg tablet Take 50 mg by mouth daily at bedtime. PARoxetine (PAXIL) 40 mg tablet Take 40 mg by mouth once daily. PARoxetine (PAXIL) 10 mg tablet Take 10 mg by mouth once daily. hydrOXYzine pamoate (VISTARIL) 50 mg capsule Take 50 mg by mouth three times daily as needed. fluticasone (FLONASE) 50 mcg/actuation nasal spray Use 2 Sprays in each nostril once daily. Rinse mouth after use. multivitamin tablet Take 1 tablet by mouth once daily. polyethylene glycol 3350 (MIRALAX) 17 gram/dose powder Take 17g in 8oz water once or twice a day for constipation until bowels are regular and then as needed white petrolatum - mineral oil (EUCERIN) cream Apply to affected area as needed for Dry Skin (daily as needed). PARoxetine ER (PAXIL CR) 25 mg 24 hr tablet Take 2 tablets by mouth twice daily. [facility] (Patient not taking: Reported on 04/06/2021 ) amantadine HCl (SYMMETREL) 100 mg capsule Take 1 capsule by mouth twice daily. [facility] risperiDONE (RISPERDAL) 1 mg tablet Take 1 tablet by mouth at bedtime as needed. [facility] topiramate (TOPAMAX) 200 mg tablet Take 1 tablet by mouth twice daily. [facility] No current facility-administered medications on file prior to visit. Social History Social History Tobacco Use Smoking status: Current Every Day Smoker Packs/day: 1.00 Years: 30.00 Pack years: 30.00 Types: Cigarettes Smokeless tobacco: Never Used Vaping Use Vaping Use: Never used Substance Use Topics Alcohol use: Never Comment: 6 pack per month Drug use: Yes Types: Marijuana Review of Symptoms REVIEW OF SYSTEMS GENERAL: No weight loss, malaise or fevers HEENT: Negative for frequent or significant headaches, No changes in hearing or vision, no nose bleeds or other nasal problems NECK: Negative for lumps, goiter, pain and significant neck swelling. Has pain in th right side of neck. RESPIRATORY: Negative for cough, hemoptysis, wheezing, COPD, dyspnea or shortness of breath CARDIOVASCULAR: Negative for chest pain, leg swelling, hypertension, CHF or palpitations GI: No nausea, vomiting, or diarrhea, No frequent heartburn or reflux symptoms and no blood : No history of dysuria, frequency or incontinence MUSCULOSKELETAL: seeing rheumatology for w/u SKIN: Negative for lesions, rash, and itching PSYCH: sees psych for management HEMATOLOGY/LYMPHOLOGY: Negative for prolonged bleeding, bruising easily or swollen nodes ENDOCRINE: Negative for cold or heat intolerance, polyuria, polydipsia and goiter NEURO: No history of headaches, syncope, paralysis, seizures or tremors EXAM: BP 112/78 (BP Site: Right Arm, BP Position: Sitting, BP Cuff Size: Large Adult) Pulse 84 Resp 16 Ht 161.3 cm (5' 3.5) Wt 89.8 kg (198 lb) LMP 06/28/2008 BMI 34.52 kg/m Last 6 Encounter Wt Readings: Date: Wt: 10/08/2021 89.8 kg (198 lb) 08/07/2021 86.6 kg (191 lb) 04/06/2021 81.6 kg (180 lb) 02/20/2021 76.2 kg (168 lb) 01/29/2021 78.6 kg (173 lb 3.2 oz) 01/08/2021 79.2 kg (174 lb 9.6 oz) General Appearance: Well appearing, alert, in no acute distress, well-hydrated, well nourished. and Obese. Skin: Skin color, texture, turgor normal, no suspicious rashes or lesions. Head: Normocephalic, no masses, lesions, tenderness or abnormalities. Eyes: Anicteric sclera. Pupils are equally round and reactive to light. Extraocular movements are intact. . Ears: External ears, TM's normal, canals clear. Neck: Supple, no adenopathy; thyroid symmetric, normal size, no bruits. Lungs: Lungs clear to auscultation. No wheezing, rhonchi, rales.. Heart: RRR without murmur, gallop, or rubs. No ectopy. Abdomen: Normal abdominal exam, Abdomen soft, non-tender. Bowel sounds normal. No masses, organomegaly. Extremities: No deformities, edema, skin discoloration. Musculoskeletal: Muscular strength intact, No joint swelling, deformity, or tenderness. Peripheral Pulses: Normal. Neurologic: Gait normal. Sensation to light touch and crainal nerves 2-12 intact.. Health Maintenance List COVID-19 VACCINE(1) Never done PNEUMOCOCCAL(1 - PCV) Never done HIV SCREENING Never done DTAP,TDAP,TD(1 - Tdap) Never done COLORECTAL CANCER SCREENING Never done MAMMOGRAM due on 06/24/2020 LIPID SCREEN due on 06/19/2024 DIABETES SCREEN due on 08/07/2024 INFLUENZA Completed HEPATITIS C SCREENING Completed PAP TESTING Discontinued HPV TESTING Discontinued Data reviewed Component Latest Ref Rng & Units 10/05/2021 WBC 3.70 - 11.00 k/uL 6.82 RBC 3.90 - 5.20 m/uL 4.49 Hemoglobin 11.5 - 15.5 g/dL 14.2 Hematocrit 36.0 - 46.0 % 42.8 MCV 80.0 - 100.0 fL 95.3 MCH 26.0 - 34.0 pg 31.6 MCHC 30.5 - 36.0 g/dL 33.2 RDW-CV 11.5 - 15.0 % 14.0 Platelet Count 150 - 400 k/uL 288 MPV 9.0 - 12.7 fL 9.5 Neut% % 48.8 Abs Neut (ANC) 1.45 - 7.50 k/uL 3.33 Lymph% % 40.6 Abs Lymph 1.00 - 4.00 k/uL 2.77 [place]% % 7.9 Abs [place] <0.87 k/uL 0.54 Eosin% % 1.5 Abs Eosin <0.46 k/uL 0.10 Baso% % 0.9 Abs Baso <0.11 k/uL 0.06 Immature Gran % % 0.3 IMMATURE GRANS (ABS) <0.10 k/uL <0.03 NRBC /100 WBC 0.0 Absolute nRBC <0.01 k/uL <0.01 DTYPE Auto Protein, Total 6.3 - 8.0 g/dL 6.8 Albumin 3.9 - 4.9 g/dL 4.3 Calcium 8.5 - 10.2 mg/dL 9.7 Bilirubin, Total 0.2 - 1.3 mg/dL <0.2 (L) Alkaline Phosphatase 34 - 123 U/L 158 (H) AST 13 - 35 U/L 14 ALT 7 - 38 U/L 9 Glucose 74 - 99 mg/dL 98 BUN 7 - 21 mg/dL 8 Creatinine 0.58 - 0.96 mg/dL 1.08 (H) Sodium 136 - 144 mmol/L 140 Potassium 3.7 - 5.1 mmol/L 4.1 Chloride 97 - 105 mmol/L 106 (H) CO2 22 - 30 mmol/L 21 (L) Anion Gap 9 - 18 mmol/L 13 eGFR >=60 mL/min/1.73m 63 A/P ASSESSMENT/PLAN: 1. Well adult exam - ICD9: V70.0, ICD10: Z00.00 (primary diagnosis) - Counseled on healthy diet and regular exercise - Calcium intake with supplements or by diet of 1000 mg/day for under 50, 4830-7347 mg/day for 50+ - Patient was counseled [id number] by myself (the billing provider) for the following immunizations and vaccine components, including side effects: TdaP. Patient consents for immunization and understands risks and benefits. A VIS sheet on each immunization was given to the patient. - Follow up for annual exam in one year - FECAL OCCULT BLOOD TEST - HGB A1C 2. Mixed hyperlipidemia - ICD9: 272.2, ICD10: E78.2 - to be determined upon return of lab results - Encouraged following a low fat, low cholesterol diet. - Discussed the benefits of regular aerobic exercise and weight loss. - Encouraged following a low carbohydrate, healthy oil intake diet. - Continue current therapy. - LIPID PANEL, NONFASTING 3. Bilateral carotid artery stenosis - ICD9: 433.10, 433.30, ICD10: I65.23 - Cont current Tx and f/u US's 4. Migraine without aura and without status migrainosus, not intractable - ICD9: 346.10, ICD10: G43.009 - Stable with current Tx. 5. GERD without esophagitis - ICD9: 530.81, ICD10: K21.9 - Continue treatment with Pepcid 20 mg BID 6. YANN (generalized anxiety disorder) - ICD9: 300.02, ICD10: F41.1 - Management per Psych 7. Current moderate episode of major depressive disorder without prior episode (HCC) - ICD9: 296.22, ICD10: F32.1 - As per #6 8. Bipolar 1 disorder (HCC) - ICD9: 296.7, ICD10: F31.9 - As per #6 9. Pseudoseizure - ICD9: 300.11, ICD10: F44.5 - Related to psych issues 10. Encounter for immunization - ICD9: V03.89, ICD10: Z23 - Tdap updated. 11. Screening for HIV (human immunodeficiency virus) - ICD9: V73.89, ICD10: Z11.4 check - HIV 1 2 COMBO(AG/AB),WITH REFLEX TO DIFFERENTIATION 12. Arthralgia, unspecified joint - ICD9: 719.40, ICD10: M25.50 chekjc - HIV 1 2 COMBO(AG/AB),WITH REFLEX TO DIFFERENTIATION 13. Acute constipation - ICD9: 564.00, ICD10: K59.00 Cont - POLYETHYLENE GLYCOL 3350 17 GRAM/DOSE ORAL POWDER 14. Marijuana use - ICD9: 305.20, ICD10: F12.90 - Advised on stopping 15. Smoker - ICD9: 305.1, ICD10: F17.200 - Cessation encouraged. - Counseling was given focusing on the harmful effects of this addiction especially given the patient's medical condition(s) which will be worsened because of the chemicals in tobacco. 16. Chronic rhinitis - ICD9: 472.0, ICD10: J31.0 - Cont Flonase. 17. Alkaline phosphatase elevation - ICD9: 790.5, ICD10: R74.8 - Await eval from gastro 18. Encounter for screening for diabetes mellitus - ICD9: V77.1, ICD10: Z13.1 Check - HGB A1C 19. Need for vaccination - ICD9: V05.9, ICD10: Z23 - TDAP VACCINE AGE 7+ IM: given 20. Screening for colon cancer - ICD9: V76.51, ICD10: Z12.11 Check - FECAL OCCULT BLOOD TEST 21. Obesity, Class I, BMI 30-34.9 - ICD9: 278.00, ICD10: E66.9 Weight increasing - Behavioral intervention: Explained to patient that her weight gain if multifactorial secondary to meds and more calories in then lost via physical activity. Signed Prescriptions Disp Refills famotidine (PEPCID) 20 mg tablet 60 tablet 5 Sig: Take 1 tablet by mouth twice daily. NORMAN: No multivitamin tablet 30 tablet 5 Sig: Take 1 tablet by mouth once daily. NORMAN: No polyethylene glycol 3350 (MIRALAX) 17 gram/dose powder 225 g 5 Sig: Take 17g in 8oz water once or twice a day for constipation until bowels are regular and then as needed NORMAN: No risperiDONE (RISPERDAL) 1 mg tablet Sig: Take 1 mg in AM and 2 mg in PM. [facility] acetaminophen (TYLENOL EXTRA STRENGTH) 500 mg tablet 120 tablet 5 Sig: Take 2 tablets by mouth every 6 hours as needed for pain. F/u in a year for complete PE John Sadler MD documented in this encounter [facility] 09-25-2021 History of Presen t illness Narrative Images from the original note were not included. [facility] VIRTUAL VISIT PROGRESS NOTE This is a virtual visit using [employer] video visit. It required patient-provider interaction for the medical decision making as documented below. Farnaz Umanzor is a 51 year old female seen for Pain. HISTORY OF PRESENT ILLNESS Farnaz Umanzor is a 51 year old female with PMH bipolar I, YANN, GERD, b/l carotid artery stenosis, HLD, current smoker (1 PPD), and current marijuana use. Patient referred by PCP after elevated CRP 3.4. Patient also with elevated alkaline phosphatase (150) with appointment scheduled with gastroenterology. Work-up by PCP showed negative MYRA, RF, Hep A/B/C and ESR was within normal limits. PCP has also ordered alk phos isoenzyme panel, and thyroid work-up as patient's T4 mildly decreased 0.8 with normal last TSH. Of note patient had elevated alkaline phosphatase (158) in July 2019 with increased liver fraction (121) and normal bone fraction which has remained elevated since. Patient presents virtually for total body pain and reported swelling. She reports her entire body has been painful for probably a few years. She reports nervous breakdown which resulted in her laying around for many years. She is unsure if it is related to lack of physical activity. However, she reports swelling diffusely especially in the hands, wrists, and knees which is new for the last few months. She reports it feels as if her extremities are heavy and that she constantly needs her muscles massaged. She reports pain is constant throughout the day. She has 30 minutes of morning stiffness. She also reports exercise intolerance. She reports leg claudication after 10 minutes. She reports she has unintentionally gained 15 pounds in the last 2 to 3 months. She additionally has abdominal pain which will be evaluated by GI. She has been instructed by PCP to discontinue ibuprofen. She does endorse dry eyes attributed to allergies, and dry mouth attributed to medications. Patient denies history of any autoimmune disease, psoriasis, IBD, inflammatory eye disease, or Raynaud's phenomenon. Patient denies fever, chills, unintentional hair loss, difficulty raising arms over head, jaw claudication, sudden visual loss, rash, photosensitivity, nasal/oral/genital ulcers, nail pitting, vaginal symptoms or urinary symptoms. PATIENT ENTERED DATA: PROMIS Assessments PROMIS Assessments 09/24/2021 Physical Health Percentile 0 % Mental Health Percentile 9 % Pain Score 1 Pain Interference Percentile 4 % Fatigue Percentile 3 % Physical Function Percentile 8 % RAPID 3 Bund[place] Activities of Daily Living 09/24/2021 1:32 PM Dress self? Without ANY difficulty Get in and out of bed? Without ANY difficulty Walk outdoors? Wash and dry body? Without ANY difficulty Get in and out of car? Without ANY difficulty RAPID 3 Disease Activity Weighed Score Levels: 0 - 1: Near Remission 1.3 - 2.0: Low Severity 2.3 - 4.0: Moderate Severity 4.3 - 10.0: High Severity RAPID-3 Weighed Score 09/24/2021 RAPID 3 Weighed Score Incomplete OTHER HISTORY REVIEWED (electronic chart updated): PAST MEDICAL HISTORY Diagnosis Date Alkaline phosphatase elevation 06/20/2019 Alkaline phosphatase elevation 06/20/2019 W/u was negative. Bilateral carotid artery stenosis 07/03/2019 US 06/2019: Rt 20-40% and Lt 0-20% repeat in 3-5 yrs Bipolar 1 disorder (HCC) 06/19/2019 Chronic rhinitis 07/25/[address] Gant Chronic right shoulder pain 07/21/2013 Current moderate episode of major depressive disorder without prior episode (HCC) 07/21/2013 [facility] YANN (generalized anxiety disorder) 06/19/2019 GERD without esophagitis 06/19/2019 Headache, unspecified headache type 06/19/2019 Ibuprofen overdose 07/21/2013 Marijuana use 06/19/2019 Mixed hyperlipidemia 06/20/2019 Pseudoseizure 04/06/2021 Dr. Maciel Smoker 06/19/2019 Started age 13 up to 1 PPD PAST SURGICAL HISTORY Procedure Laterality Date HYSTERECTOMY HX 2008 for heavy bleeding OOPHORECTOMY, PART/TOTAL UNILAT/BILAT right removed, because of a cyst TONSILLECTOMY HX FAMILY HISTORY Problem Relation Age of Onset None Other liver disease Colon Cancer Maternal Grandfather unknown if mother had colonoscopy Diabetes Mother Hyperlipidemia Mother other (not known) Father Diabetes Sister type 1 other (anancephaly) Brother Alzheimer's Disease Maternal Grandmother Coronary Artery Disease Maternal Grandmother 70's Breast Cancer Maternal Aunt other (stomach Cancer) Maternal Aunt other (accidental hanging) Brother Prostate Cancer No Family History Ovarian cancer No Family History Hypertension No Family History Kidney Disease No Family History Seizures No Family History Stroke No Family History Thyroid No Family History Social History Tobacco Use Smoking status: Current Every Day Smoker Packs/day: 1.00 Years: 30.00 Pack years: 30.00 Types: Cigarettes Smokeless tobacco: Never Used Vaping Use Vaping Use: Never used Substance Use Topics Alcohol use: Never Comment: 6 pack per month Drug use: Yes Types: Marijuana Current Outpatient Medications Medication Sig propranolol (INDERAL) 20 mg tablet Take 1 tablet by mouth once daily. ibuprofen (MOTRIN) 600 mg tablet Take 1 tablet by mouth every 8 hours as needed for pain. famotidine (PEPCID) 20 mg tablet Take 1 tablet by mouth twice daily. traZODone (DESYREL) 50 mg tablet Take 50 mg by mouth daily at bedtime. PARoxetine (PAXIL) 40 mg tablet Take 40 mg by mouth once daily. PARoxetine (PAXIL) 10 mg tablet Take 10 mg by mouth once daily. hydrOXYzine pamoate (VISTARIL) 50 mg capsule Take 50 mg by mouth three times daily as needed. fluticasone (FLONASE) 50 mcg/actuation nasal spray Use 2 Sprays in each nostril once daily. Rinse mouth after use. multivitamin tablet Take 1 tablet by mouth once daily. polyethylene glycol 3350 (MIRALAX) 17 gram/dose powder Take 17g in 8oz water once or twice a day for constipation until bowels are regular and then as needed mupirocin (BACTROBAN) 2 % ointment Apply to affected area three times daily. (Patient not taking: Reported on 04/06/2021 ) white petrolatum - mineral oil (EUCERIN) cream Apply to affected area as needed for Dry Skin (daily as needed). PARoxetine ER (PAXIL CR) 25 mg 24 hr tablet Take 2 tablets by mouth twice daily. [facility] (Patient not taking: Reported on 04/06/2021 ) amantadine HCl (SYMMETREL) 100 mg capsule Take 1 capsule by mouth twice daily. From [facility] risperiDONE (RISPERDAL) 1 mg tablet Take 1 tablet by mouth at bedtime as needed. From [facility] topiramate (TOPAMAX) 200 mg tablet Take 1 tablet by mouth twice daily. From [facility] No current facility-administered medications for this visit. ALLERGIES Allergen Reactions Bactrim [Sulfametho* Anaphylaxis Lamictal [Lamotrigi* Rash Cleocin [Clindamyci* Other: See Comments c diff REVIEW OF SYSTEMS: Review of Systems CONSTITUTION: Positive for: Recent weight change Negative for: Fever HEENT: Positive for: Dry mouth Negative for: Nosebleeds, Mouth sores and Trouble swallowing RESPIRATORY: Negative for: Cough, Shortness of breath and Pain with breathing GASTROINTESTINAL: Positive for: Abdominal pain Negative for: Melena, Diarrhea and Heartburn MUSCULOSKELETAL: Positive for: Arthralgias, Myalgias, Muscle weakness, Joint swelling and Morning Joint Stiffness NEUROLOGICAL: Positive for: Headaches and Numbness Negative for: Memory loss SKIN: Positive for: Nail changes Negative for: Rash, Skin changes and Hair loss EYES: Positive for: Eye dryness Negative for: Eye pain, Eye redness and visual disturbance CARDIOVASCULAR: Negative for: Chest pain and Leg swelling GENITOURINARY: Negative for: Dysuria and Hematuria HEMATOLOGIC/LYMPHATIC: Negative for: Swollen glands All other reviewed and negative other than HPI. PHYSICAL EXAMINATION: VIDEO EXAM: (if completed, performed via video enabled technology) GENERAL: alert and appropriate, in no distress, well-hydrated, well nourished and appears anxious SKIN: no rash noted HEAD: normocephalic, no abnormality or lesion noted EYES: no injection and visual acuity is grossly normal EARS: hearing grossly normal NOSE: external nose normal without rhinorrhea NECK: full ROM, no cervical LNs noted RESPIRATORY: breathing non-labored EXTREMITIES: Patient showed left hand hand over video. Hand appears enlarged, non-edematous, in the dorsum and proximal phalanxes possibly related to body habitus. There is no acute joint swelling or redness of the MCPs, PIPs, or DIPs. NEUROLOGIC: no obvious deficit Weight 08/07/2021 04/06/2021 02/20/2021 01/29/2021 01/08/2021 WEIGHT 191 lb 180 lb 168 lb 173 lb 3.2 oz 174 lb 9.6 oz Blood Pressure 08/07/2021 04/06/2021 02/20/2021 01/29/2021 01/08/2021 Systolic 98 96 122 122 112 Diastolic 68 70 70 82 82 ASSESSMENT: Diagnoses: (R79.82) CRP elevated (primary encounter diagnosis) (M25.50) Polyarthralgia (M79.18) Myofascial pain (R60.9) Swelling (Z86.79) H/O intermittent claudication Farnaz Umanzor is a 51 year old female with PMH bipolar I, YANN, GERD, b/l carotid artery stenosis, HLD, current smoker (1 PPD), and current marijuana use. Patient referred by PCP after elevated CRP 3.4. Patient also with elevated alkaline phosphatase (150) with appointment scheduled with gastroenterology. Work-up by PCP showed negative MYRA, RF, Hep A/B/C and ESR was within normal limits. PCP has also ordered alk phos isoenzyme panel, and thyroid work-up as patient's T4 mildly decreased 0.8 with normal last TSH. Of note patient had elevated alkaline phosphatase (158) in July 2019 with increased liver fraction (121) and normal bone fraction which has remained elevated since. Patient reporting total body pain for a few years and diffuse swelling. Unclear over video if hand size is related to swelling or body habitus. Unclear etiology of patient's symptoms. CRP may be elevated for variety of reasons. With negative MYRA and RF, current suspicion for rheumatologic arthropathy is low. However, other autoimmune etiologies to be investigated. Current differentials include myositis, IgG4 related disease, or fibromyalgia. Other possibilities include pain related to thyroid or liver disease. Rheumatologic work-up to be completed with serologies and imaging. Patient is to follow-up with gastroenterology for abdominal pain and elevated alkaline phosphatase which based on prior results is likely related to the liver fraction. Patient also with leg claudication per history. Diffuse swelling, leg claudication, and abdominal pain concerning for potential cardiovascular etiology. Consults placed. Outside echocardiogram in January 2021 showed stage I diastolic dysfunction of left ventricle and mild tricuspid valve insufficiency. Steroids and NSAIDs limited at this time due to patient's abdominal pain. Further recommendations pending work-up. Patient to follow with physician. Orders this visit: [facility] on 09/25/21 XR CHEST 2V FRONTAL/LAT XR HAND/WRIST SURVEY ARTHRITIS 1V PA BILATERAL XR FOOT SURVEY ARTHRITIS 1V AP BILATERAL XR CERV GENERAL 2V AP/LAT KING/ANGIOTENSIN BLD ALDOLASE BLD CBC + DIFF CCP ANTIBODY IGG IGG SUBCLASS 1,2,3,4 URINALYSIS, WITH MICROSCOPIC ANTI ABENA ID ANTI NEUTRO CYTO AB C-REACTIVE PROTEIN (CRP) C3 COMPLEMENT BLD C4 COMPLEMENT BLD CK CREATINE KINASE COMP METABOLIC PANEL G-6-PD QUANTITATIVE IMMUNOGLOBULINS NAMRATA LKM AB SED RATE WESTERGREN SMOOTH MUSCLE AB PNL SCRN MYRA BY IFA WITH REFLEX BLOOD TB SCREEN DNA ANTIBODY DS BLD PM-SCL ANTIBODY POLYMYOSITIS AND DERMATOMYOSITIS PANEL VITAMIN D1 25-DIHYDR PROTEIN CREATININE RATIO CONSULT TO RHEUM/IMMUN DISEASE CONSULT TO CARDIOLOGY CONSULT TO VASCULAR MEDICINE PLAN: Labs and x-rays Consult to cardiology and vascular medicine Follow with gastroenterology Further recommendations pending work-up Follow-up with physician. Management may need to be initiated over MyChart due to physician availability. If work-up negative, follow-up will be as needed. Return in about 3 months (around 12/26/2021). There are no Patient Instructions on file for this visit. I spent a total of 35 minutes on the date of the service which included preparing to see the patient, [id number] patient care, completing clinical documentation, obtaining and/or reviewing separately obtained history, performing a medically appropriate examination, counseling and educating the patient/family/caregiver and ordering medications, tests, or procedures Nayla Fagan PA-C [facility] Date: September 25, 2021 Time: 10:05 AM documented in this encounter [facility] 08-13-2021 History of Presen t illness Narrative RADIOLOGY SERVICE PROGRESS NOTE SERVICE DATE: 08/13/2021 SERVICE TIME: 10:03 AM PATIENT IDENTITY VERIFICATION COMPLETED USING TWO (2) STANDARD IDENTIFIERS: Name and Date of confirmed by patient verbally FALL SCREENING: Has the patient had 2 falls in the last year or 1 fall with injury or currently using an Ambulatory Assistive Device (Walker, Cane, Wheelchair, Crutches, etc.)? No PATIENT GENDER DATA: .female : No status: No ALLERGIES: Reviewed and unchanged MEDICATIONS REVIEWED: No PATIENT RELEVANT IMPLANT DATA REVIEWED: Not Applicable CREATININE: Creatinine Date Value Ref Range Status 08/07/2021 1.05 (H) 0.58 - 0.96 mg/dL Final 04/06/2021 0.94 0.58 - 0.96 mg/dL Final 12/15/2020 1.02 (H) 0.58 - 0.96 mg/dL Final Estimated Glomerular Filtration Rate Date Value Ref Range Status 08/07/2021 66 >=60 mL/min/1.73m Final Comment: Estimated Glomerular Filtration Rate (eGFR) is calculated using the 2020 CKD-EPI creatinine equation. This equation utilizes serum creatinine, sex, and age as parameters. The creatinine assay has traceable calibration to isotope dilution-mass spectrometry. Refer to KDIGO guidelines for clinical interpretation. In patients with unstable renal function, e.g. those with acute kidney injury, the eGFR may not accurately reflect actual GFR. eGFR- Date Value Ref Range Status 04/06/2021 >60 Final P.O.C.T. RESULTS: N/A August 13, [address] PERFORMED: No IV SITE: Ambulatory: A peripheral IV was started in the Right antecubital site with a Angio cath: 24 gauge. POST EXAM PIV STATUS: Discontinued PROCEDURE TYPE: NM INJECT: Hepatobiliary with Gallbladder EF. 5.5 mCi Tc99m CHOLETEC. 8 ounces of Ensure Plus given PO at 11:22 for EF. ADMINISTRATION TIME: 10:18 PATIENT DISCHARGED TO: Ambulatory patient, left [place] department area. A Diagnostic radioactive procedure has taken place, with no further precautions necessary other than routine body substance precautions. More information regarding radiation safety can be found using this link: [email or web address] SIGNATURE: RT Maryana(R) PATIENT NAME: Farnaz Umanzor DATE: August 13, 2021 TIME: 10:30 AM PAGER/CONTACT #: documented in this encounter [facility] 08-07-2021 History of Presen t illness Narrative Chief Complaint Patient presents with: ED Follow-up: Patient was seen at [facility] ER HPI Farnaz Uamnzor is a 50 year old female who presents here today for ER Follow Up.. Patient with hx of YANN, bipolar, depression, hlp, migraines, and more recently dx with likely pseudoseizures. Concerns: Patient indicated that needs to have her risperidone but that is prescribed by the counseling center; patient indicated the physician who is out on leave and they have no openings; they recommended that see talk to her PCP. Was in [facility] in February 2021. 1. Patient indicated that she has been having consistent pain in all her muscles and joints. Patient indicated that she is at pain scale of 10. 2. Fatigue and wants to sleep all the time. Patient's renal panel in ER also showed some impairment. Per ER note patient presented with c/o RUQ pain that would radiate into the right flank area. Sometimes has nausea and vomiting. No significant diarrhea. There is a family Hx of biliary issues. Patient complains of multiple body pains that have been going on for over a year. Has never discussed before. Has tried ibuprofen but no longer helping. Now smokes marijuana about 15 times a month (though later in appt aid she limits herself to two bowls a day to help, has been smoking for over 6 years. Past medical history, appointments, medications, allergies reviewed. Previous Medical History PAST MEDICAL HISTORY Diagnosis Date Alkaline phosphatase elevation 06/20/2019 Alkaline phosphatase elevation 06/20/2019 W/u was negative. Bilateral carotid artery stenosis 07/03/2019 US 06/2019: Rt 20-40% and Lt 0-20% repeat in 3-5 yrs Bipolar 1 disorder (HCC) 06/19/2019 Chronic rhinitis 07/25/[address] Gant Chronic right shoulder pain 07/21/2013 Current moderate episode of major depressive disorder without prior episode (HCC) 07/21/2013 [facility] YANN (generalized anxiety disorder) 06/19/2019 GERD without esophagitis 06/19/2019 Headache, unspecified headache type 06/19/2019 Ibuprofen overdose 07/21/2013 Marijuana use 06/19/2019 Mixed hyperlipidemia 06/20/2019 Pseudoseizure 04/06/2021 Dr. Maciel Smoker 06/19/2019 Started age 13 up to 1 PPD Previous Surgical History PAST SURGICAL HISTORY Procedure Laterality Date HYSTERECTOMY HX 2008 for heavy bleeding OOPHORECTOMY, PART/TOTAL UNILAT/BILAT right removed, because of a cyst TONSILLECTOMY HX Family History FAMILY HISTORY Problem Relation Age of Onset None Other liver disease Colon Cancer Maternal Grandfather unknown if mother had colonoscopy Diabetes Mother Hyperlipidemia Mother other (not known) Father Diabetes Sister type 1 other (anancephaly) Brother Alzheimer's Disease Maternal Grandmother Coronary Artery Disease Maternal Grandmother 70's Breast Cancer Maternal Aunt other (stomach Cancer) Maternal Aunt other (accidental hanging) Brother Prostate Cancer No Family History Ovarian cancer No Family History Hypertension No Family History Kidney Disease No Family History Seizures No Family History Stroke No Family History Thyroid No Family History Patient Allergies ALLERGIES Allergen Reactions Bactrim [Sulfametho* Anaphylaxis Lamictal [Lamotrigi* Rash Cleocin [Clindamyci* Other: See Comments c diff Current Medications Current Outpatient Medications on File Prior to Visit Medication Sig propranolol (INDERAL) 20 mg tablet Take 1 tablet by mouth once daily. ibuprofen (MOTRIN) 600 mg tablet Take 1 tablet by mouth every 8 hours as needed for pain. famotidine (PEPCID) 20 mg tablet Take 1 tablet by mouth twice daily. traZODone (DESYREL) 50 mg tablet Take 50 mg by mouth daily at bedtime. PARoxetine (PAXIL) 40 mg tablet Take 40 mg by mouth once daily. PARoxetine (PAXIL) 10 mg tablet Take 10 mg by mouth once daily. hydrOXYzine pamoate (VISTARIL) 50 mg capsule Take 50 mg by mouth three times daily as needed. fluticasone (FLONASE) 50 mcg/actuation nasal spray Use 2 Sprays in each nostril once daily. Rinse mouth after use. multivitamin tablet Take 1 tablet by mouth once daily. levETIRAcetam (KEPPRA) 1,000 mg tablet Take 1 tablet by mouth twice daily. (Patient taking differently: Take 1,000 mg by mouth twice daily. Patient is taking total of 750 mg daily. ) polyethylene glycol 3350 (MIRALAX) 17 gram/dose powder Take 17g in 8oz water once or twice a day for constipation until bowels are regular and then as needed mupirocin (BACTROBAN) 2 % ointment Apply to affected area three times daily. (Patient not taking: Reported on 04/06/2021 ) white petrolatum - mineral oil (EUCERIN) cream Apply to affected area as needed for Dry Skin (daily as needed). PARoxetine ER (PAXIL CR) 25 mg 24 hr tablet Take 2 tablets by mouth twice daily. [facility] (Patient not taking: Reported on 04/06/2021 ) amantadine HCl (SYMMETREL) 100 mg capsule Take 1 capsule by mouth twice daily. [facility] risperiDONE (RISPERDAL) 1 mg tablet Take 1 tablet by mouth at bedtime as needed. [facility] topiramate (TOPAMAX) 200 mg tablet Take 1 tablet by mouth twice daily. [facility] No current facility-administered medications on file prior to visit. Social History Social History Tobacco Use Smoking status: Current Every Day Smoker Packs/day: 1.00 Years: 30.00 Pack years: 30.00 Types: Cigarettes Smokeless tobacco: Never Used Vaping Use Vaping Use: Never used Substance Use Topics Alcohol use: Never Comment: 6 pack per month Drug use: Yes Types: Marijuana Review of Symptoms REVIEW OF SYSTEMS See HPI EXAM: LMP 06/28/2008 General Appearance: Well appearing, alert, in no acute distress, well-hydrated, well nourished. Patient comfortable during exam with noticeable signs of pain or facial grimacing with movements. Would put her pain level more at a 2-3/10. Lungs: Lungs clear to auscultation. No wheezing, rhonchi, rales.. Heart: RRR without murmur, gallop, or rubs. No ectopy. Abdomen: Abdomen soft, no guarding or rebound pain. Has tenderness in the RUQ and positive Jarvis's sign. Bowel sounds normal. No masses, organomegaly. Health Maintenance List COVID-19 VACCINE(1) Never done HEPATITIS C SCREENING Never done HIV SCREENING Never done DTAP,TDAP,TD(1 - Tdap) Never done ONE PNEUMOVAX PRIOR TO AGE 67 Never done COLORECTAL CANCER SCREENING Never done MAMMOGRAM due on 06/24/2020 DIABETES SCREEN due on 04/06/2024 LIPID SCREEN due on 06/19/2024 INFLUENZA Completed MENINGOCOCCAL CONJUGATE Aged Out PAP TESTING Discontinued HPV TESTING Discontinued Data reviewed ER records from 07/27/2021 A/P ASSESSMENT/PLAN: 1. RUQ pain - ICD9: 789.01, ICD10: R10.11 (primary diagnosis) Check - COMP METABOLIC PANEL - AMYLASE BLD - LIPASE BLD - HEP ACUTE PANEL/RNA - NM HEPATOBILIARY W EF AND/OR RX pt had US when in [place] [facility] on 07/27/2021 that was non diagnostic. need HIDA to r/o biliary dyskinesia. 2. Myalgia - ICD9: 729.1, ICD10: M79.10 Check - MYRA BY IFA SCREEN - C-REACTIVE PROTEIN (CRP) - RHEUMATOID FACTOR BL - SED RATE WESTERGREN Suspect she has fibromyalgia. 3. Elevated serum alkaline phosphatase level - ICD9: 790.5, ICD10: R74.8 check - COMP METABOLIC PANEL - GGT BLD - HEP ACUTE PANEL/RNA - ALK PHOS ISOENZYM BL - ALPHA FETOPROTEIN BL - MITOCHONDRIAL AB SCR 4. Renal insufficiency - ICD9: 593.9, ICD10: N28.9 Check - COMP METABOLIC PANEL 5. Right upper quadrant pain - ICD9: 789.01, ICD10: R10.11 Check - NM HEPATOBILIARY W EF AND/OR RX 6. Marijuana use - ICD9: 305.20, ICD10: F12.90 - Advised on health risks. 7. Weight gain - ICD9: 783.1, ICD10: R63.5 Check - TSH BLD - T4 FREE/FREE THYROX Advised on reduced fat diet. Patient instructed [facility] for her med [facility]ills. John Sadler MD documented in this encounter [facility] 07-29-2021 Miscellaneous Notes Spoke to patient and r/s Vandana Gaines Ma Patient was cancelled today due to provider out. Patient is r/s for 08/21 and requesting a sooner appointment due to [facility] Er Dx. Please advise the patient. documented in this encounter [facility] 07-27-2021 History of Presen t illness Narrative Called into room by SAMANTHA for concerns patient required higher level of care. Right upper abdomen and right rib pain. it's greater than a 10 Holding right upper abdomen. Endorse she has had N/V She is hunched over and endorses pain with walking. Given her severity of pain she was directed to ED as concerns for intraabdominal and pain control. Declines EMS, daughter who drove her here will take her to ED. documented in this encounter [facility] 05-25-2021 Miscellaneous Notes MYChart message received from patient requesting medication for headaches, currently using Motrin, unable to see Neurology until July 2021. Phone call placed to obtain medication clarification, current symptoms no answer, unable to leave a message. Precious Boogie LPN documented in this encounter [facility] 06-19-2019 History of Past i llness Narrative Problem Noted Date Resolved Date Well adult exam 06/19/2019 02/20/2021 Overview: last done: 06/19/2019 documented as of this encounter (statuses as of 07/27/2021) [address]25-2020 History of Past illness Narrative* Problem Noted Date Resolved Date Well adult exam 06/19/2019 02/20/2021 Overview: last done: 06/19/2019 documented as of this encounter (statuses as of 07/29/2021) [address]25-2020 History of Past illness Narrative* Problem Noted Date Resolved Date Well adult exam 06/19/2019 02/20/2021 Overview: last done: 06/19/2019 documented as of this encounter (statuses as of 08/08/2021) [address]25-2020 History of Past illness Narrative* Problem Noted Date Resolved Date Well adult exam 06/19/2019 02/20/2021 Overview: last done: 06/19/2019 documented as of this encounter (statuses as of 08/14/2021) [address]25-2020 History of Past illness Narrative* Problem Noted Date Resolved Date Well adult exam 06/19/2019 02/20/2021 Overview: last done: 06/19/2019 documented as of this encounter (statuses as of 09/25/2021) [address]25-2020 History of Past illness Narrative* Problem Noted Date Resolved Date Well adult exam 06/19/2019 02/20/2021 Overview: last done: 06/19/2019 documented as of this encounter (statuses as of 09/29/2021) [facility] Right upper quadrant abdominal pain- Primary Abdominal pain, right upper quadrant [facility] noteNo assessment information availableWAshtab[facility] Work Phone: Evaluation note* Diagnosis RUQ pain- Primary Abdominal pain, right upper quadrant Myalgia Mylagia and myositis, unspecified Elevated serum alkaline phosphatase level Other nonspecific abnormal serum enzyme levels Renal insufficiency Unspecified disorder of kidney and ureter Right upper quadrant pain Abdominal pain, right upper quadrant Marijuana use Cannabis abuse, unspecified Weight gain Abnormal weight gain [facility]* Diagnosis RUQ pain Abdominal pain, right upper quadrant Right upper quadrant pain Abdominal pain, right upper quadrant [facility]* Diagnosis CRP elevated- Primary Elevated C-reactive protein (CRP) Polyarthralgia Pain in joint, multiple sites Myofascial pain Mylagia and myositis, unspecified Swelling Edema H/O intermittent claudication Personal history of unspecified circulatory disease [facility]* Diagnosis Well adult exam- Primary Routine general medical examination at a [facility] facility Mixed hyperlipidemia Bilateral carotid artery stenosis Occlusion and stenosis of carotid artery without mention of cerebral infarction Migraine without aura and without status migrainosus, not intractable Migraine without aura, without mention of intractable migraine without mention of status migrainosus GERD without esophagitis Esophageal reflux YANN (generalized anxiety disorder) Generalized anxiety disorder Current moderate episode of major depressive disorder without prior episode (HCC) Bipolar 1 disorder (HCC) Bipolar I disorder, most recent episode (or current) unspecified Pseudoseizure Other convulsions Encounter for immunization Need for other specified prophylactic vaccination against single bacterial disease Screening for HIV (human immunodeficiency virus) Special screening examination for other specified viral diseases Arthralgia, unspecified joint Acute constipation Unspecified constipation Marijuana use Cannabis abuse, unspecified Smoker Tobacco use disorder Chronic rhinitis Alkaline phosphatase elevation Other nonspecific abnormal serum enzyme levels Encounter for screening for diabetes mellitus Screening for diabetes mellitus Need for vaccination Need for prophylactic vaccination and inoculation against unspecified single disease Screening for colon cancer Special screening for malignant neoplasms, colon Obesity, Class I, BMI 30-34.9 Obesity, unspecified [facility] Diagnosis Alkaline phosphatase elevation- Primary Other nonspecific abnormal serum enzyme levels Fatty liver Other chronic nonalcoholic liver disease [facility]* Diagnosis Encounter for screening mammogram for breast cancer [facility]* Diagnosis Colon cancer screening- Primary Special screening for malignant neoplasms, colon Elevated alkaline phosphatase level Other nonspecific abnormal serum enzyme levels LUQ pain Abdominal pain, left upper quadrant Epigastric pain Abdominal pain, epigastric Bloating Flatulence, eructation, and gas pain Early satiety RUQ pain Abdominal pain, right upper quadrant Hepatomegaly Nausea Nausea alone [facility]* Diagnosis Elevated alkaline phosphatase level Other nonspecific abnormal serum enzyme levels LUQ pain Abdominal pain, left upper quadrant Epigastric pain Abdominal pain, epigastric Bloating Flatulence, eructation, and gas pain Early satiety RUQ pain Abdominal pain, right upper quadrant Hepatomegaly Nausea Nausea alone documented in this encounter [facility] note* Diagnosis Mixed hyperlipidemia- Primary documented in this encounter [facility] note* Diagnosis LUQ pain Abdominal pain, left upper quadrant Epigastric pain Abdominal pain, epigastric Bloating Flatulence, eructation, and gas pain Early satiety Colon cancer screening Special screening for malignant neoplasms, colon Elevated alkaline phosphatase level Other nonspecific abnormal serum enzyme levels documented in this encounter [facility] note* Diagnosis LUQ pain Abdominal pain, left upper quadrant Epigastric pain Abdominal pain, epigastric Bloating Flatulence, eructation, and gas pain Early satiety Nausea Nausea alone documented in this encounter [facility] note* Diagnosis Encounter for screening mammogram for breast cancer documented in this encounter [facility] note* Diagnosis Well adult exam- Primary Routine general medical examination at a health care facility Encounter for screening mammogram for breast cancer Immunity status testing Antibody response examination Mixed hyperlipidemia Gastroesophageal reflux disease without esophagitis Esophageal reflux YANN (generalized anxiety disorder) Generalized anxiety disorder Current moderate episode of major depressive disorder without prior episode (HCC) Bipolar 1 disorder (HCC) Bipolar I disorder, most recent episode (or current) unspecified Marijuana use Cannabis abuse, unspecified Migraine without aura and without status migrainosus, not intractable Migraine without aura, without mention of intractable migraine without mention of status migrainosus Smoker Tobacco use disorder GERD without esophagitis Esophageal reflux Obesity, Class I, BMI 30-34.9 Obesity, unspecified Screening for diabetes mellitus Screening for lung cancer documented in this encounter [facility] note* Diagnosis Elevated triglycerides with high cholesterol- Primary Mixed hyperlipidemia Hypokalemia Hypopotassemia Vitamin D deficiency Unspecified vitamin D deficiency Mixed hyperlipidemia Prediabetes Other abnormal glucose documented in this encounter [facility] note* Diagnosis Encounter for screening mammogram for breast cancer documented in this encounter [facility] note* Diagnosis Hypokalemia- Primary Hypopotassemia documented in this encounter [facility] for referral (narrative)* Diagnostic Procedure Only (Routine) - Authorized Specialty Diagnoses / Procedures Referred By Oral valera Referred To Contact MOLECULAR & FUNCTIONAL IMAGING Diagnoses RUQ pain Right upper quadrant pain Procedures NM HEPATOBILIARY W EF AND/OR RX HEPATOBIL SYST IMAG INC GB W/PHARMA INTERVYAMILJ John Sadler MD [address] [place] [address] Molecular & Functional Imaging [address] [place] [address] Referral ID Status Reason Start Date Expiration Date Visits Requested Visits Authorized [id number] Authorized Auto-Generat ed Referral 08/07/2021 09/21/2021 1 1 [facility] for referral (narrative)* Diagnostic Procedure Only (Routine) - Closed Specialty Diagnoses / Procedures Referred By Contac t Referred To Contact MOLECULAR & FUNCTIONAL IMAGING Diagnoses RUQ pain Right upper quadrant pain Procedures NM HEPATOBILIARY W EF AND/OR RX HEPATOBIL SYST IMAG INC GB W/PHARMA INTERVJohn Akbar MD [address] [place], [place] [id number] Molecular & Functional Imaging [address] [place] [address] Referral ID Status Reason Start Date Expiration Date V isits Requested Visits Authorized [id number] Closed Auto-Generate d Referral 08/07/2021 09/21/2021 1 1 [facility] for referral (narrative)* Diagnostic Procedure Only (Routine) - Pending Review Specialty Diagnoses / Procedures Referred By Contac t Referred To Contact XR IMAGING Diagnoses CRP elevated Polyarthralgia Swelling H/O intermittent claudication Myofascial pain Procedures XR CERV GENERAL 2V AP/LAT RADEX SPINE CERVICAL 2 OR 3 VIEWS Nayla Fagan PA-C [address] [place] [address] Xr Imaging Referral ID Status Reason Start Date Expiration Date Visits Requested Visits Authorized [id number] Pending Review Auto-Generat ed Referral 09/25/2021 10/25/2022 1 1 * Diagnostic Procedure Only (Routine) - Pending Review Specialty Diagnoses / Procedures Referred By Contac t Referred To Contact XR IMAGING Diagnoses CRP elevated Polyarthralgia Swelling H/O intermittent claudication Myofascial pain Procedures XR FOOT SURVEY ARTHRITIS 1V AP BILATERAL JOINT SURVEY SINGLE VIEW 2 OR MORE JOINTS Nayla Fagan PA-C [address] [place] [address] Xr Imaging Referral ID Status Reason Start Date Expiration Date Visits Requested Visits Authorized [id number] Pending Review Auto-Generat ed Referral 09/25/2021 10/25/2022 1 1 * Diagnostic Procedure Only (Routine) - Pending Review Specialty Diagnoses / Procedures Referred By Contac t Referred To Contact XR IMAGING Diagnoses CRP elevated Polyarthralgia Swelling H/O intermittent claudication Myofascial pain Procedures XR HAND/WRIST SURVEY ARTHRITIS 1V PA BILATERAL JOINT SURVEY SINGLE VIEW 2 OR MORE JOINTS Nayla Fagan PA-C [address] [place] [address] Xr Imaging Referral ID Status Reason Start Date Expiration Date Visits Requested Visits Authorized [id number] Pending Review Auto-Generat ed Referral 09/25/2021 10/25/2022 1 1 * Consult, Test, Treat (Routine) - Authorized Specialty Diagnoses / Procedures Referred By Contac t Referred To Contact Vascular Medicine Diagnoses Swelling H/O intermittent claudication Procedures CONSULT TO VASCULAR MEDICINE OFFICE/OUTPATIENT [facility] MDM 60-74 MINUTES Nayla Fagan PA-C [address] [place] [address] Referral ID Status Reason Start Date Expiration Date Visits Requested Visits Authorized [id number] Authorized PCP Requested Referral 09/25/2021 09/25/2022 1 1 * Consult, Test, Treat (Routine) - Authorized Specialty Diagnoses / Procedures Referred By Contac t Referred To Contact Cardiology Diagnoses Swelling H/O intermittent claudication Procedures CONSULT TO CARDIOLOGY OFFICE/OUTPATIENT [facility] MDM 60-74 MINUTES Nayla Fagan PA-C [address] [place] [address] Referral ID Status Reason Start Date Expiration Date Visits Requested Visits Authorized [id number] Authorized PCP Requested Referral 09/25/2021 09/25/2022 1 1 [facility] for referral (narrative)* Diagnostic Procedure Only (Routine) - Pending Review Specialty Diagnoses / Procedures Referred By Oral valera Referred To Contact [facility] Diagnoses Encounter for screening mammogram for breast cancer Procedures KENDRICK SCREENING SCREENING MAMMOGRAPHY BI 2-VIEW BREAST INC CAD John Sadler MD [address] [place] [address] [facility] [address] [place] [address] Referral ID Status Reason Start Date Expiration Date Visits Requested Visits Authorized [id number] Pending Review Auto-Generat ed Referral 10/21/2021 11/20/2022 1 1 [facility] for referral (narrative)* Outpatient Procedure (Routine) - Closed Specialty Diagnoses / Procedures Referred By Contac t Referred To Contact [facility] Diagnoses Colon cancer screening Elevated alkaline phosphatase level Left upper quadrant pain Epigastric pain Abdominal distension (gaseous) Early satiety Procedures COLONOSCOPY SCREENING COLONOSCOPY FLX DX W/COLLJ SPEC WHEN PFRMD ESOPHAGOGASTRODUODENOSC OPY TRANSORAL DIAGNOSTIC Aleah Peralta APRN.GENERAL OPERATIONS AGENT [address] [place] [address] [facility] [address] [place] [address] Referral ID Status Reason Start Date Expiration Date V isits Requested Visits Authorized [id number] Closed Auto-Generate d Referral 12/09/2021 02/06/2022 1 1 * Outpatient Procedure (Routine) - Closed Specialty Diagnoses / Procedures Referred By Oral valera Referred To Contact ENDOSCOPY Diagnoses LUQ pain Epigastric pain Bloating Early satiety Procedures EGD DIAGNOSTIC ESOPHAGOGASTRODUODENOSCOPY TRANSORAL DIAGNOSTIC Aleah Peralta APRN.GENERAL OPERATIONS AGENT [address] [place] [address] [facility] [address] [place] [address] Referral ID Status Reason Start Date Expiration Date V isits Requested Visits Authorized [id number] Closed Auto-Generate d Referral 11/10/2021 11/10/2022 1 1 [facility] for referral (narrative)* Diagnostic Procedure Only (Routine) - Pending Review Specialty Diagnoses / Procedures Referred By Oral valera Referred To Contact [facility] Diagnoses Encounter for screening mammogram for breast cancer Procedures KENDRICK SCREENING SCREENING MAMMOGRAPHY BI 2-VIEW BREAST INC CAD John Sadler MD [address] [place] [address] [facility] [address] [place] [address] Referral ID Status Reason Start Date Expiration Date Visits Requested Visits Authorized [id number] Pending Review Auto-Generat ed Referral 09/14/2023 10/13/2024 1 1 [facility] for visit Narrative* Outpatient Procedure (Routine) - Closed Specialty Diagnoses / Procedures Referred By Oral valera Referred To Contact [facility] Diagnoses Colon cancer screening Elevated alkaline phosphatase level Left upper quadrant pain Epigastric pain Abdominal distension (gaseous) Early satiety Procedures COLONOSCOPY SCREENING COLONOSCOPY FLX DX W/COLLJ SPEC WHEN PFRMD ESOPHAGOGASTRODUODENOSC OPY TRANSORAL DIAGNOSTIC Aleah Peralta APRN.GENERAL OPERATIONS AGENT [address] [place] [address] [facility] [address] [place] [address] Referral ID Status Reason Start Date Expiration Date V isits Requested Visits Authorized [id number] Closed Auto-Generate d Referral 12/09/2021 02/06/2022 1 1 [facility] Diagnostic Procedure Only (Routine) - Closed Specialty Diagnoses / Procedures Referred By Oral t Referred To Contact [facility] Diagnoses Encounter for screening mammogram for breast cancer Procedures KENDRICK SCREENING W BOBO SCREENING DIGITAL BREAST TOMOSYNTHESIS BI SCREENING MAMMOGRAPHY BI 2-VIEW BREAST INC Stacia Estrella PA-C [address] [place] [address] Phone: tel: fax: [facility] [address] [place] [address] Referral ID Status Reason Start Date Expiration Date V isits Requested Visits Authorized [id number] Closed Auto-Generate d Referral 08/14/2024 09/13/2025 1 1 [facility] Summary Purpose Family History No Family History Records Found Relationship Condition Age at Onset Recorded Date/T christopher mother Diabetes mellitus Unknown Hypertension Unknown Rheumatoid arthritis Unknown father Malignant neoplasm Unknown uncle Cerebral aneurysm Unknown Advance Directives No Advanced Directives Records Found Advance Directive Response Recorded Date/ Time Advance Directives No May 07, 2021 11:59am Living Will No July 27, 2021 2:50pm Power of Mixer Operator No July 27 2:50pm Chief Complaint and Reason for Visit Chief Complaint ABD PAIN Reason for Referral Specialty Diagnoses / Procedures Referred By Oral t Referred To Contact Gastroenterology Diagnoses Alkaline phosphatase elevation Procedures CONSULT TO GASTROENTEROLOGY OFFICE/OUTPATIENT [facility] 60-74 MINUTES John Sadler MD [address] [place] [address] Referral ID Status Reason Start Date Expiration Date Visits Requested Visits Authorized [id number] Authorized PCP Requested Referral 10/20/2021 10/20/2022 1 1 Specialty Diagnoses / Procedures Referred By Oral t Referred To Contact CT IMAGING Diagnoses Elevated alkaline phosphatase level LUQ pain Epigastric pain Bloating Early satiety RUQ pain Hepatomegaly Nausea Procedures CT ABD/PEL W IVCON CT ABD & PELVIS W/CONTRAST Aleah Peralta, SPINAL SURGEON.GENERAL OPERATIONS AGENT [address] [place] [address] Ct Imaging Referral ID Status Reason Start Date Expiration Date Visits Requested Visits Authorized [id number] Additional Clinical Info Needed Auto-Generat ed Referral 11/10/2021 12/10/2022 1 1 Specialty Diagnoses / Procedures Referred By Contac t Referred To Contact [facility] Diagnoses Colon cancer screening Elevated alkaline phosphatase level Procedures COLONOSCOPY SCREENING COLONOSCOPY FLX DX W/COLLJ SPEC WHEN PFRMD Aleah Peralta, SPINAL SURGEON.GENERAL OPERATIONS AGENT [address] [place] [address] [facility] [address] [place] [address] Referral ID Status Reason Start Date Expiration Date Visits Requested Visits Authorized [id number] Pending Review Auto-Generat ed Referral 11/10/2021 11/10/2022 1 1 Specialty Diagnoses / Procedures Referred By Contac t Referred To Contact [facility] Diagnoses LUQ pain Epigastric pain Bloating Early satiety Procedures EGD DIAGNOSTIC ESOPHAGOGASTRODUODENOSC OPY TRANSORAL DIAGNOSTIC Aleah Peralta APRN.GENERAL OPERATIONS AGENT [address] [place] [address] [facility] [address] [place] [address] Referral ID Status Reason Start Date Expiration Date Visits Requested Visits Authorized [id number] Pending Review Auto-Generat ed Referral 11/10/2021 11/10/2022 1 1 Referral ID Status Reason Start Date Expiration Date V isits Requested Visits Authorized [id number] Closed Auto-Generate d Referral 11/10/2021 12/26/2021 1 1 Additional Source Comments INFORMATION SOURCE (unrecogn ized section and content) DATE CREATED AUTHOR 10/19/2017 [facility] DATE CREATED AUTHOR AUTHOR'S ORGANIZ ATION 09/20/2024 [facility] DATE CREATED AUTHOR AUTHOR'S ORGANIZ ATION 09/28/2024 [facility] Source Comments (unrecognize d section and content) In the event this informatio n is protected by the Federal Confidentiality of Alcohol and Drug Abuse Patient Records regulations: The Federal rules restrict any use of the information to criminally investigate or prosecute any alcohol or drug abuse patient.[facility] the event this information is protected by the Federal Confidentiality of Alcohol and Drug Abuse Patient Records regulations: The Federal rules restrict any use of the information to criminally investigate or prosecute any alcohol or drug abuse patient.[facility] the event this information is protected by the Federal Confidentiality of Alcohol and Drug Abuse Patient Records regulations: The Federal rules restrict any use of the information to criminally investigate or prosecute any alcohol or drug abuse patient.[facility] CenterIn the event this information is protected by the Federal Confidentiality of Alcohol and Drug Abuse Patient Records regulations: The Federal rules restrict any use of the information to criminally investigate or prosecute any alcohol or drug abuse patient.[facility] CenterIn the event this information is protected by the Federal Confidentiality of Alcohol and Drug Abuse Patient Records regulations: The Federal rules restrict any use of the information to criminally investigate or prosecute any alcohol or drug abuse patient.[facility] CenterIn the event this information is protected by the Federal Confidentiality of Alcohol and Drug Abuse Patient Records regulations: The Federal rules restrict any use of the information to criminally investigate or prosecute any alcohol or drug abuse patient.[facility] CenterIn the event this information is protected by the Federal Confidentiality of Alcohol and Drug Abuse Patient Records regulations: The Federal rules restrict any use of the information to criminally investigate or prosecute any alcohol or drug abuse patient.[facility] CenterIn the event this information is protected by the Federal Confidentiality of Alcohol and Drug Abuse Patient Records regulations: The Federal rules restrict any use of the information to criminally investigate or prosecute any alcohol or drug abuse patient.[facility] CenterIn the event this information is protected by the Federal Confidentiality of Alcohol and Drug Abuse Patient Records regulations: The Federal rules restrict any use of the information to criminally investigate or prosecute any alcohol or drug abuse patient.[facility] CenterIn the event this information is protected by the Federal Confidentiality of Alcohol and Drug Abuse Patient Records regulations: The Federal rules restrict any use of the information to criminally investigate or prosecute any alcohol or drug abuse patient.[facility] CenterIn the event this information is protected by the Federal Confidentiality of Alcohol and Drug Abuse Patient Records regulations: The Federal rules restrict any use of the information to criminally investigate or prosecute any alcohol or drug abuse patient.[facility] CenterIn the event this information is protected by the Federal Confidentiality of Alcohol and Drug Abuse Patient Records regulations: The Federal rules restrict any use of the information to criminally investigate or prosecute any alcohol or drug abuse patient.[facility] CenterIn the event this information is protected by the Federal Confidentiality of Alcohol and Drug Abuse Patient Records regulations: The Federal rules restrict any use of the information to criminally investigate or prosecute any alcohol or drug abuse patient.[facility] CenterIn the event this information is protected by the Federal Confidentiality of Alcohol and Drug Abuse Patient Records regulations: The Federal rules restrict any use of the information to criminally investigate or prosecute any alcohol or drug abuse patient.[facility] CenterIn the event this information is protected by the Federal Confidentiality of Alcohol and Drug Abuse Patient Records regulations: The Federal rules restrict any use of the information to criminally investigate or prosecute any alcohol or drug abuse patient.[facility] CenterIn the event this information is protected by the Federal Confidentiality of Alcohol and Drug Abuse Patient Records regulations: The Federal rules restrict any use of the information to criminally investigate or prosecute any alcohol or drug abuse patient.[facility] CenterIn the event this information is protected by the Federal Confidentiality of Alcohol and Drug Abuse Patient Records regulations: The Federal rules restrict any use of the information to criminally investigate or prosecute any alcohol or drug abuse patient.[facility] CenterIn the event this information is protected by the Federal Confidentiality of Alcohol and Drug Abuse Patient Records regulations: The Federal rules restrict any use of the information to criminally investigate or prosecute any alcohol or drug abuse patient.[facility] CenterIn the event this information is protected by the Federal Confidentiality of Alcohol and Drug Abuse Patient Records regulations: The Federal rules restrict any use of the information to criminally investigate or prosecute any alcohol or drug abuse patient.[facility] CenterIn the event this information is protected by the Federal Confidentiality of Alcohol and Drug Abuse Patient Records regulations: The Federal rules restrict any use of the information to criminally investigate or prosecute any alcohol or drug abuse patient.[facility] CenterIn the event this information is protected by the Federal Confidentiality of Alcohol and Drug Abuse Patient Records regulations: The Federal rules restrict any use of the information to criminally investigate or prosecute any alcohol or drug abuse patient.[facility] CenterIn the event this information is protected by the Federal Confidentiality of Alcohol and Drug Abuse Patient Records regulations: The Federal rules restrict any use of the information to criminally investigate or prosecute any alcohol or drug abuse patient.[facility] Care Teams (unrecognized sec tion and content) Fork Operator Relationship Specialty Start Date End Date John Sadler MD [address] [place], [place] [id number] PCP - General Family Practice 06/19/19 Fork Operator Relationship Specialty Start Date End Date John Sadler MD [address] [place], [place] [id number] PCP - General Family Practice 06/19/19 Fork Operator Relationship Specialty Start Date End Date oJhn Sadler MD [address] [place] [address] PCP - General Family Practice 06/19/19 Fork Operator Relationship Specialty Start Date End Date John Sadler MD [address] [place] [address] PCP - General Family Practice 06/19/19 Fork Operator Relationship Specialty Start Date End Date John Sadler MD [facility] [place] [address] PCP - General Family Practice 06/19/19 Fork Operator Relationship Specialty Start Date End Date John Sadler MD [address] [place] [id number] PCP - General Family Practice 06/19/19 Fork Operator Relationship Specialty Start Date End Date John Sadler MD [address] [place] [address] PCP - General Family Practice 06/19/19 Fork Operator Relationship Specialty Start Date End Date John Sadler MD [address] [place] [address] [place] [address] PCP - General Family Practice 06/19/19 Fork Operator Relationship Specialty Start Date End Date John Sadler MD [address] [place] [address] [place] [address] PCP - General Family Practice 06/19/19 Fork Operator Relationship Specialty Start Date End Date John Sadler MD [address] [place] [address], [place] [address] PCP - General Family Practice 06/19/19 Fork Operator Relationship Specialty Start Date End Date John Sadler MD [address] [place] [address] [place] [address] PCP - General Family Practice 06/19/19 Fork Operator Relationship Specialty Start Date End Date John Sadler MD [address] [place] [address] PCP - General Family Practice 06/19/19 Fork Operator Relationship Specialty [place] [address] [place] [address] PCP - General Family Practice 06/19/19 Fork Operator Relationship Specialty Start Date End Date John Sadler MD [address] [place] [address] PCP - General Family Practice 06/19/19 Fork Operator Relationship Specialty Start Date End Date John Sadler MD [address] [place] [address] PCP - General Family Practice 06/19/19 Fork Operator Relationship Specialty Start Date End Date John Sadler MD [address] [place] [address] PCP - General Family Medicine 06/19/19 Fork Operator Relationship Specialty Start Date End Date John Sadler MD [address] [place] [address] PCP - General Family Medicine 06/19/19 Fork Operator Relationship Specialty Start Date End Date John Sadler MD [address] [place] [address] PCP - General Family Medicine 07/30/24 Tereza Bateman APRN.CNP [address] [place] [address] Construction [employer] Family Medicine 03/31/24 Stacia Verdugo PA-C [address] [place] [address] Construction Contractor Family [facility] 03/31/24 Fork Operator Relationship Specialty Start Date End Date John Sadler MD [address] [place] [address] PCP - General Family Medicine 07/30/24 Tereza Bateman, NAINA.GENERAL OPERATIONS AGENT [address] [place] [address] Construction Contractor Family [facility] 03/31/24 Stacia Verdugo PA-C [address] [place] [address] [facility] 03/31/24 Fork Operator Relationship Specialty Start Date End Date John Sadler MD [address] [place] [address] PCP - General Family Medicine 07/30/24 Tereza Bateman, SPINAL SURGEON.GENERAL OPERATIONS AGENT [address] [place] [address] [facility] Family Medicine 03/31/24 Stacia Verdugo PA-C [address] [place] [address] [facility] 03/31/24 Fork Operator Relationship Specialty Start Date End Date John Sadler MD [address] [place] [address] PCP - General Family Medicine 07/30/24 Tereza Bateman, SPINAL SURGEON.GENERAL OPERATIONS AGENT [address] [place] [address] Construction Contractor Family Medicine 03/31/24 Stacia Verdugo PA-C [address] [place] [address] Construction Contractor Family [facility] 03/31/24 Fork Operator Relationship Specialty Start Date End Date John Sadler MD [address] [place] [address] PCP - General Family Medicine 07/30/24 Stacia Verdugo PA-C [address] [place] [address] Construction Contractor [facility] 03/31/24 Goals (unrecognized section and content) Goals may be documented in a n alternate section Reason for Visit (unrecogniz ed section and content) Reason Comments Appointment Reason Comments ED Follow-up Patient was seen at [facility] ER Reason Comments Radiology NM Specialty Diagnoses / Procedures Referred By Contac t Referred To Contact MOLECULAR & FUNCTIONAL IMAGING Diagnoses RUQ pain Right upper quadrant pain Procedures NM HEPATOBILIARY W EF AND/OR RX HEPATOBIL SYST IMAG INC GB W/[place] [address] [place] [address] Molecular & Functional Imaging [address] [place] [address] Referral ID Status Reason Start Date Expiration Date V isits Requested Visits Authorized [id number] Closed Auto-Generate d Referral 08/07/2021 09/21/2021 1 1 Reason Comments Pain Specialty Diagnoses / Procedures Referred By Contac t Referred To Contact Rheumatology Diagnoses CRP elevated Arthralgia, unspecified joint Procedures CONSULT TO RHEUM/IMMUN DISEASE OFFICE/OUTPATIENT NEW HIGH MDM 60-74 MINUTES John Sadler MD [address] [place] [address] Referral ID Status Reason Start Date Expiration Date V isits Requested Visits Authorized [id number] Closed PCP Requested Referral 08/18/2021 08/18/2022 1 1 Reason Comments Patient Update Reason Comments Physical Reason Comments Results Appointment Reason Comments Abdominal Pain upper right and left quad pain. States left is worse than right. Hurts to take a deep breath or cough. Constant dull, achy and sharp GERD treatw with pepcid 2 0 mg twice daily Constipation treats with miralax as needed. Abnormal Weight Gain Specialty Diagnoses / Procedures Referred By Contac t Referred To Contact Gastroenterology Diagnoses RUQ pain Procedures CONSULT TO GASTROENTEROLOGY OFFICE/OUTPATIENT NEW HIGH MDM 60-74 MINUTES John Sadler MD [address] [place] [address] Referral ID Status Reason Start Date Expiration Date V isits Requested Visits Authorized [id number] Closed PCP Requested Referral 08/19/2021 08/19/2022 1 [address] Specialty Diagnoses / Procedures Referred By Contac t Referred To Contact CT IMAGING Diagnoses Elevated alkaline phosphatase level LUQ pain Epigastric pain Bloating Early satiety RUQ pain Hepatomegaly Nausea Procedures CT ABD/PEL W IVCON CT ABD & PELVIS W/CONTRAST Aleah Peralta, SPINAL SURGEON.GENERAL OPERATIONS AGENT [address] [place] [address] Ct Imaging Referral ID Status Reason Start Date Expiration Date V isits Requested Visits Authorized [id number] Closed Auto-Generate d Referral 11/10/2021 12/26/2021 1 1 Reason Comments Results Reason Onset Date Comments Refill Request 11/25/2021 Reason Comments Refill Request Reason Comments Yearly Exam FOR RECORDS PERTAINING TO PATIENTS WHO ARE OR HAVE BEEN ENROLLED IN A CHEMICAL DEPENDENCY/SUBSTANCEABUSE PROGRAM, SOME INFORMATION MAY BE OMITTED. This clinical summary was aggregated from multiple sources. Caution should be exercised in using it in the provision of clinical care. This summary normalizes information from multiple sources, and as a consequence, information in this document may materially change the coding, format and clinical context of patient data. In addition, data may be omitted in some cases. CLINICAL DECISIONS SHOULD BE BASED ON THE PRIMARY CLINICAL RECORDS. [employer] provides no warranty or guarantee of the accuracy or completeness of information in this document.
== END | disposition home or self-care (01) ==
LOC: CT 09:50
PROVIDERS: PCP Physician Assistant; Referring Provider Physician Assistant; Visit Provider Physician Assistant
DX: Z12.2 Encounter for screening for malignant neoplasm of respiratory organs (principal); Z87.891 Personal history of nicotine dependence
CPT/HCPCS: 71271